=== PATIENT | male | born 1940 | race Caucasian/White ===

== ENCOUNTER → 2017-05-11 | Outpatient (CLI) | payer MEDICARE, OTHER, SELFPAY | PROVIDERS: Family Provider Family Medicine; Visit Provider Family Medicine | DX: A09 Infectious gastroenteritis and colitis, unspecified (principal); R10.84 Generalized abdominal pain; R11.14 Bilious vomiting | CPT/HCPCS: 36415; 74022; 80053; 85025 ==

== ENCOUNTER → 2017-08-21 09:47 | Outpatient (CLI) | payer MEDICARE, OTHER, SELFPAY ==
--- NOTE | 2017-08-21 09:54 | NM_ITS ---
NM gastric emptying study INDICATION: Abdominal pain and bloating. ITS.REASON: ABD DISTENSION, NON-INTRACTABLE VOMITING WITHOUT NAUSEA TECHNIQUE: Patient was administered a radiolabeled meal which comprised of 0.52 uCi Tc sulfur colloid injected into 2 whole eggs served with 1 piece white toast with butter in 4 ounces of water. Scanning of the stomach performed after this meal performed for 90 minutes FINDINGS Using the entire stomach as Region of Interest: . The T1/2 half is 47 minutes. The T0 -T1/2 half is 47 minutes. These values are less than 90 minutes -and thus within normal limits. This uses entire stomach as the region of interest. . There is 87 % gastric emptying at the end of the study (Note A second set of image processing utilized in the proximal 60% of the stomach was also submitted to PACS but I favor the entire stomach FAMILIA) === IMPRESSION: ====== Normal gastric imaging study. Prompt gastric emptying with T1/2 = 47 minutes..
== END ==
PROVIDERS: Family Provider Family Medicine; PCP Family Medicine; Visit Provider Family Medicine
DX: R14.0 Abdominal distension (gaseous) (principal); R11.11 Vomiting without nausea
CPT/HCPCS: 78264; A9541

== ENCOUNTER → 2017-08-24 08:49 | Outpatient (CLI) | payer MEDICARE, OTHER, SELFPAY ==
--- NOTE | 2017-08-24 08:52 | FL_ITS ---
NM upper GI small bowel Ordering Physician: Kishore Khanna MD Patient Age: 77 years: Male HISTORY: ITS.REASON: ABD DISTENSION,V/N, TECHNIQUE: Air-contrast UGI ; with small bowel follow-through subsequent CT abdomen and pelvis and 2012 COMPARISON : ======== AIR-CONTRAST UGI: Cervical esophagus appears overall satisfactory. Generous anterior marginal osteophytes at lower C-spine at C6/7 indents the aspect cervical esophagus.. Less evident spurs at other levels.. Moderate cricopharyngeus muscle is just above this level and seems to relax appropriately with swallowing. These features both slightly indents the posterior cervical esophagus but do not impair passage of liquid barium. Vallecula and piriform sinuses appear symmetric. Small -moderate sliding hiatal hernia .. This is consistent evident Only mild tapering at the Z line, GE junction region. No stenosis or restriction. Upper normal mucosal pattern at hiatal hernia. The stomach appears normal. There was slight delay in gastric emptying with some mild irritability seen at the antrum and pylorus.. Upper normal rugal folds and antrum could reflect mild gastritis here but unimpressive. No definitive nor discrete ulcer.. Good gastric emptying and normal appearance to the duodenal bulb, and duodenal loop. Dextroscoliosis & degenerative changes throughout the lumbar spine noted. Also right hip prosthesis noted ======= SMALL BOWEL SERIES Small bowel follow-through then performed Proximal small bowel appeared normal throughout with no dilatation. No obstruction. No mucosal thickening. Terminal ileum appears normal. Normal transit ===IMPRESSION: ========= 1. No prominent findings. Minor observations 2. UGI: ..Only note Mild irritability and slight generous mucosal and distal antrum Could possibly reflect a minor antral gastritis. No ulcer is seen here, nor at pylorus, nor at duodenal bulb. 3. Small bowel series. Normal 2.
== END ==
PROVIDERS: Family Provider Family Medicine; PCP Family Medicine; Visit Provider Family Medicine
DX: R14.0 Abdominal distension (gaseous) (principal); R11.11 Vomiting without nausea
CPT/HCPCS: 74245

== ENCOUNTER → 2017-10-02 15:08 | Outpatient (POV) | payer MEDICARE, OTHER, SELFPAY | PROVIDERS: Visit Provider Nurse Practitioner Acute Care | DX: Z00.00 Encounter for general adult medical examination without abnormal findings (principal) ==

== ENCOUNTER → 2017-11-24 07:52 | Outpatient (CLI) | payer MEDICARE, OTHER, SELFPAY ==
--- NOTE | 2017-11-24 07:54 | US_ITS ---
US abdomen limited History:Abdominal pain with nausea and vomiting Ordering Physician:Shahzad Goodman MD Patient Age: 77 years Comparison:None Findings: Pancreas:Unremarkable. No obvious mass or abnormal fluid collection. No ductal dilatation Liver:There is increased echogenicity of the liver suggesting hepatic steatosis. Right Kidney:5 x 4 cm right renal cyst. No hydronephrosis Gallbladder: Multiple gallstones are present. No wall thickening, pericholecystic fluid, or biliary dilatation. Common bile duct is 3 mm. IMPRESSION: Cholelithiasis with hepatic steatosis
== END ==
PROVIDERS: Family Provider Family Medicine; PCP Family Medicine; Visit Provider Internal Medicine Gastroenterology
DX: R10.13 Epigastric pain (principal); R10.11 Right upper quadrant pain
CPT/HCPCS: 76705

== ENCOUNTER → 2018-01-15 09:21 | Outpatient (POV) | payer MEDICARE, OTHER, SELFPAY | PROVIDERS: Visit Provider Nurse Practitioner Acute Care | DX: Z00.00 Encounter for general adult medical examination without abnormal findings (principal) ==

== ENCOUNTER → 2018-02-20 14:09 | Outpatient (POV) | payer MEDICARE, OTHER, SELFPAY | PROVIDERS: Visit Provider Dermatology | DX: Z00.00 Encounter for general adult medical examination without abnormal findings (principal) ==

== ENCOUNTER → 2018-04-24 09:46 | Outpatient (POV) | payer MEDICARE, OTHER, SELFPAY | PROVIDERS: Visit Provider Dermatology | DX: Z00.00 Encounter for general adult medical examination without abnormal findings (principal) ==

== ENCOUNTER 2018-05-22 18:56 | Observation (INO) ==
[2018-05-22 19:28] LABS: Microscopic, Urine URINE MICROSCOPIC (MICROSCOPIC)
[2018-05-22 19:31] LABS: Appearance,Urine CLEAR (Clear); Bilirubin,Urine Negative (Negative); Blood, Urine 1+ (Negative); Color,Urine YELLOW (Yellow); Glucose,Urine (UA) Negative (Negative); Ketones,Urine Negative (Negative); Leukocyte Esterase,Urine Negative (Negative); PH,Urine 5.5 (5.0-8.5); Protein,Urine Negative (Negative); Specific Gravity, Urine >= 1.030 (1.005-1.030); Urobilinogen,Urine 0.2 EU/dl (0.2)
[2018-05-22 19:32] LABS: Basophils % 0.2 % (0.1-2.0); Eosinophils # 0.1 K/mm3 (0.0-0.4); Eosinophils % 0.9 % (0.1-12.0); Hematocrit 46.1 % (42.0-52.0); Hemoglobin 15.2 g/dL (14.1-18.0); Lymphocytes # 1.3 K/mm3 (0.7-4.5); Lymphocytes % 13.2 % (10-50); Mean Corpuscular HGB Conc 32.9 g/dL (31.8-35.4); Mean Corpuscular Hemoglobin 29.7 pg (27.0-31.2); Mean Corpuscular Volume 90.1 fl (80-94); Mean Platelet Volume 7.9 fl (7.4-10.4); Monocytes # 0.7 K/mm3 (0.1-1.0); Monocytes % 6.8 % (1.7-9.3); Neutrophils # 7.9 K/mm3 (1.8-7.8); Neutrophils % 78.9 % (37.0-80.0); Platelet Count 160 K/mm3 (142-424); Red Blood Count 5.11 M/mm3 (4.60-6.20); Red Cell Distribution Width 13.8 % (11.5-17.5); White Blood Count 10.1 K/mm3 (4.8-10.8)
[2018-05-22 19:39] LABS: Bacteria,Urine 1+ /lpf; Mucus,Urine 1+ /lpf
[2018-05-22 19:46] LABS: Alanine Aminotransferase 23 U/L (12-78); Albumin Level 3.6 gm/dL (3.4-5.0); Alkaline Phosphatase 118 U/L (46-116); Amylase 60 U/L (25-115); Anion Gap 14.1 mEq/L (5-15); Aspartate Amino Transferase 21 U/L (15-37); Bilirubin,Total 0.8 mg/dL (0.2-1.0); Blood Urea Nitrogen 19 mg/dL (7-18); C-Reactive Protein 3.2 mg/L (0.0-0.9); Calcium 8.9 mg/dL (8.5-10.1); Carbon Dioxide 26 mmol/L (21.0-32.0); Chloride 103 mmol/L (98-107); Globulin 3.7 gm/dl (1.3-3.2); Glucose 104 mg/dL (74-106); Lipase 98 u/L (73-393); Potassium 3.1 mmoL/L (3.5-5.1); Sodium 140 mmol/L (136-145); Total Protein,Serum 7.3 gm/dL (6.4-8.2)
--- NOTE | 2018-05-22 20:04 | Emergency Department Note ---
ED Disposition Clinical Impression: Colitis Disposition: Admitted as Observation Condition on Discharge: Good Time of Disposition: 22:00 - Critical Care Critical Care Time: No Attestation: On 05/22/18, the high probability of a clinically significant, sudden or life threatening deterioration of the following system(s) required my full and direct attention, intervention and personal management. The time I documented below is in addition to time spent performing reported procedures but includes the fo wilnerwing listed in this critical care notation. Medical Decision Making - Medical Records Medical records reviewed: Yes: I reviewed the patient's medical records. - Georges Inquiry Pt receiving controlled substance: No Georges was queried for this patient: No Vital Signs: 05/22/18 19:09 05/22/18 19:10 05/22/18 19:35 Temperature 98.5 F 98.5 F Temperature Source Oral Oral Pulse Rate Pulse Rate [Right Brachial] 92 H 92 H 85 Respiratory Rate 15 15 16 Blood Pressure Blood Pressure [Right Arm] 164/92 H 164/92 H 170/89 H Blood Pressure Mean [Right Arm] 116 116 116 Blood Pressure Source [Right Arm] Automatic Cuff Blood Pressure Position [Right Arm] Sitting 02 Sat by Pulse Oximetry 95 95 96 Oxygen Delivery Method Room Air Room Air 05/22/18 21:15 05/22/18 21:31 Temperature 98.5 F 98.4 F Temperature Source Oral Oral Pulse Rate 66 Pulse Rate [Right Brachial] 80 Respiratory Rate 15 16 Blood Pressure 159/76 H Blood Pressure [Right Arm] 176/93 H Blood Pressure Mean [Right Arm] 120 Blood Pressure Source [Right Arm] Automatic Cuff Blood Pressure Position [Right Arm] Sitting 02 Sat by Pulse Oximetry 98 Oxygen Delivery Method Room Air Room Air - Lab Data Lab results reviewed: Yes: I reviewed the patient's lab results. Lab Results 05/22/18 19:20: Urine Color Yellow, Urine Appearance Clear, Urine pH 5.5, Ur Specific [place] >= 1.030, Urine Protein Negative, Urine Glucose (UA) Negative, Urine Ketones Negative, Urine Blood 1+, Urine Nitrate Negative, Urine Bilirubin Negative, Urine Urobilinogen 0.2, Ur Leukocyte Esterase Negative, Urine RBC 5- 10, Urine WBC 3-5, Ur Squamous Epith Cells 3-5, Urine Bacteria 1+, Urine Mucus 1+ 05/22/18 19:20: WBC 10.1, RBC 5.11, Hgb 15.2, Hct 46.1, MCV 90.1, MCH 29.7, MCHC 32.9, RDW 13.8, Plt Count 160, MPV 7.9, Neut % (Auto) 78.9, Lymph % (Auto) 13.2, [place] % (Auto) 6.8, Eos % (Auto) 0.9, Baso % (Auto) 0.2, Neut # (Auto) 7.9 H, Lymph # (Auto) 1.3, [place] # (Auto) 0.7, Eos # (Auto) 0.1, Baso # (Auto) 0.0, ESR 23 H 05/22/18 19:20: Sodium 140, Potassium 3.1 L, Chloride 103, Carbon Dioxide 26, Anion Gap 14.1, BUN 19 H, Creatinine 1.31 H, Estimated Creat Clear 62, Estimated GFR 53 L, Est GFR ( Amer) 64, Glucose 104, Calcium 8.9, Total Bilirubin 0.8, AST 21, ALT 23, Alkaline Phosphatase 118 H, Troponin I < 0.02, C-Reactive Protein 3.2 H, Total Protein 7.3, Albumin 3.6, Globulin 3.7 H, Albumin/Globulin Ratio 1.0 L, Amylase 60, Lipase 98 05/22/18 19:20: Lactate 0.9 Result diagrams: 05/23/18 05:38 05/23/18 05:38 Orders (Tests/Meds): ED MEDICATIONS Discontinued Medications Generic Name Dose Route Start Last Admin Trade Name Freq PRN Reason Stop Dose Admin Acetaminophen 650 mg 05/22/18 21:22 Acetaminophen 325mg Tab PO 06/21/18 21:21 Q4HP PRN As Needed for Fever or Pain Sodium Chloride 1,000 mls @ 999 mls/hr 05/22/18 19:15 05/22/18 19:16 Sod Chlor 0.9% 1000ml Bag IV 05/22/18 20:15 999 mls/hr .Q1H1M CABRERA Administration Sodium Chloride 1,000 mls @ 999 mls/hr 05/22/18 21:22 Sod Chlor 0.9% 1000ml Bag IV 05/22/18 22:22 .Q1H1M CABRERA Lactated Ringer's 1,000 mls @ 100 mls/hr 05/22/18 21:22 05/22/18 22:23 Lactated Ringer's 1000 Ml Bag IV 06/21/18 21:21 100 mls/hr .Q10H CABRERA Administration Ketorolac Tromethamine 30 mg 05/22/18 19:13 05/22/18 19:16 Toradol 30mg/Ml Vial IV 05/22/18 19:14 30 mg ONCE ONE Administration Pt's Own Med 20 mg 05/23/18 09:00 05/23/18 10:13 Esomeprazole PO 06/22/18 08:59 Not Given Magnesium [Nexium DAILY [facility] 24hr] 20 Mg Ondansetron HCl 4 mg 05/22/18 19:13 05/22/18 19:16 Zofran 4mg/2ml Vial IV 05/22/18 19:14 4 mg ONCE ONE Administration ORDERS Category Date Time Status Urinalysis and Microscopic Stat Lab 05/22/18 19:20 Ordered Abdominal Pain HPI - General Chief Complaint: Abdominal Pain Stated Complaint: PASSING BLOOD THUR STOOLS Time Seen by Provider: 05/22/18 20:03 Mode of Arrival: Ambulatory Source of Information: Patient, Spouse Limitations: No Limitations Description of Symptoms (Recalled from ER Triage Doc. by RN): Reports bleeding from his bowels, started last night. Reports abd pain, nausea, and vomiting. 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 - History of Present Illness HPI narrative: began last night, has passed "bright red blood" per rectum 4-5 times since. No orthostatic symptoms atg present. GI doc is Shahzad Buckner MD complaint: abdominal pain - Related Data Home Medications Medication Instructions Recorded Confirmed RX: Esomeprazole Magnesium [Nexium 20 mg PO DAILY 10/10/17 05/22/18 24Hr] RX: L.acidoph,Paracasei, B.lactis 1 each PO DAILY 05/22/18 05/22/18 [Probiotic] Allergies Allergy/AdvReac Type Severity Reaction Status Date / Time No Known Allergies Allergy Verified 11/14/17 13:53 [facility] History - Hepatitis A Screen Drug use history?: No High risk sexual behaviors?: No History of sexually transmitted infection?: No Currently employed?: No Childcare worker?: No Do you have indoor plumbing?: Yes Do you have electricity?: Yes Attestation statement:: This patient has been screened for Hepatitis A risk factors. I have reviewed the patient's past medical history: Yes Medical History: Reports:: Cancer (SKIN), Gastroesophageal Reflux Disease(GERD) Denies:: Diabetes Mellitus Type 1, Diabetes Mellitus Type 2, Internal Pacemaker, Lung Disease, MRSA, Seizures Other Surgeries: No: Pacemaker Amputation: No Fractures: No Comment: R Hip, Cataract, hernia - Social History Educational Level: Completed Grade School Alcohol Intake: never - Psychiatric History Expresses thoughts of harming self/others: None Suicide Plan Description: No Plan ROS Obtained: Yes All systems reviewed & no additional complaints - Constitutional Constitutional: Reports system reviewed and no additional complaints, except as docu, Reports chills, Denies fever(s), Denies weakness - Eyes Eyes: Reports system reviewed and no additional complaints, except as docu, Denies change in vision - ENT Ears, Nose, Mouth, and Throat: Reports system reviewed and no additional complaints, except as docu, Reports difficulty swallowing, Reports headache(s), Reports sinus pressure, Reports sore throat - Cardiovascular Cardiovascular: Reports system reviewed and no additional complaints, except as docu, Denies chest pain, Denies dyspnea, Denies palpitations, Denies rapid heart rate - Respiratory Respiratory: Yes system reviewed and no additional complaints, except as docu, No chest congestion, No cough - Gastrointestinal Gastrointestingal: Reports: system reviewed and no additional complaints, except as docu, abdominal pain, belching, cramping, diarrhea, bright red blood in stools. Denies: coffee ground emesis - Genitourinary Male Genitourinary: Reports system reviewed and no additional complaints, except as docu, Denies flank pain - Musculoskeletal Musculoskeletal: Reports system reviewed and no additional complaints, except as docu, Denies joint pain, Denies decreased muscle mass, Denies limited range of motion, Denies muscle aches - Integumentary/Breasts Skin/Breast: Reports system reviewed and no additional complaints, except as docu, Denies rash, Denies skin swelling - Neurologic Neurologic: Reports system reviewed and no additional complaints, except as do cu, Denies syncope - Hematologic/Lymphatic Henatologic/Lymphatic: Denies easy bleeding, Denies easy bruising - Allergic/Immunologic Allergic/Immunologic: Reports system reviewed and no additional complaints, except as docu Physical Exam - General General appearance: alert, in no apparent distress - Head Head exam: atraumatic - Eye Eye exam: Present: normal appearance, PERRL, EOMI - ENT ENT exam: Present: normal exam, normal oropharynx, mucous membranes moist, TM's normal bilaterally, normal external ear exam - Neck Neck exam: Present: normal inspection - Chest Chest inspection: Present: normal inspection, symmetric chest wall rise. Absent: tenderness - Respiratory Respiratory exam: Present: normal lung sounds bilaterally. Absent: respiratory distress - Cardiovascular Cardiovascular exam: Present: regular rate. Absent: bradycardia, tachycardia - Abdominal Exam Abdominal exam: Present: soft, normal bowel sounds. Absent: distention, tenderness, guarding - Extremities Exam Extremities exam: Present: normal inspection, full ROM, normal capillary refill. Absent: calf tenderness - Back Exam Back exam: Present: normal inspection - Neurological Exam Neurological exam: Present: alert, oriented X3 - Psychiatric Psychiatric exam: Present: normal affect, normal mood - Skin Skin exam: Present: warm, dry, intact, normal color - Lymphatic Lymphatic Findings: no adenopathy
[2018-05-22 20:16] LABS: Erythrocyte Sedimentation Rate 23 mm/hr (0-20)
[2018-05-23 06:35] LABS: Basophils % 0.5 % (0.1-2.0); Eosinophils # 0.1 K/mm3 (0.0-0.4); Eosinophils % 1.8 % (0.1-12.0); Hematocrit 40.6 % (42.0-52.0); Lymphocytes # 1.3 K/mm3 (0.7-4.5); Lymphocytes % 18.9 % (10-50); Mean Corpuscular HGB Conc 32.1 g/dL (31.8-35.4); Mean Corpuscular Hemoglobin 29.6 pg (27.0-31.2); Mean Corpuscular Volume 92.3 fl (80-94); Mean Platelet Volume 7.7 fl (7.4-10.4); Monocytes # 0.4 K/mm3 (0.1-1.0); Neutrophils # 5.2 K/mm3 (1.8-7.8); Neutrophils % 72.9 % (37.0-80.0); Platelet Count 137 K/mm3 (142-424); Red Cell Distribution Width 13.9 % (11.5-17.5); White Blood Count 7.1 K/mm3 (4.8-10.8)
[2018-05-23 06:46] LABS: Calcium 8.4 mg/dL (8.5-10.1)
--- NOTE | 2018-05-23 07:31 | H&P/Discharge Summary ---
General - General Admission date:: 05/22/18 Discharge date: 05/23/18 *Admission Date: 05/22/18 *Chief complaint: Blood in stool *History of present illness: 78-year-old male was in his normal state of health on May 21 when he developed sudden onset of diaphoresis, crampy abdominal pain and ultimately began passing blood in his stool. Patient had been feeling well throughout the day on when he went and ate at [employer] with his family. Approximately 2 hours after having his favorite meal of roast beef mashed potatoes, and corn he developed his symptoms. Patient had frequent bowel mov ements mixed with blood. Yesterday evening he had a movement that had so much blood that filled the toilet bowl. This is when he became worried and presented to the emergency department. In the ER patient's workup revealed some mild abdominal tenderness, and CT scan showing some mild left-sided colitis, and will hemoglobin and hematocrit. Patient was admitted overnight for observation on IV fluids. [facility] History I have reviewed the patient's past medical history: Yes Medical History: Reports:: Cancer (SKIN), Gastroesophageal Reflux Disease(GERD) Denies:: Diabetes Mellitus Type 1, Diabetes Mellitus Type 2, Internal Pacemaker, Lung Disease, MRSA, Seizures Other Surgeries: Yes: Cholecystectomy, Colon Resection. No: Pacemaker Amputation: No Fractures: No - *Social History Educational Level: Completed Grade School Smoking Status: Former smoker Tobacco Type: cigarettes # Packs/Day (cigarettes): 1 #Yrs smoked (if former smoker): 40 Alcohol Intake: never Occupational Status: retired Housing: house Household Members: spouse - Psychiatric History Expresses thoughts of harming self/others: None Suicide Plan Description: No Plan *Family Hx:: Cancer, Hypertension Review of Systems - Review of Systems Review of systems:: pertinent systems reviewed and negative unless documented below - *Neurologic Reports headache(s), Denies fainting, Denies weakness Exam Vital signs and Labs for Last 24 Hours: Temp Pulse Resp BP Pulse Ox 97.9 F 75 16 130/72 94 L 05/23/18 04:00 05/23/18 04:00 05/23/18 04:00 05/23/18 04:00 05/23/18 04:00 Laboratory Results - last 24 hr 05/22/18 19:20: Urine Color Yellow, Urine Appearance Clear, Urine pH 5.5, Ur Specific [place] >= 1.030, Urine Protein Negative, Urine Glucose (UA) Negative, Urine Ketones Negative, Urine Blood 1+, Urine Nitrate Negative, Urine Bilirubin Negative, Urine Urobilinogen 0.2, Ur Leukocyte Esterase Negative, Urine RBC 5- 10, Urine WBC 3-5, Ur Squamous Epith Cells 3-5, Urine Bacteria 1+, Urine Mucus 1+ 05/22/18 19:20: WBC 10.1, RBC 5.11, Hgb 15.2, Hct 46.1, MCV 90.1, MCH 29.7, MCHC 32.9, RDW 13.8, Plt Count 160, MPV 7.9, Neut % (Auto) 78.9, Lymph % (Auto) 13.2, [place] % (Auto) 6.8, Eos % (Auto) 0.9, Baso % (Auto) 0.2, Neut # (Auto) 7.9 H, Lymph # (Auto) 1.3, [place] # (Auto) 0.7, Eos # (Auto) 0.1, Baso # (Auto) 0.0, ESR 23 H 05/22/18 19:20: Sodium 140, Potassium 3.1 L, Chloride 103, Carbon Dioxide 26, Anion Gap 14.1, BUN 19 H, Creatinine 1.31 H, Estimated Creat Clear 62, Estimated GFR 53 L, Est GFR ( Amer) 64, Glucose 104, Calcium 8.9, Total Bilirubin 0.8, AST 21, ALT 23, Alkaline Phosphatase 118 H, Troponin I < 0.02, C-Reactive Protein 3.2 H, Total Protein 7.3, Albumin 3.6, Globulin 3.7 H, Albumin/Globulin Ratio 1.0 L, Amylase 60, Lipase 98 05/22/18 19:20: Lactate 0.9 05/23/18 05:38: WBC 7.1 D, RBC 4.40 L, Hgb 13.0 L D, Hct 40.6 L, MCV 92.3, MCH 29.6, MCHC 32.1, RDW 13.9, Plt Count 137 L, MPV 7.7, Neut % (Auto) 72.9, Lymph % (Auto) 18.9, [place] % (Auto) 6.0, Eos % (Auto) 1.8, Baso % (Auto) 0.5, Neut # (Auto) 5.2, Lymph # (Auto) 1.3, [place] # (Auto) 0.4, Eos # (Auto) 0.1, Baso # (Auto) 0.0 05/23/18 05:38: Sodium 142, Potassium 3.0 L, Chloride 107, Carbon Dioxide 27, Anion Gap 11.0, BUN 18, Creatinine 1.21, Estimated Creat Clear 69, Estimated GFR 58 L, Est GFR ( Amer) 70, Glucose 88, Calcium 8.4 L I & O for Last 24 hours: Intake & Output 05/20/18 05/21/18 05/22/18 05/23/18 11:59 11:59 11:59 11:59 Intake Total 1654 / 1654 Balance 1654 / 1654 Weight 209 lb 2 oz Narrative: Patient appears well and in no distress. He is oriented to person and time. There is no pallor. There is no diaphoresis. Oropharynx is moist and clear. Neck is without lymphadenopathy. Lungs are clear. Heart has a regular rate and rhythm. Abdomen is soft, nontender, nondistended with normal bowel sounds. Extremities are warm to the touch and there is no edema. He has active range of motion in all extremities. Hospital Course Hospital Course: Patient was admitted for observation. He did not have another bowel movement. Plan had been to test stool for infection. Based on patient's story of onset of symptoms shortly after a meal I suspect some mild food poisoning. Patient's symptoms seemingly resolved and he was discharged home. Patient will follow-up in the office sometime next week. He will be contacted my office regarding his follow-up appointment Results Labs on day of discharge: Labs from last 24 hours 05/23/18 05/23/18 05/22/18 05:38 05:38 19:20 WBC 7.1 D RBC 4.40 L Hgb 13.0 L D Hct 40.6 L MCV 92.3 MCH 29.6 MCHC 32.1 RDW 13.9 Plt Count 137 L MPV 7.7 Neut % (Auto) 72.9 Lymph % (Auto) 18.9 [place] % (Auto) 6.0 Eos % (Auto) 1.8 Baso % (Auto) 0.5 Neut # (Auto) 5.2 Lymph # (Auto) 1.3 [place] # (Auto) 0.4 Eos # (Auto) 0.1 Baso # (Auto) 0.0 ESR Sodium 142 Potassium 3.0 L Chloride 107 Carbon Dioxide 27 Anion Gap 11.0 BUN 18 Creatinine 1.21 Estimated Creat Clear 69 Estimated GFR 58 L Est GFR ( Amer) 70 Glucose 88 Lactate 0.9 Calcium 8.4 L Total Bilirubin AST ALT Alkaline Phosphatase Troponin I C-Reactive Protein Total Protein Albumin Globulin Albumin/Globulin Ratio Amylase Lipase Urine Color Urine Appearance Urine pH Ur Specific [place] Urine Protein Urine Glucose (UA) Urine Ketones Urine Blood Urine Nitrate Urine Bilirubin Urine Urobilinogen Ur Leukocyte Esterase Urine RBC Urine WBC Ur Squamous Epith Cells Urine Bacteria Urine Mucus 05/22/18 05/22/18 05/22/18 19:20 19:20 19:20 WBC 10.1 RBC 5.11 Hgb 15.2 Hct 46.1 MCV 90.1 MCH 29.7 MCHC 32.9 RDW 13.8 Plt Count 160 MPV 7.9 Neut % (Auto) 78.9 Lymph % (Auto) 13.2 [place] % (Auto) 6.8 Eos % (Auto) 0.9 Baso % (Auto) 0.2 Neut # (Auto) 7.9 H Lymph # (Auto) 1.3 [place] # (Auto) 0.7 Eos # (Auto) 0.1 Baso # (Auto) 0.0 ESR 23 H Sodium 140 Potassium 3.1 L Chloride 103 Carbon Dioxide 26 Anion Gap 14.1 BUN 19 H Creatinine 1.31 H Estimated Creat Clear 62 Estimated GFR 53 L Est GFR ( Amer) 64 Glucose 104 Lactate Calcium 8.9 Total Bilirubin 0.8 AST 21 ALT 23 Alkaline Phosphatase 118 H Troponin I < 0.02 C-Reactive Protein 3.2 H Total Protein 7.3 Albumin 3.6 Globulin 3.7 H Albumin/Globulin Ratio 1.0 L Amylase 60 Lipase 98 Urine Color Yellow Urine Appearance Clear Urine pH 5.5 Ur Specific [place] >= 1.030 Urine Protein Negative Urine Glucose (UA) Negative Urine Ketones Negative Urine Blood 1+ Urine Nitrate Negative Urine Bilirubin Negative Urine Urobilinogen 0.2 Ur Leukocyte Esterase Negative Urine RBC 5-10 Urine WBC 3-5 Ur Squamous Epith Cells 3-5 Urine Bacteria 1+ Urine Mucus 1+ DS: Diagnosis - Discharge Diagnosis (1) Colitis Status: Acute Discharge Medications - Medications for Discharge Home Medication List at Discharge: Continue Esomeprazole Magnesium [Nexium 24Hr] 20 mg PO DAILY L.acidoph,Paracasei, B.lactis [Probiotic] 1 each PO DAILY Disposition Disposition: Home, Self-Care
--- NOTE | 2018-05-23 07:39 | Pharmacy Consult Notes ---
[facility] Pharmacy VTE Monitoring - Patient Demographics Admission date: 05/22/18 Report Date: 05/23/18 Time: 07:39 Allergies/Adverse Reactions: Patient Allergies No Known Allergies Allergy (Verified 11/14/17 13:53) Height: 1.75 m Weight: 94.858 kg Patient Problems: Current Active Problems Colitis (Acute) - VTE Risk Labs: VTE Related Lab Results Hgb 13.0 g/dL (14.1-18.0) L D 05/23/18 05:38 Hct 40.6 % (42.0-52.0) L 05/23/18 05:38 Plt Count 137 K/mm3 (142-424) L 05/23/18 05:38 BUN 18 mg/dL (7-18) 05/23/18 05:38 Creatinine 1.21 mg/dL (0.70-1.30) 05/23/18 05:38 Estimated Creat Clear 69 mL/min (50-200) 05/23/18 05:38 Was VTE Risk Assessment Performed: Yes VTE Score: 3 VTE Risk Level: Low Risk - Prophylaxis VTE Prophylaxis Ordered?: Yes Types of VTE Prophylaxis: TEDS Knee High Location of Applied Device: Bilateral Lower Extremeties - VTE Diagnosis Confirmed Treatment or plan recommended: Continue Current Treatment
== END 2018-05-23 10:47 | disposition home or self-care (01) ==
LOC: ER 18:56 → 2ND 18:56
PROVIDERS: ADMIT Family Medicine; ATTEND Family Medicine
CPT/HCPCS: 36415; 74176; 80048; 80053; 81001; 82150; 83605; 83690; 84484; 85025; 85651; 86140; 96365; 96375; 99284; G0378; J2405

== ENCOUNTER → 2019-01-29 14:24 | Outpatient (POV) | payer MEDICARE, OTHER, SELFPAY | PROVIDERS: Visit Provider Dermatology | DX: Z00.00 Encounter for general adult medical examination without abnormal findings (principal) ==

== ENCOUNTER → 2019-03-04 08:42 | Outpatient (POV) | payer MEDICARE, OTHER, SELFPAY | PROVIDERS: PCP Family Medicine; Visit Provider Nurse Practitioner Family | DX: Z00.00 Encounter for general adult medical examination without abnormal findings (principal) ==

== ENCOUNTER → 2019-06-28 10:05 | Outpatient (CLI) | payer MEDICARE, SELFPAY ==
--- NOTE | 2019-06-28 10:14 | CA_ITS ---
APPROVED REPORT EXAM: Comprehensive 2D, Doppler, and color-flow Echocardiogram Privacy Compliance Manager: Sandra Mayfield RDCS Ht: 5 ft 10 in Wt: 208lbs BSA: 2.12 BP: 130/72 mmHg Indications: Shortness of Breath, Dizziness and Vertigo, Hypertension/HDD 2D Dimensions LVOT 1.96 cm (M/F) 1.5-2.5 M-Mode Dimensions RVDd 2.81 cm (0.9-2.6) LVDd 4.66 cm (3.5-5.7) LVDs 3.86 cm (3.5-5.7) IVSd 1.00 cm (0.6-1.1) PWd 0.84 cm (0.6-1.1) EF (Teich) 35.90% FS 17.20% EDV (Teich) 100.30 mL ESV (Teich) 64.30 mL LV Diastology E/A Ratio 0.69 Mitral Valve MV A Velocity 72.00 (40-130 cm/s) Left Ventricle Left atrium is mildly enlarged, left ventricle is normal size, mild concentric left ventricular hypertrophy, visually estimated ejection fraction 55% with no regional wall motion abnormality, grade 1 diastolic dysfunction seen without tissue Doppler evidence of raise left atrial pressure. Right Ventricle Right atrium is mildly enlarged, right ventricle is normal size and contractility. Aortic Valve Aortic valve is minimally thickened and calcified, leaflet continue to display mobility. Mitral Valve Mitral valve is grossly normal, there is mild mitral regurgitation. Tricuspid Valve Tricuspid valve is grossly normal, there is mild tricuspid regurgitation, tricuspid regurgitation jet velocity is inadequate for calculation of the right ventricular systolic pressure. Pulmonic Valve Pulmonic valve is poorly visualized. Great Vessels Aortic root is normal size. Pericardium No significant pericardial effusion noted. Conclusion 1. Mild biatrial enlargement, normal left ventricular size, mild concentric left ventricular hypertrophy, visually estimated ejection fraction 55% with no regional wall motion abnormality, grade 1 diastolic dysfunction seen without tissue Doppler evidence of raise left atrial pressure. 2. Mild mitral and tricuspid regurgitation. 3. No significant pericardial effusion noted. Electronically signed by : Raheem Chris, 06/28/2019 13:43:46
== END ==
PROVIDERS: PCP Family Medicine; Visit Provider Nurse Practitioner
DX: R06.02 Shortness of breath (principal); R60.9 Edema, unspecified
CPT/HCPCS: 93306

== ENCOUNTER → 2020-07-16 09:24 | Outpatient (POV) | payer MEDICARE, SELFPAY | PROVIDERS: Visit Provider Audiologist | DX: Z00.00 Encounter for general adult medical examination without abnormal findings (principal) ==

== ENCOUNTER → 2020-07-29 15:14 | Outpatient (CLI) | payer MEDICARE, SELFPAY ==
--- NOTE | 2020-07-29 15:23 | XR_ITS ---
PROCEDURE: XR ACUTE ABDOMEN SERIES CLINICAL INDICATION: ABD PAIN COMPARISON: CR CXR CHEST(2 VIEWS-NOT PORTABLE) from 10/02/2013 FINDINGS: Frontal view of the chest shows no acute finding. 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 Mild pleural thickening noted along the right lateral hemithorax. Lungs are clear. Upright and supine views of the abdomen show scattered air-fluid levels in both large and small bowel and could be due to ileus or enterocolitis. No free air apparent. Lumbar scoliosis convex right. Sclerosis involves the SI joint on the left. Prior right hip hemiarthroplasty. Degenerative changes left hip. IMPRESSION: Scattered air-fluid levels within large and small bowel which may represent ileus and or enterocolitis Dictated by: Laith Vizcarra MD 07/29/2020 16:04 Laith Vizcarra MD in [place] 07/29/2020 16:04
== END ==
PROVIDERS: PCP Family Medicine; Visit Provider Family Medicine
DX: R10.9 Unspecified abdominal pain (principal)
CPT/HCPCS: 74021

== ENCOUNTER → 2020-08-20 12:17 | Outpatient (CLI) | payer MEDICARE, SELFPAY ==
--- NOTE | 2020-08-20 12:25 | XR_ITS ---
PROCEDURE: XR KUB CLINICAL INDICATION: ABD PAIN COMPARISON: CT ABDPELWO CT abdomen pelvis wo con from 05/22/2018 FINDINGS: Dextroscoliosis of the lumbar spine noted. Non-specific nonobstructive bowel gas pattern is noted. No focal calcifications projecting over the renal outlines. Total right hip arthroplasty. IMPRESSION: Nonspecific nonobstructive bowel gas pattern. No acute abnormality. Dictated by: Loli Brock 08/20/2020 17:20 Loli Brock in OV 08/20/2020 17:20
--- NOTE | 2020-08-20 12:25 | XR_ITS ---
PROCEDURE: XR CHEST 2V CLINICAL HISTORY: RT SIDED CHEST PAIN COMPARISON: CR CXR1 CHEST-PORTABLE from 05/22/2012 CR CXR1 CHEST-PORTABLE from 05/23/2012 CR CXR CHEST(2 VIEWS-NOT PORTABLE) from 10/02/2013 FINDINGS: The cardiomediastinal silhouette and pulmonary vascularity are within normal limits. The lungs are clear without infiltrates, suspicious nodules, or pleural effusions. No acute bony abnormalities. IMPRESSION: No acute findings. Dictated by: Loli Brock 08/20/2020 17:18 Loli Brock in OV 08/20/2020 17:18
[2020-08-20 13:27] LABS: Basophils % 0.3 % (0.1-2.0); Eosinophils # 0.1 K/mm3 (0.0-0.4); Eosinophils % 0.5 % (0.1-12.0); Hematocrit 45.1 % (42.0-52.0); Hemoglobin 15.1 g/dL (14.1-18.0); Lymphocytes % 9.8 % (10-50); Mean Corpuscular HGB Conc 33.4 g/dL (31.8-35.4); Mean Corpuscular Hemoglobin 29.8 pg (27.0-31.2); Mean Corpuscular Volume 89.2 fl (80-94); Mean Platelet Volume 7.8 fl (7.4-10.4); Monocytes # 0.8 K/mm3 (0.1-1.0); Monocytes % 8.2 % (1.7-9.3); Neutrophils % 81.2 % (37.0-80.0); Platelet Count 155 K/mm3 (142-424); Red Blood Count 5.06 M/mm3 (4.60-6.20); Red Cell Distribution Width 13.9 % (11.5-17.5); White Blood Count 9.8 K/mm3 (4.8-10.8)
[2020-08-20 14:23] LABS: Chloride 98 mmol/L (98-107); Sodium 137 mmol/L (136-145)
[2020-08-20 14:26] LABS: Alanine Aminotransferase 16 U/L (12-78); Alkaline Phosphatase 91 U/L (38-126); Aspartate Amino Transferase 24 U/L (17-59); Bilirubin,Total 1.1 mg/dl (0.2-1.3); Blood Urea Nitrogen 19 mg/dl (9-20); Estimated Glomerular Filt Rate 53 ml/min (>60); GFR (African American) 64 ML/MIN (>60)
[2020-08-20 14:27] LABS: Albumin Level 4.4 g/dl (3.5-5.0); Albumin/Globulin Ratio 1.6 (1.1-1.8); Calcium 9.8 mg/dl (8.4-10.2); Carbon Dioxide 33 mmol/L (22.0-30.0); Globulin 2.7 g/dL (1.3-3.2); Glucose 96 mg/dl (74-100); Total Protein,Serum 7.1 g/dl (6.3-8.2)
[2020-08-20 14:39] LABS: Troponin I < 0.01 ng/ml (0.00-0.034)
== END ==
PROVIDERS: PCP Family Medicine; Visit Provider Nurse Practitioner Family
DX: R07.9 Chest pain, unspecified (principal); R10.11 Right upper quadrant pain
CPT/HCPCS: 36415; 71046; 74018; 80053; 84484; 85025

== ENCOUNTER → 2020-09-03 09:04 | Outpatient (POV) | payer MEDICARE, SELFPAY | PROVIDERS: Visit Provider Audiologist | DX: Z00.00 Encounter for general adult medical examination without abnormal findings (principal) ==

== ENCOUNTER → 2020-09-17 08:59 | Outpatient (POV) | payer MEDICARE, SELFPAY | PROVIDERS: Visit Provider Audiologist | DX: Z00.00 Encounter for general adult medical examination without abnormal findings (principal) ==

== ENCOUNTER → 2020-10-01 10:35 | Outpatient (POV) | payer MEDICARE, SELFPAY | PROVIDERS: Visit Provider Audiologist | DX: Z00.00 Encounter for general adult medical examination without abnormal findings (principal) ==

== ENCOUNTER → 2020-12-17 09:06 | Outpatient (POV) | payer MEDICARE, SELFPAY | PROVIDERS: Visit Provider Audiologist | DX: Z00.00 Encounter for general adult medical examination without abnormal findings (principal) ==

== ENCOUNTER → 2021-01-19 15:23 | Outpatient (CLI) | payer MEDICARE, SELFPAY ==
[2021-01-19 17:04] LABS: Troponin I < 0.01 ng/ml (0.00-0.034)
== END ==
PROVIDERS: Visit Provider Family Medicine
DX: R07.9 Chest pain, unspecified (principal)
CPT/HCPCS: 36415; 84484

== ENCOUNTER → 2021-02-27 09:10 | Outpatient (CLI) | payer MEDICARE, SELFPAY | PROVIDERS: Visit Provider Ophthalmology | DX: Z01.812 Encounter for preprocedural laboratory examination (principal); Z11.52 Encounter for screening for COVID-19 | CPT/HCPCS: C9803; U0003; U0005 ==

== ENCOUNTER 2021-03-02 08:27 | Day surgery (SDC) | payer MEDICARE, SELFPAY ==
[2021-02-24 14:30] VITALS: BMI 27.8
[2021-03-02 08:52] VITALS: BP 167/81; PULSE 48; RESP 18; TEMP 36.4; O2SAT 99
[2021-03-02 10:07] VITALS: BP 136/98; PULSE 48; RESP 18; TEMP 36.4; O2SAT 99
== END 2021-03-02 10:10 | disposition home or self-care (01) ==
LOC: OUTP 08:31
PROVIDERS: PCP Family Medicine; Visit Provider Ophthalmology
PROC: (CPT 66821; principal; 2021-03-02 09:00)
DX: H26.493 Other secondary cataract, bilateral (principal); Z96.1 Presence of intraocular lens; I10 Essential (primary) hypertension; Z79.899 Other long term (current) drug therapy
CPT/HCPCS: 66821

== ENCOUNTER → 2022-07-26 12:57 | Outpatient (CLI) | payer MEDICARE, SELFPAY ==
--- NOTE | 2022-07-26 13:01 | XR_ITS ---
FINAL REPORT CLINICAL HISTORY: lt hip pain FINDINGS: LEFT HIP Two views of the left hip demonstrate no acute fracture or dislocation. There are postoperative changes from right hip arthroplasty. There are moderate degenerative changes of the left hip. There are severe degenerative changes of the lumbar spine. The visualized bony structures are well aligned. No soft tissue abnormality is seen. IMPRESSION: Moderate degenerative changes with no acute bony abnormality. The acute bony abnormality. Reviewed, Interpreted and Dictated by Bar Bowen III, MD Transcribed by Alice Chua Authenticated and . [facility]
== END ==
PROVIDERS: PCP Family Medicine; Visit Provider Physician Assistant Surgical
DX: M25.552 Pain in left hip (principal)
CPT/HCPCS: 73502

== ENCOUNTER 2022-08-08 10:36 | Day surgery (SDC) | payer MEDICARE, SELFPAY ==
--- NOTE | 2022-08-08 | XR_ITS ---
FINAL REPORT CLINICAL HISTORY: LT HIP INJ IN OR, ft 5sec FINDINGS: Fluoroscopic guidance was provided for the operating services. A single spot film was provided. 5 seconds of fluoroscopy time was utilized. Dosage equals 1.60 mGy. IMPRESSION: 5 seconds of fluoroscopy time. 1.60 mGy Reviewed, Interpreted and Dictated by Francisco Cohen MD Transcribed by Alistair Shaikh Authenticated and [facility]
[2022-08-08 11:31] VITALS: BP 157/60; PULSE 87; RESP 18; TEMP 36.4; O2SAT 96; BMI 28.6
--- NOTE | 2022-08-08 11:36 | EXP.ANES.CKL ---
[facility] Disclaimer: The information contained in this section may have been updated after the patient was seen, as this information can be updated by other users. Medical History Cancer GERD (gastroesophageal reflux disease) Hernia Surgical History History of lumpectomy of both breasts History of right hip replacement Family History Other Cancer Hypertension Social History Smoking Status: Former smoker pack-years: 40 second hand exposure: No alcohol intake: never substance use type: denies use current occupational status: retired Travel in the last 8 weeks: None household members: spouse housing: house lives independently: No marital status: education level: high school service: Yes retirement: No current occupational exposures/hazards: No caffeine: Yes special paris needs: No agree to transfusion: No do you feel safe at home: Yes victim of physical abuse: No victim of emotional abuse: No victim of sexual abuse: No would you like helpful sources: No [facility] Anesthesia Checklist Patient Identification Patient Identification: Arm Band and Verbal (Name & ) Structural Data Admitted From: Home Planned Operative Procedure/s: Hip injection Consent for Planned Operative Procedure(s) Verified: Yes NPO Status Verified Time NPO: 00:00 Additional verifications Anesthesia Reactions: No Airway Assessment C-Spine Mobility Assessed: Yes TMJ Mobility Assessed: Yes Dentition: Poor Dentition Neurological Assessment Level of Consciousness: Awake Hx Seizures: No Numbness or tingling in extremities: No Anesthesia Plan Anesthesia Risk discussed: Yes Anesthesia Plan: Verified ASA Class: II Anesthesia Type: MAC
--- NOTE | 2022-08-08 12:29 | EXP.OP.NOTE ---
Date of procedure: 08/08/22 Pre-op Diagnosis:: Left hip osteoarthritis Post-op Diagnosis:: Same Procedure performed:: Left hip injection with arthrogram x-ray guidance for needle placement Surgeon:: Ankush Fuentes DO Anesthesia: MAC Estimated blood loss (mL): 0 Operative findings:: See dictation Operative note:: Patient was identified preoperatively. Left hip marked yes my initials. Transferred operative suite placed upon on the radiolucent bed. Sedation was given. Left hip prepped and draped in normal sterile fashion. Once prepped and draped final operative timeout performed to identify proper patient procedure and extremity. Everyone involved in case agreed. No counter indication beginning. X-ray was brought into identify the hip joint. Said after sedation was given an 18-gauge needle was placed in the proper trajectory into the hip capsule. This was confirmed on x-ray and contrast was placed in the hip joint to confirm intra-articular nature of the needle. Once confirmed 80 mg Kenalog 3 cc 1% lidocaine plain were injected into the hip. Patient tolerated procedure very well taken to recovery in stable condition. Condition: stable Disposition: PACU Complications:: None apparent
[2022-08-08 12:32] VITALS: BP 102/59; PULSE 49; RESP 16; TEMP 36.5; O2SAT 98
[2022-08-08 12:42] VITALS: BP 118/59; PULSE 47; RESP 16; O2SAT 97
[2022-08-08 12:52] VITALS: BP 125/73; PULSE 57; RESP 16; TEMP 36.5; O2SAT 97
== END 2022-08-08 13:00 | disposition home or self-care (01) ==
PROVIDERS: PCP Family Medicine; Visit Provider Orthopaedic Surgery
PROC: (CPT 20610; principal; 2022-08-08 12:00)
DX: M16.12 Unilateral primary osteoarthritis, left hip (principal); M25.552 Pain in left hip; Z87.891 Personal history of nicotine dependence
CPT/HCPCS: 20610; 73502; 76000

== ENCOUNTER → 2022-09-05 11:03 | Outpatient (CLI) | payer MEDICARE, SELFPAY ==
[2022-09-05 15:21] LABS: Basophils % 0.1 % (0.1-2.0); Eosinophils % 0.3 % (0.1-12.0); Hematocrit 43.8 % (42.0-52.0); Hemoglobin 14.5 g/dL (14.1-18.0); Lymphocytes # 0.5 K/mm3 (0.7-4.5); Lymphocytes % 5.7 % (10-50); Mean Corpuscular HGB Conc 33.1 g/dL (31.8-35.4); Mean Corpuscular Hemoglobin 30.2 pg (27.0-31.2); Mean Corpuscular Volume 91.4 fl (80-94); Mean Platelet Volume 8.7 fl (7.4-10.4); Monocytes # 0.5 K/mm3 (0.1-1.0); Monocytes % 6.1 % (1.7-9.3); Neutrophils # 6.8 K/mm3 (1.8-7.8); Neutrophils % 87.8 % (37.0-80.0); Platelet Count 191 K/mm3 (142-424); Red Blood Count 4.79 M/mm3 (4.60-6.20); Red Cell Distribution Width 14.6 % (11.5-17.5); White Blood Count 7.8 K/mm3 (4.8-10.8)
[2022-09-05 15:27] LABS: MANUAL DIFFERENTIAL MANUAL DIFFERENTIAL (MANUAL DIFF)
[2022-09-05 15:29] LABS: Chloride 98 mmol/L (98-107); Potassium 3.8 mmoL/L (3.5-5.1); Sodium 135 mmol/L (136-145)
[2022-09-05 15:32] LABS: Alanine Aminotransferase 21 U/L (12-78); Albumin/Globulin Ratio 1.5 (1.1-1.8); Alkaline Phosphatase 96 U/L (38-126); Anion Gap 13.8 mEq/L (5-15); Aspartate Amino Transferase 30 U/L (17-59); Bilirubin,Total 0.9 mg/dl (0.2-1.3); Blood Urea Nitrogen 24 mg/dl (9-20); Carbon Dioxide 27 mmol/L (22.0-30.0); Estimated Glomerular Filt Rate 58 ml/min (>60); GFR (African American) 70 ML/MIN (>60); Globulin 2.6 g/dL (1.3-3.2); Total Protein,Serum 6.6 g/dl (6.3-8.2)
[2022-09-05 15:33] LABS: Calcium 9.6 mg/dl (8.4-10.2); Glucose 107 mg/dl (74-100)
[2022-09-05 15:52] LABS: Eosinophils % 1 % (0-3); Lymphocytes % 4 % (10-50); Monocytes % 7 % (2-9); Neutrophils % 87 % (42-76); Platelet Estimate Normal; RBC Morphology Normal; Total Cells Counted 100
== END ==
PROVIDERS: PCP Nurse Practitioner Family; Visit Provider Nurse Practitioner Family
DX: R53.1 Weakness (principal); R69 Illness, unspecified
CPT/HCPCS: 80053; 85007; 85025

== ENCOUNTER → 2022-10-24 11:24 | Outpatient (CLI) | payer MEDICARE, SELFPAY ==
--- NOTE | 2022-10-24 11:33 | XR_ITS ---
FINAL REPORT CLINICAL HISTORY: PAIN FINDINGS: AP, lateral, and oblique views of the lumbar spine were obtained. There is no acute fracture or acute malalignment. Vertebral body height is preserved. There is mild dextroscoliosis of the lumbar spine. There is advanced degenerative disc disease noted throughout the lumbar spine. No acute paraspinal abnormality is identified. IMPRESSION: No acute osseous abnormalities lumbar spine. Advanced degenerative disc disease as described above. Reviewed, Interpreted and Dictated by Madison Landers MD Transcribed by Hollie Baker Authenticated and [facility]
--- NOTE | 2022-10-24 11:34 | XR_ITS ---
FINAL REPORT CLINICAL HISTORY: HIP PAIN FINDINGS: AP and frog leg views of the left hip were obtained. There is no prior exam for comparison. There is no acute fracture or dislocation. There is advanced degenerative disease in the left hip. There are changes of the right hip compatible with an arthroplasty. Calcifications in the pelvis are likely phleboliths. IMPRESSION: Advanced degenerative change of the left hip. Reviewed, Interpreted and Dictated by Madison Landers MD Transcribed by Hollie Baker Authenticated and [facility]
== END ==
PROVIDERS: PCP Family Medicine; Visit Provider Internal Medicine
DX: M54.50 Low back pain, unspecified (principal); M25.552 Pain in left hip
CPT/HCPCS: 72110; 73502

== ENCOUNTER → 2022-12-23 06:47 | Outpatient (CLI) | payer MEDICARE, SELFPAY ==
--- NOTE | 2022-12-23 | CA_ITS ---
APPROVED REPORT Exam: Pharmacologic Technologist: Mica Houser, Ht: 5 ft 10 in Wt: 195 lbs BSA: 2.07 m2 HR: 51 bpm BP: 137/64 mmHg Rhythm: NSR Medical History Medications: Lisinopril-HCTZ,,,,, Esomeprazole magnesium,,,,, Stress Test Details Test: LEXISCAN Reason for pharmacologic stress test: physical limitation. HR Resting HR: 52 bpm Max Heart Rate (APMHR): 139 bpm Max HR Achieved: 74 bpm Target HR (85% APMHR): 118 bpm % of APMHR: 53 Recovery HR: 60 bpm BP Resting BP: 137/64 mmHg Max BP: 137/64 mmHg Recovery BP: 128.0/57.0 mmHg ECG Resting ECG: Sinus bradycardia, PACs Stress ECG: No change Arrhythmia: PACs Recovery ECG: No change Clinical Exercise duration: 04:02 min Highest Stage Achieved: Stress ECG Conclusion Symptoms: None Arrhythmias/Ectoy: Occasional PACs ST-T Changes: no significant ST changes Conclusion: Unremarkable Lexiscan stress. Myoview images reported separately. Test Summary REST . . . . . . . Resting REST 04:19 . . 52 . 137/ 64 . . Stage 1 01:00 . . 61 . . . . Stage 2 01:00 . . 71 . . . . Stage 3 01:00 . . 65 . 132/ 64 . . Stage 4 01:00 . . 61 . 127/ 58 . . Stage 4 01:02 . . 60 . 127/ 58 . Stop exercise at 04:02 RECOVERY 01:00 . . 60 . 134/ 56 . . RECOVERY 02:00 . . 55 . 134/ 56 . . RECOVERY 03:00 . . 60 . 128/ 57 . . RECOVERY 03:16 . . 60 . 128/ 57 . . Electronically signed by : Brinda Zaragoza, 12/25/2022 18:53:19
--- NOTE | 2022-12-23 06:54 | NM_ITS ---
APPROVED REPORT Exam: Nuclear Stress Test Indication: soa..pre-op clearance Patient Location: Outpatient Stress Tech: Mica TAM Tech:DARLING Basilio RT(R)(N) Ht: 5 ft 10 in Wt: 190 lbs HR: 52 bpm BP: 137/64 mmHg BSA: 2.04 m2 TID: 0.96 BMI: 27.2 History: soa, pre-op clearance Procedure: Patient received 0.4 mg of intravenous Lexiscan, resting heart rate 52 bpm, resting blood pressure 137/64 mmHg, with Lexiscan maximum heart rate achieved was 74 bpm which is 85 % of the maximum predicted heart rate and blood pressure was 137/64 mmHg. With Lexiscan, patient denied any complaint of chest pain. The patient was not able to lie on his abdomen for prone images. Cardiac Stress and Resting SPECT Images: Cardiac Stress and Resting SPECT images were obtained using technetium 99m Myoview 32.2 mCi stress and 10.63 mCi at rest. The patient could not lie on his abdomen. Therefore prone stress imaging could not be obtained. Raw images demonstrate soft tissue overlapping with the cardiac borders. There is also significant GI uptake in the proximity of the cardiac borders. These may affect the diagnostic interpretation of the study findings. Resting and stress imaging in supine position demonstrate a medium sized, severe, predominantly reversible perfusion defects in the basal to mid inferior and inferoseptal LV beaulieu. Gated imaging demonstrates normal global LV systolic function. There is mild hypokinesis of the inferior and inferoseptal LV beaulieu. LVEF is calculated at 58%. Conclusion: The patient could not lie on his abdomen. Therefore prone stress imaging could not be obtained. Raw images demonstrate soft tissue overlapping with the cardiac borders. There is also significant GI uptake in the proximity of the cardiac borders. These may affect the diagnostic interpretation of the study findings. Resting and stress imaging in supine position demonstrate a medium sized, severe, predominantly reversible perfusion defects in the basal to mid inferior and inferoseptal LV beaulieu. Gated imaging demonstrates normal global LV systolic function. There is mild hypokinesis of the inferior and inferoseptal LV beaulieu. LVEF is calculated at 58%. Electronically signed by : Brinda Zaragoza, 12/25/2022 18:57:36
--- NOTE | 2022-12-23 08:18 | CA_ITS ---
APPROVED REPORT EXAM: Comprehensive 2D, Doppler, and color-flow Echocardiogram Food Service Utility Worker: ERIC Cardoso, RVS Ht: 5 ft 10 in Wt: 195lbs BSA: 2.07 HR: 61 bpm BP: 138/66 mmHg Rhythm: Atrial Fibrillation Indications: Preop lt hip repair, afib, exsmoker, sob, htn Echo Enhancing Agent Comments: Extremely limited windows due to patient incabaple of laying supine/LLD. Lung impedance.Very poor acoustics. 2D Dimensions IVSd 0.67 cm M: 0.6-1.2 LVEF (Visual) 49.30 % PWd 0.94 cm M: 0.6 - 1.2 LA Volume 49.70 mL LVDd 5.21 cm M: 4.2 - 5.9 LA Volume Index 24.01 mL/m2 (M/F) 16-34 LVDs 3.90 cm M: 2.5 - 4.0 Aortic Root 3.14 cm M: 3.1 - 3.7 Left Atrium 3.79 cm M: 3.0 - 4.0 LVOT 1.99 cm (M/F) 1.5-2.5 M-Mode Dimensions RVDd 2.63 cm (0.9-2.6) LA Diam 4.00 cm (1.9-4.0) LVDd 5.90 cm (3.5-5.7) Ao Diam 3.11 cm (2.0-3.7) LVDs 4.58 cm (3.5-5.7) IVSd 0.68 cm (0.6-1.1) PWd 0.85 cm (0.6-1.1) EF (Teich) 44.40% EPSs 1.49 cm FS 22.40% EDV (Teich) 173.20 mL TAPSE 1.83 (<1.7) ESV (Teich) 96.30 mL LV Diastology E Decel Time 157.00 (160-240 msec) E/A Ratio 1.42 MED E' 6.60 (< 7 cm/sec) MED A' 10.80 cm/s E'/MED E' Ratio 11.74 (>14) Aortic Valve LVOT Max 99.00 (70-110 cm/s) LVOT VTI 22.25 cm AoV Peak Jj. 107.00 (50-130 cm/s) AO Peak GR. 4.60 mmHg AO Mean GR. 2.30 (<5 mmHg) AO VTI 24.07 (18-25 cm) [place] (VTI) 2.88 (2.5-4.5 cm2) Mitral Valve MV A Velocity 55.00 (40-130 cm/s) E/A Ratio 1.42 MV Decel. Time 157.00 (160-240 ms) Pulmonary Valve PV Peak Velocity 82.00 (50-150 cm/s) Left Ventricle The left ventricle is normal size. The left ventricular systolic function is normal. The left ventricular ejection fraction is within the normal range. There is normal left ventricular wall thickness. Intermittent septal bounce is noted. There is normal LV segmental wall motion. The left ventricular diastolic function is normal. LVEF is 55%. Right Ventricle The right ventricle is normal size. The right ventricular systolic function is normal. There is increased RV wall thickness. Atria The left atrium size is normal. The right atrium size is normal. There is no Doppler evidence of interatrial shunt. Aortic Valve The aortic valve opens well. There is no aortic valvular stenosis. Trace aortic regurgitation. Mitral Valve The mitral valve is normal in structure. No evidence of mitral valve stenosis. Trace mitral regurgitation. Tricuspid Valve The tricuspid valve leaflets are thin and pliable. Trace tricuspid regurgitation. RVSP is normal. Pulmonic Valve The pulmonary valve is normal in structure. Trace pulmonic regurgitation. Great Vessels The aortic root is normal in size. IVC is normal in size and collapses >50% with inspiration. Pericardium There is a small circumferential pericardial effusion present. The largest pocket is located posteriorly and measures approximately 0.5 cm in diastole. No echo indications of tamponade. Other Information Study Quality: Technically Difficult. Technically limited study due to poor accoustic windows. Conclusion This is a technically difficult study due to poor accoustic windows. Normal biventricular systolic function. Increased RV wall thickness. Intermittent interventricular septal bounce is noted. No significant valvular disease. Small circumferential pericardial effusion. No echo indications of cardiac tamponade. Compared to prior study from 2020, the pericardial effusion is new. The above find
== END ==
LOC: RAD 06:48
PROVIDERS: PCP Family Medicine; Visit Provider Nurse Practitioner
DX: R06.09 Other forms of dyspnea (principal); I48.19 Other persistent atrial fibrillation
CPT/HCPCS: 78452; 93017; 93306; A9502; J2785

== ENCOUNTER → 2023-01-11 14:48 | Outpatient (CLI) | payer MEDICARE, SELFPAY | PROVIDERS: PCP Family Medicine; Visit Provider Internal Medicine | DX: I48.0 Paroxysmal atrial fibrillation (principal); R00.1 Bradycardia, unspecified; R94.30 Abnormal result of cardiovascular function study, unspecified; R94.31 Abnormal electrocardiogram [ECG] [EKG]; Z01.810 Encounter for preprocedural cardiovascular examination | CPT/HCPCS: 93270 ==

== ENCOUNTER 2023-02-02 09:00 | Observation (INO) | payer MEDICARE, SELFPAY ==
[2023-02-02] VITALS (25 sets, daily range): BP systolic 119–152; BP diastolic 49–97; PULSE 40–100; RESP 10–18; TEMP 36.6–36.7; O2SAT 93–100; BMI 28.7
--- NOTE | 2023-02-02 08:59 | ECG_ITS ---
APPROVED REPORT Exam: Resting ECG HR:67 bpm ECG Measurements Heart Rate 67 AXES [place] 164 P 87 QRSd 89 QRS 82 QT 389 T 65 QTc 404 Conclusion SINUS RHYTHM WITH OCCASIONAL SUPRAVENTRICULAR PREMATURE COMPLEXES NONSPECIFIC ST & T-WAVE ABNORMALITY BORDERLINE ECG UNCONFIRMED REPORT Electronically signed by : Kishore Pham MD 02/03/2023 16:04:13
--- NOTE | 2023-02-02 09:03 | XR_ITS ---
FINAL REPORT CLINICAL HISTORY: Precordial chest pain COMPARISON: 08/20/2020 FINDINGS: A single portable view of the chest was obtained. The heart size and pulmonary vascularity are within normal limits. The mediastinum is within normal limits. New right lung base opacities are worrisome for pneumonia. The bony thorax is intact. IMPRESSION: New right lung base opacities worrisome for pneumonia. Reviewed, Interpreted and Dictated by Bar Bowen III, MD Transcribed by Kelli Mckinney Authenticated and [facility]
--- NOTE | 2023-02-02 09:04 | HMH.EDGENADL ---
Discharge Plan Disposition Patient Disposition: Admitted Chief Complaint: Chest Pain Prescriptions Prescriptions: No Action esomeprazole magnesium 20 mg tablet,delayed release (DR/EC) 20 mg PO DAILY Qty: 90 3RF lisinopril 5 mg tablet 5 mg PO DAILY Referrals Follow up/Referrals: Jessica Peralta MD [Primary Care Provider] - See instructions Clinical Impressions Clinical Impression: Angina pectoris, unstable Discharge ED Provider: Hima Simms General Adult HPI General Chief complaint: Chest Pain Stated complaint: cp Time Seen by Provider: 02/02/23 09:03 History of Present Illness HPI narrative: Patient is a 82-year-old male with past medical history of paroxysmal atrial fibrillation, status post total right hip arthroplasty with decreased mobility at baseline, intermittent bradycardia who presents emergency department for evaluation of chest pain. Onset was acute, it awoke him from his sleep this morning, substernal radiating up into his left shoulder. No cough or fever. Symptoms are moderate to severe in intensity. No other acute complaints at this time. Per chart review patient was seen by cardiology yesterday and instructed to return to the ER if chest pain worsens. Stress imaging shows reversible perfusion defects in the mid inferior and inferior septal LV beaulieu and he is pending left heart cath. Patient states that he self discontinued his Eliquis 2 weeks ago. Related Data Home Medications Medication Instructions Recorded Confirmed lisinopril 5 mg tablet 5 mg PO DAILY 02/01/23 02/01/23 Previous Rx's Medication Instructions Recorded esomeprazole magnesium 20 mg 20 mg PO DAILY stomach #90 tabs 02/15/22 tablet,delayed release Allergies Allergy/AdvReac Type Severity Reaction Status Date / Time No Known Allergies Allergy Verified 02/01/23 14:06 [facility] Disclaimer: The information contained in this section may have been updated after the patient was seen, as this information can be updated by other users. Medical History Cancer GERD (gastroesophageal reflux disease) Hernia Surgical History History of lumpectomy of both breasts History of right hip replacement Family History Other Cancer Hypertension Social History Smoking Status: Never smoker second hand exposure: No alcohol intake: never substance use type: denies use current occupational status: retired Travel in the last 8 weeks: None household members: spouse housing: house lives independently: No marital status: education level: high school service: Yes snf: No current occupational exposures/hazards: No caffeine: Yes special paris needs: No agree to transfusion: No do you feel safe at home: Yes victim of physical abuse: No victim of emotional abuse: No victim of sexual abuse: No would you like helpful sources: No ROS Obtained: Yes Systems reviewed as appropriate & no additional complaints except as documented Physical Exam General General appearance: alert, in no apparent distress and other (Appearing uncomfortable in bed) Head Head exam: atraumatic and normocephalic Eye Eye exam: Present PERRL and EOMI ENT ENT exam: Present mucous membranes moist Neck Neck exam: Present normal inspection Chest Chest inspection: Present normal inspection and symmetric chest wall rise Respiratory Respiratory exam: Present normal lung sounds bilaterally; Absent respiratory distress Cardiovascular Cardiovascular exam: Present regular rate and irregular rhythm Abdominal Exam Abdominal exam: Present soft; Absent tenderness Extremities Exam Extremities exam: Present normal inspection Neurological Exam Neurological exam: Present alert Psy
[2023-02-02 09:22] LABS: Basophils % 0.3 % (0.1-2.0); Eosinophils # 0.3 K/mm3 (0.0-0.4); Eosinophils % 3.1 % (0.1-12.0); Hematocrit 44.1 % (42.0-52.0); Hemoglobin 14.3 g/dL (14.1-18.0); Lymphocytes # 1.3 K/mm3 (0.7-4.5); Lymphocytes % 14.9 % (10-50); Mean Corpuscular HGB Conc 32.5 g/dL (31.8-35.4); Mean Corpuscular Volume 92.4 fl (80-94); Mean Platelet Volume 8.4 fl (7.4-10.4); Monocytes # 0.6 K/mm3 (0.1-1.0); Neutrophils # 6.4 K/mm3 (1.8-7.8); Neutrophils % 74.7 % (37.0-80.0); Platelet Count 205 K/mm3 (142-424); Red Blood Count 4.77 M/mm3 (4.60-6.20); Red Cell Distribution Width 14.5 % (11.5-17.5); White Blood Count 8.6 K/mm3 (4.8-10.8)
[2023-02-02 09:36] LABS: Alanine Aminotransferase 21 U/L (12-78); Albumin Level 4.2 g/dl (3.5-5.0); Albumin/Globulin Ratio 1.3 (1.1-1.8); Alkaline Phosphatase 126 U/L (38-126); Anion Gap 11.6 mEq/L (5-15); Aspartate Amino Transferase 28 U/L (17-59); Bilirubin,Total 0.8 mg/dl (0.2-1.3); Blood Urea Nitrogen 21 mg/dl (9-20); Calcium 9.8 mg/dl (8.4-10.2); Carbon Dioxide 32 mmol/L (22.0-30.0); Chloride 100 mmol/L (98-107); Creatinine Clearance Estimated 53 mL/min (50-200); Estimated Glomerular Filt Rate 49 ml/min (>60); GFR (African American) 59 ML/MIN (>60); Globulin 3.2 g/dL (1.3-3.2); Glucose 95 mg/dl (74-100); Potassium 3.6 mmoL/L (3.5-5.1); Sodium 140 mmol/L (136-145); Total Protein,Serum 7.4 g/dl (6.3-8.2)
[2023-02-02 09:48] LABS: Troponin I < 0.01 ng/ml (0.00-0.034)
--- NOTE | 2023-02-02 10:36 | PC.NURSE ---
called cardiology for consult
--- NOTE | 2023-02-02 10:41 | PC.NURSE ---
rounded on patient no new complaints
--- NOTE | 2023-02-02 11:22 | PC.NURSE ---
Rounded on patient; pt given a warm blanket and placed in a gown. All belongings were placed in a pt belonging bag and given to . Call dean within reach.
--- NOTE | 2023-02-02 11:24 | IR_ITS ---
APPROVED REPORT Patient Location: Outpatient PROCEDURES Left heart catheterization Left ventriculogram Selective coronary angiogram INDICATION Preoperative evaluation, Abnormal Myoview, Angina pectoris, Informed consent was obtained prior to the procedure. COMPLICATIONS NONE Estimated Blood Loss: LESS THAN 10 ML TECHNIQUE One percent lidocaine used to anesthetize the right anterior aspect of the wrist. The right radial artery was accessed via the Seldinger technique. A 6 Syriac sheath was placed in the right radial artery. 2.5 mg of Verapamil, 800 mcg of nitroglycerin, 1mg Lidocaine and 5000 U Heparin were given through the arterial sheath. The papa catheter was also used to perform left heart catheterization, left ventriculogram and selective coronary angiogram. At the end of the procedure the sheath was removed good hemostasis was achieved using Traclet band, patient was transferred to the postop holding area in stable condition. ANGIOGRAPHIC RESULTS The left main artery Normal The left anterior descending artery Normal The circumflex artery Normal The right coronary artery Dominant normal The DES[place]ANDE ventriculogram reveals 65% normal The left ventricular end-diastolic pressure Elevated 20 mmHg IMPRESSION Normal coronary arteries Normal ejection fraction Elevated LVEDP consistent with diastolic dysfunction PLAN 1. Patient is alone acceptable risk from a cardiac standpoint to proceed with elective hip surgery 2. Treatment of diastolic dysfunction Electronically signed by : Gamal Ponce MD 02/02/2023 14:46:00
--- NOTE | 2023-02-02 11:50 | EXP.CARD.CON ---
History of Present Illness History of Present Illness Consult date: 02/02/23 Requesting physician: Hima Simms Chief complaint: chest pain History of present illness: 82-year-old white male with past medical history of cancer, GERD, hernia, paroxysmal atrial fibrillation a/c with eliquis presented to ER this morning with complaints of midsternal chest pain radiating to left shoulder that awoke him from sleep this morning. Patient reports he recently underwent a stress test which was abnormal and a left heart cath is pending. Reports often has chest pain exacerbated with activity and present at rest associated with mild shortness of breath. EKG on arrival to ED today shows sinus arrhythmia with a rate in the 67 without acute ischemic changes noted. Labs as follow: WBC 8.6, hemoglobin 14.3, sodium 140, potassium 3.6, creatinine 1.4, troponin negative. X-ray shows right lung base opacity concerning for pneumonia. Patient continues to have chest pain at rest in the presence of an abnormal stress test, we will proceed with left heart catheterization today. Discussed risk versus benefits with patient he is agreeable. [facility] Disclaimer: The information contained in this section may have been updated after the patient was seen, as this information can be updated by other users. Medical History Cancer GERD (gastroesophageal reflux disease) Hernia Surgical History History of lumpectomy of both breasts History of right hip replacement Family History Other Cancer Hypertension Social History Smoking Status: Never smoker second hand exposure: No alcohol intake: never substance use type: denies use current occupational status: retired Travel in the last 8 weeks: None household members: spouse housing: house lives independently: No marital status: education level: high school service: Yes group home: No current occupational exposures/hazards: No caffeine: Yes special paris needs: No agree to transfusion: No do you feel safe at home: Yes victim of physical abuse: No victim of emotional abuse: No victim of sexual abuse: No would you like helpful sources: No Review of Systems *Cardiovascular Cardiovascular: Reports chest pain at rest and Reports dyspnea *Respiratory Respiratory: Reports dyspnea Exam Data for Last 24 hours Vital signs and Labs for Last 24 Hours: Temp Pulse Resp BP Pulse Ox O2 Del Method 98.1 F 49 L 10 L 127/90 98 Room Air 02/02/23 09:01 02/02/23 10:59 02/02/23 09:30 02/02/23 10:59 02/02/23 10:59 02/02/23 10:59 Laboratory Results - last 24 hr 02/02/23 09:13: WBC 8.6, RBC 4.77, Hgb 14.3, Hct 44.1, MCV 92.4, MCH 30.0, MCHC 32.5, RDW 14.5, Plt Count 205, MPV 8.4, Neut % (Auto) 74.7, Lymph % (Auto) 14.9, Tama % (Auto) 7.0, Eos % (Auto) 3.1, Baso % (Auto) 0.3, Neut # (Auto) 6.4, Lymph # (Auto) 1.3, Tama # (Auto) 0.6, Eos # (Auto) 0.3, Baso # (Auto) 0.0, Sodium 140, Potassium 3.6, Chloride 100, Carbon Dioxide 32 H, Anion Gap 11.6, BUN 21 H, Creatinine 1.40 H, Estimated Creat Clear 53, Estimated GFR 49 L, Est GFR ( Amer) 59, Glucose 95, Calcium 9.8, Total Bilirubin 0.8, AST 28, ALT 21, Alkaline Phosphatase 126, Troponin I < 0.01, Total Protein 7.4, Albumin 4.2, Globulin 3.2, Albumin/Globulin Ratio 1.3 I & O for Last 24 hours: Intake & Output 01/30/23 01/31/23 02/01/23 02/02/23 23:59 23:59 23:59 23:59 Weight 200 lb Meds Home Medications and Allergies Home Medications Medication Instructions Recorded Confirmed Type esomeprazole magnesium 20 mg 20 mg PO DAILY stomach #90 tabs 02/15/22 02/01/23 Rx tablet,delayed release lisinopril 5 mg tablet 5 mg PO DAILY 02/01/23 02/01/23 History New Prescriptions to
--- NOTE | 2023-02-02 11:55 | PC.NURSE ---
Rounded on patient. No needs a this time.
[2023-02-02 12:56] LABS: Troponin I < 0.01 ng/ml (0.00-0.034)
--- NOTE | 2023-02-02 13:08 | PC.NURSE ---
PT to cardiac cath tech via ; family has all belongings.
--- NOTE | 2023-02-02 15:37 | CA_ITS ---
FINAL REPORT CLINICAL HISTORY: Left calf tenderness FINDINGS: Color Doppler, duplex Doppler and compression sonography of the bilateral lower extremities was performed. There is no evidence of deep venous thrombosis from the level of the groin to the calf. The deep veins are patent and compressible. IMPRESSION: No evidence of deep venous thrombosis bilateral lower extremities. Reviewed, Interpreted and Dictated by Bar Bowen III, MD Transcribed by Mary Childs Authenticated and . [facility]
--- NOTE | 2023-02-02 15:37 | CT_ITS ---
PROCEDURE INFORMATION: Exam: CT Chest Without Contrast; Diagnostic Exam date and time: 02/02/2023 4:51 PM Age: 82 years old Clinical indication: Abnormal findings; Abnormal radiologic exam of lung or chest; Prior surgery; Surgery date: Post-operative (0-2 days); Surgery type: Heart cath today. ; Additional info: Abnormal cxr rll pna TECHNIQUE: Imaging protocol: Diagnostic computed tomography of the chest without contrast. Radiation optimization: All CT scans at this facility use at least one of these dose optimization techniques: automated exposure control; mA and/or kV adjustment per patient size (includes targeted exams where dose is matched to clinical indication); or iterative reconstruction. REPORTING DATA: Count of CT and Cardiac NM exams in prior 12 months: This patient has received 0 known CTs and 0 known cardiac nuclear medicine studies in the 12 months prior to the current study. COMPARISON: CR XR CHEST PORTABLE 02/02/2023 9:52 AM FINDINGS: Limitations: The absence of intravenous contrast limits the assessment of vascular structures, lesions and lymphadenopathy. Trachea: Main airways are patent. Lungs: No evidence of airspace opacity or interlobular septal thickening. Airspace opacity in right lower lobe seen on preceding chest radiograph can be attributed to structure overlap including the scapula. Scattered right lower lobe pulmonary granulomas Pleural spaces: No pneumothorax. No pleural effusion. Heart: No cardiomegaly or pericardial effusion. Coronary arteries: No significant coronary artery calcifications. Lymph nodes: Calcified mediastinal and hilar lymph nodes suggest prior granulomatous exposure. Vasculature: The aorta demonstrates mild atherosclerotic calcification. Aorta is nonaneurysmal. The main pulmonary trunk is prominent, which can be seen in the context of pulmonary hypertension. Diaphragm: Hiatal hernia noted. Spleen: Multiple splenic granulomas Kidneys and ureters: Bilateral renal cysts noted. Bones/joints: Multilevel degenerative changes of the included spine. Soft tissues: Unremarkable. IMPRESSION: 1. No evidence of pneumonia or interstitial lung disease. 2. Airspace opacity in right lower lobe seen on preceding chest radiograph can be attributed to structure overlap including the scapula. COMMENTS: Consistent with the [employer] [employer]'s Incidental Findings Committee white paper (J Am Dora Radiol 2018): Any incidental renal lesion less than 1 cm or classified as too small to characterize, or any incidental cystic renal lesion characterized as simple-appearing, is likely benign. No follow-up imaging is recommended for these lesions per consensus recommendations based on imaging criteria.
--- NOTE | 2023-02-02 15:42 | EXP.HP ---
History of Present Illness *Admission Date: 02/02/23 *Reason for visit:: Chief complaint: Shortness of air *History of present illness: This is an 82-year-old male that presents to [facility] emergency department with concerns of shortness of air and chest pain not resolving with home care. His past medical history is significant for osteoarthritis of his hips, gastroesophageal reflux disease with a EGD 2018 and atrial fibrillation on chronic anticoagulation with Eliquis. He describes chronic osteoarthritis of his hips and identified ambulating with his walker becoming increasing short of air with activity over the last 2 months. He went to see his airline stewardess who acquired an echocardiogram in December with an EF of 55% and pericardial fluid. He underwent rhythm evaluation with a monitor identifying atrial fibrillation. He was scheduled for left heart cath. He started experiencing increasing shortness of air and retrosternal chest pain so he presented to the ED for evaluation. In the ED he was saturating appropriately on room air with creatinine of 1.4, stable electrolytes and normal white blood cell count. His troponin was negative x2. A chest x-ray identified a right lower lobe infiltrate. He was taken to the Airways Control Specialist and underwent left heart cath which identified no coronary artery disease. He denies fever, chills, hemoptysis, confusion, falls or acute dyspnea at rest. He reports right greater than left lower extremity edema with some calf pain on the right which he attributes to his left hip osteoarthritis. [facility] Medical History (Updated 02/02/23 @ 16:13 by Juan Carlos Cardoza MD) GERD (gastroesophageal reflux disease) Osteoarthritis of left hip Paroxysmal A-fib Surgical History (Updated 02/02/23 @ 15:50 by Juan Carlos Cardoza MD) History of colonoscopy History of esophagogastroduodenoscopy (EGD) S/P cholecystectomy S/P total right hip arthroplasty Family History (Updated 02/02/23 @ 15:58 by Juan Carlos Cardoza MD) Father Dementia Mother Pneumonia Social History (Updated 02/02/23 @ 15:55 by Juan Carlos Cardoza MD) Smoking Status: Former smoker pack-years: 40 smoking status start date: Age 21 through age 66 years smoked: 46 smoking status stop date: 2007 second hand exposure: No alcohol intake: never substance use type: denies use current occupational status: retired Travel in the last 8 weeks: None household members: spouse housing: house lives independently: No marital status: education level: high school service: Yes snf: No current occupational exposures/hazards: No caffeine: Yes paris/sabianist: Muslim special paris needs: No agree to transfusion: No do you feel safe at home: Yes victim of physical abuse: No victim of emotional abuse: No victim of sexual abuse: No would you like helpful sources: No Review of Systems Review of Systems Review of systems:: pertinent systems reviewed and negative unless documented below Meds Home Medications and Allergies Home Medications Medication Instructions Recorded Confirmed Type esomeprazole magnesium 20 mg 20 mg PO DAILY stomach #90 tabs 02/15/22 02/01/23 Rx tablet,delayed release lisinopril 5 mg tablet 5 mg PO DAILY 02/01/23 02/01/23 History New Prescriptions to Start Prescriptions: Allergies Allergy/AdvReac Type Severity Reaction Status Date / Time No Known Allergies Allergy Verified 02/01/23 14:06 Exam Data for Last 24 hours Vital signs and Labs for Last 24 Hours: Temp Pulse Resp BP Pulse Ox O2 Del Method 98.1 F 48 L 18 126/62 96 Room Air 02/02/23 13:10 02/02/23 15:00 02/02/23 15:00 02/02/23 15:00 02/02/23 15:00 02/02/23 13:10 Laboratory Results - last 24 hr 02/02/23 09:13: WBC 8.6, RBC 4.77, Hgb 14.3, Hct 44.1, MCV 92.4, MCH 30.0, MCHC 32.5, RDW 14.5, Plt Count 205, MPV 8.4, Neut % (Auto) 74.7, Lymph % (Auto
[2023-02-02 17:24] LABS: Coronavirus 19, PCR Not Detected (NotDetected); Influenza A, PCR Not Detected (NotDetected); Influenza B, PCR Not Detected (NotDetected)
--- NOTE | 2023-02-02 18:49 | ECG_ITS ---
APPROVED REPORT Exam: Resting ECG HR:50 bpm ECG Measurements Heart Rate 50 AXES AZ 157 P 61 QRSd 103 QRS 78 QT 443 T 52 QTc 417 Conclusion SINUS BRADYCARDIA WITH SINUS ARRHYTHMIA BORDERLINE ECG UNCONFIRMED REPORT Electronically signed by : Kishore Pham MD 02/03/2023 15:57:33
--- NOTE | 2023-02-02 19:11 | PC.NURSE ---
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 Patient's vital signs stable.
[2023-02-03] VITALS: BP 126/77; PULSE 60; PULSE 86; RESP 20; TEMP 37; O2SAT 93
[2023-02-03 04:00] VITALS: BP 118/57; PULSE 70; PULSE 73; RESP 20; TEMP 36.9; O2SAT 96; BMI 29.0
--- NOTE | 2023-02-03 04:04 | PC.NURSE ---
patient slept well through the night. put 2L nc on patient for sats dropping down in the 80's when he would sleep. IV fluids infusing. patient had good uop this shift. no complaints of pain in the wrist from heart cath procedure. dressing c/d/i. 2+ pulse present.
[2023-02-03 06:40] VITALS: PULSE 54; PULSE 58; O2SAT 97
[2023-02-03 06:50] LABS: Eosinophils # 0.1 K/mm3 (0.0-0.4); Mean Corpuscular HGB Conc 31.9 g/dL (31.8-35.4); Mean Corpuscular Volume 93.3 fl (80-94); Monocytes # 0.5 K/mm3 (0.1-1.0); Monocytes % 8.8 % (1.7-9.3); Red Cell Distribution Width 14.6 % (11.5-17.5)
[2023-02-03 06:59] LABS: INR 1.04 (0.9-1.1); Prothrombin Time 11.2 seconds (10.1-12.5)
[2023-02-03 07:01] LABS: Anion Gap 9.7 mEq/L (5-15); Blood Urea Nitrogen 17 mg/dl (9-20); Calcium 8.8 mg/dl (8.4-10.2); Carbon Dioxide 29 mmol/L (22.0-30.0); Chloride 104 mmol/L (98-107); Creatinine Clearance Estimated 63 mL/min (50-200); Estimated Glomerular Filt Rate 58 ml/min (>60); GFR (African American) 70 ML/MIN (>60); Glucose 99 mg/dl (74-100); Magnesium 1.9 mg/dl (1.6-2.3); Potassium 3.7 mmoL/L (3.5-5.1); Sodium 139 mmol/L (136-145)
[2023-02-03 07:05] LABS: Basophils % 0.4 % (0.1-2.0); Eosinophils % 1.6 % (0.1-12.0); Hematocrit 39.4 % (42.0-52.0); Hemoglobin 12.6 g/dL (14.1-18.0); Lymphocytes # 0.9 K/mm3 (0.7-4.5); Lymphocytes % 16.7 % (10-50); Mean Corpuscular Hemoglobin 29.7 pg (27.0-31.2); Mean Platelet Volume 8.4 fl (7.4-10.4); Neutrophils # 3.9 K/mm3 (1.8-7.8); Neutrophils % 72.4 % (37.0-80.0); Platelet Count 158 K/mm3 (142-424); Red Blood Count 4.23 M/mm3 (4.60-6.20); White Blood Count 5.4 K/mm3 (4.8-10.8)
[2023-02-03 07:16] LABS: Procalcitonin 0.056 ng/mL (0.0-2.0)
[2023-02-03 08:00] VITALS: BP 134/57; PULSE 70; PULSE 95; RESP 18; TEMP 36.6; O2SAT 97
--- NOTE | 2023-02-03 08:02 | EXP.DC.SUM ---
General Admission date:: 02/02/23 Discharge date: 02/03/23 HPI HPI HPI: This is an 82-year-old male that presents to [facility] emergency department with concerns of shortness of air and chest pain not resolving with home care. His past medical history is significant for osteoarthritis of his hips, gastroesophageal reflux disease with a EGD 2017 and atrial fibrillation on chronic anticoagulation with Eliquis. He describes chronic osteoarthritis of his hips and identified ambulating with his walker becoming increasing short of air with activity over the last 2 months. He went to see his side laster who acquired an echocardiogram in December with an EF of 55% and pericardial fluid. He underwent rhythm evaluation with a monitor identifying atrial fibrillation. He was scheduled for left heart cath. He started experiencing increasing shortness of air and retrosternal chest pain so he presented to the ED for evaluation. In the ED he was saturating appropriately on room air with creatinine of 1.4, stable electrolytes and normal white blood cell count. His troponin was negative x2. A chest x-ray identified a right lower lobe infiltrate. He was taken to the Broker Assistant and underwent left heart cath which identified no coronary artery disease. He denies fever, chills, hemoptysis, confusion, falls or acute dyspnea at rest. He reports right greater than left lower extremity edema with some calf pain on the right which he attributes to his left hip osteoarthritis. Hospital Course Hospital Course Hospital Course: Patient was admitted post heart cath to the telemetry unit with routine lab and inflammatory marker evaluation. Imaging was acquired for his concerns. Problems addressed as follows: Unstable angina Telemetry monitoring Left heart cath 02/02/2023 with normal coronaries Outpatient cardiology evaluation noted Echocardiogram (December 2022) with EF 55% and small amount of pericardial fluid Holter monitor with atrial fibrillation Paroxysmal atrial fibrillation Outpatient cardiology evaluation noted Currently rate controlled Cardiac event monitor reviewed Eliquis 2.5 mg p.o. twice daily (age and creatinine) Right lower lobe pneumonia Resolved Pulse oximetry monitoring Oxygen therapy to maintain appropriate oxygen saturations Currently oxygenating appropriately on room air Chronic tobacco use history noted 1 pack/day for > [address] chest without secondary to contrast load on today's [facility] with no right lower lobe pneumonia IV fluid resuscitation Trending labs and inflammatory markers Respiratory PCR Carmella/Jack inhalation therapy ICS therapy Lower extremity venous Dopplers with no DVT Gastroesophageal reflux disease EGD 2018 Hiatal hernia identified on CT of chest No aspiration/dysphagia/odynophagia reported PPI therapy Osteoarthritis left hip Fall precautions PT/OT evaluations Outpatient follow-up with orthopedics The patient identified improvement and was reassured by his imaging studies. His laboratory studies identified stability. He identified improvement and inquired about discharge home. He will be discharged home to follow-up with his orthopedic and cardiology teams. I have recommended a PCP follow-up in 1 week. I spent 35 minutes in [id number] time with the patient and nursing staff concerning the discharge process. We discussed the admitting diagnoses and hospital course. We discussed identified improvement and the patient's desire to be discharged. We reviewed inpatient studies and imaging. The patient voiced understanding on the importance of follow-up with his primary care provider and specialist(s). The patient plans to be compliant with the medication regimen prescribed and follow-up appointments. He understands that he can return to the emergency department with any sudden changes or concerns. Exam Data for Last 24 hours Vital signs and Labs for Last 24 Hours: Temp Pulse Resp BP Pulse Ox O2 Del
--- NOTE | 2023-02-03 09:04 | EXP.CARD.PN ---
Subjective Subjective Date: 02/03/23 Time: 08:00 Principal diagnosis: unstable angina Interval history: Patient status post left heart catheterization with no stenting. Patient reports feeling good this morning denies chest pain or shortness of breath. Labs reviewed. requesting to go home Exam Data for Last 24 hours Vital signs and Labs for Last 24 Hours: Temp Pulse Resp BP Pulse Ox O2 Del Method O2 Flow Rate 98 F 95 H 18 134/57 L 97 Room Air 2 02/03/23 08:00 02/03/23 08:00 02/03/23 08:00 02/03/23 08:00 02/03/23 08:00 02/03/23 08:04 02/03/23 08:00 Laboratory Results - last 24 hr 02/02/23 09:13: WBC 8.6, RBC 4.77, Hgb 14.3, Hct 44.1, MCV 92.4, MCH 30.0, MCHC 32.5, RDW 14.5, Plt Count 205, MPV 8.4, Neut % (Auto) 74.7, Lymph % (Auto) 14.9, Kay % (Auto) 7.0, Eos % (Auto) 3.1, Baso % (Auto) 0.3, Neut # (Auto) 6.4, Lymph # (Auto) 1.3, Kay # (Auto) 0.6, Eos # (Auto) 0.3, Baso # (Auto) 0.0, Sodium 140, Potassium 3.6, Chloride 100, Carbon Dioxide 32 H, Anion Gap 11.6, BUN 21 H, Creatinine 1.40 H, Estimated Creat Clear 53, Estimated GFR 49 L, Est GFR ( Amer) 59, Glucose 95, Calcium 9.8, Total Bilirubin 0.8, AST 28, ALT 21, Alkaline Phosphatase 126, Troponin I < 0.01, Total Protein 7.4, Albumin 4.2, Globulin 3.2, Albumin/Globulin Ratio 1.3 02/02/23 12:09: Troponin I < 0.01 02/02/23 17:18: SARS-CoV-2 (PCR) Not detected, Influenza A Untype (PCR) Not detected, Influenza Type B (PCR) Not detected 02/03/23 06:25: WBC 5.4 D, RBC 4.23 L, Hgb 12.6 L D, Hct 39.4 L, MCV 93.3, MCH 29.7, MCHC 31.9, RDW 14.6, Plt Count 158, MPV 8.4, Neut % (Auto) 72.4, Lymph % (Auto) 16.7, Kay % (Auto) 8.8, Eos % (Auto) 1.6, Baso % (Auto) 0.4, Neut # (Auto) 3.9, Lymph # (Auto) 0.9, Kay # (Auto) 0.5, Eos # (Auto) 0.1, Baso # (Auto) 0.0, PT 11.2, INR 1.04, Sodium 139, Potassium 3.7, Chloride 104, Carbon Dioxide 29, Anion Gap 9.7, BUN 17, Creatinine 1.20, Estimated Creat Clear 63, Estimated GFR 58 L, Est GFR ( Amer) 70, Glucose 99, Calcium 8.8, Magnesium 1.9, Procalcitonin 0.056 I & O for Last 24 hours: Intake & Output 01/31/23 02/01/23 02/02/23 02/03/23 23:59 23:59 23:59 23:59 Intake Total 2748 / 2748 Output Total 850 / 1150 550 / 550 Balance -850 / -450 2198 / 2198 Weight 200 lb 203 lb 3 oz Constitutional Constitutional: no acute distress *Routine Respiratory Exam Respiratory: Present CTA bilaterally and symmetric chest movement *Routine Cardiovascular Exam Cardiovascular: Present RRR, Normal S1 and Normal S2 *Routine Abdominal Exam Abdominal: Present soft and normoactive bowel sounds; Absent tenderness *Routine Extremities Exam Extremities: Present full ROM and normal capillary refill; Absent edema Comments: Right radial access point-no bleeding, bruising, swelling noted *Routine Skin Exam Skin: Present intact, dry and warm Detailed Neck Exam: Thyroids Thyroid: Absent bruit Progress Note: A&P Assessment and plan (1) Angina pectoris, unstable: Status: Acute (2) Paroxysmal A-fib: Status: Acute (3) Pneumonia: Status: Acute (4) Osteoarthritis of left hip: Status: Acute (5) Chronic left hip pain: Status: Acute (6) GERD (gastroesophageal reflux disease): Status: Acute Assessment and Plan Assessment and Plan for All Diagnoses:: Unstable angina CCS score 3 Paroxysmal atrial fibrillation Chadsvasc score 3 Bradycardia -Abnormal stress test noted -EKG is on his arrhythmia rate in the 60s -Continue to wear cardiac event monitor to assess A-fib burden -Patient has been holding Eliquis in anticipation hip surgery -Serial troponins negative -Given unstable angina in the presence of an abnormal stress test we will proceed with left heart catheterization today. Discussed risk versus benefits with patient and he is agreeable. 02/03/2023: Left heart catheterization yesterday showed normal coronaries and a normal ejection fraction. Elevated LVEDP consistent with diastolic dysfunction
--- NOTE | 2023-02-03 10:06 | HMH.PTEV ---
Physical Therapy Evaluation Rehab PT IP Evaluation Start: 02/03/23 08:10 Freq: ONCE Status: Active Protocol: Document 02/03/23 10:04 JASON (Rec: 02/03/23 10:06 JASON [id number]) Subjective/History History History 82 yowm adm to [facility] with angina . He reports he lives with his spouse, no steps to enter the home, and he uses a RW for all mobility. He has hx of L hip OA and is awaiting PROMISE surgery. Subjective Subjective Pt c/o baseline L hip pain this am, otherwise no c/o. New diagnosis of cancer in past 12 No months? Rehab PT IP Eval Objective Appearance Patient Behavior Appropriate Patient Orientation Person,Place,Time Difficulty following instructions none Speech Pattern Clear Ambulation Patient Able to Ambulate Yes Ambulation Observation IP General Gait Pattern Observation Antalgic Gait Ambulation Distance (feet) 20 Ambulation Assistive Device Rolling Walker Ambulation Ability Supervision/Stand by Balance Ability to Arise Able, uses arms to help Sitting Balance Steady, safe Standing Balance Steady, wide stance Dynamic Sitting Balance Ability Good Dynamic Standing Balance Ability Fair Transfers Bed Transfer Ability Supervision/Stand by Chair Transfer Ability Supervision/Stand by Sit to Stand Bed Transfer Ability Supervision/Stand by Sit to Stand Chair Transfer Ability Supervision/Stand by Rehab PT IP prob,goals,plan Problems Date of Evaluation: 02/03/23 Discharge Plan PT Discharge Plan Pt is appropriate to return home once medically stable for d/c. Eval Complexity Eval Charge Codes 66317 - High Complexity PHYSICIAN CERTIFICATION: I certify the specified therapy services for Sidney Lantigua are required, authorized, and reviewed every 30 days.
--- NOTE | 2023-02-03 10:22 | HMH.OTEV ---
OT Inpatient Evaluation Rehab OT IP Evaluation Start: 02/03/23 08:10 Freq: ONCE Status: Active Protocol: Document 02/03/23 10:14 KATIANA (Rec: 02/03/23 10:22 KATIANA [id number]) Rehab OT IP Assessment Subjective History This is an 82-year-old male that presents to [facility] emergency department with concerns of shortness of air and chest pain not resolving with home care. His past medical history is significant for osteoarthritis of his hips, gastroesophageal reflux disease with a EGD 2017 and atrial fibrillation on chronic anticoagulation with Eliquis. He describes chronic osteoarthritis of his hips and identified ambulating with his walker becoming increasing short of air with activity over the last 2 months. He went to see his political advisor who acquired an echocardiogram in December with an EF of 55% and pericardial fluid. He underwent rhythm evaluation with a monitor identifying atrial fibrillation. He was scheduled for left heart cath. He started experiencing increasing shortness of air and retrosternal chest pain so he presented to the ED for evaluation. In the ED he was saturating appropriately on room air with creatinine of 1. 4, stable electrolytes and normal white blood cell count. His troponin was negative x2 . A chest x-ray identified a right lower lobe infiltrate. He was taken to the Production Control Specialist and underwent left heart cath which identified no coronary artery disease. He denies fever, chills, hemoptysis, confusion, falls or acute dyspnea at rest. He reports
[2023-02-06 13:03] LABS: MRSA DNA PCR Negative
--- NOTE | 2023-02-06 15:07 | CARE MANAGER ---
Spoke with patient for post-discharge phone interview, patient states that his insurance co-pay for Elliquis is $80 and he cannot afford that. This senior sales operations manager called to cardiology and spoke with Mary Castaneda RN and she states that she will talk to the patient and MD about medications.
== END 2023-02-03 10:16 | disposition home or self-care (01) ==
LOC: ER 11:19 → CATHLAB 13:11 → 2ND 13:34
PROVIDERS: Internal Medicine; Admitting Provider Family Medicine; Emergency Provider Emergency Medicine; PCP Family Medicine; Visit Provider Family Medicine
DX: I20.0 Unstable angina (principal); I48.0 Paroxysmal atrial fibrillation; R00.1 Bradycardia, unspecified; R94.30 Abnormal result of cardiovascular function study, unspecified; R94.31 Abnormal electrocardiogram [ECG] [EKG]; Z01.810 Encounter for preprocedural cardiovascular examination; J18.9 Pneumonia, unspecified organism; M16.12 Unilateral primary osteoarthritis, left hip; M25.552 Pain in left hip; G89.29 Other chronic pain; K21.9 Gastro-esophageal reflux disease without esophagitis; Z96.642 Presence of left artificial hip joint
CPT/HCPCS: 36415; 71045; 71250; 80048; 80053; 83735; 84145; 84484; 85025; 85610; 87636; 87641; 93005; 93458; 93970; 94640; 97163; 97165; 99152; 99291; C1725; C1769; G0378; J0696; J1644; Q9967

== ENCOUNTER 2023-09-30 11:09 | Emergency (ER) | payer MEDICARE, SELFPAY ==
[2023-09-30 11:35] VITALS: BP 139/62; PULSE 96; RESP 18; TEMP 36.7; O2SAT 98; BMI 29.2
--- NOTE | 2023-09-30 12:12 | EXP.UTC ---
Discharge Plan Disposition Patient Disposition: Home, Self-Care Condition: Good Prescriptions Prescriptions: New fluticasone propionate [Flonase Allergy Relief] 50 mcg/actuation spray,suspension 1 spray intranasal DAILY Qty: 16 0RF Rx Instructions: administer into each nostril daily dextromethorphan polistirex [Delsym 12 hour] 30 mg/5 mL suspension,extended rel 12 hr 10 ml PO Q12H PRN (Reason: cough) Qty: 89 0RF No Action lisinopril 5 mg tablet 5 mg PO DAILY pantoprazole 40 mg Tablet,Delayed Release (Dr/Ec) 40 mg PO DAILY Qty: 30 0RF lisinopril-hydrochlorothiazide 20-12.5 mg tablet 1 tab PO DAILY Patient Comments: TAKE 1 TABLET BY MOUTH ONCE DAILY azithromycin 250 mg tablet See Rx Instructions .ROUTE .COMPLEX Patient Comments: TAKE 2 TABLETS BY MOUTH ON DAY 1, AND THEN TAKE 1 TABLET BY MOUTH ONCE A DAY ON DAY 2 THROUGH DAY 5 Rx Instructions: . benzonatate 200 mg capsule 200 mg PO DAILY Patient Comments: TAKE 1 CAPSULE BY MOUTH THREE TIMES DAILY meloxicam 15 mg tablet 15 mg PO DAILY Patient Comments: TAKE 1 TABLET BY MOUTH ONCE DAILY Referrals Follow up/Referrals: Jessica Peralta MD [Primary Care Provider] - See instructions Activity Restrictions/Add. Instructions Additional Instructions/Restrictions: Continue taking azithromycin as prescribed and make sure to finish medication You was prescribed a differnet cough medication try it and see if it helps you more Follow up with your Family Doctor if no improvement or any worsening of symptoms Clinical Impressions Clinical Impression: Sinusitis Qualifiers: Sinusitis location: unspecified location Chronicity: unspecified Qualified Code(s): J32.9 - Chronic sinusitis, unspecified Instructions Patient Instructions: Sinusitis, DI for Sinusitis Discharge ED Provider: Amy Ny [facility] General Stated complaint: cough, chest congestion Mode of Arrival: Ambulatory Source of Information: Patient Limitations: No Limitations Time Seen by Provider: 09/30/23 12:18 Description of Symptoms (Recalled from Triage Doc. by RN): PATIENT C/O COUGH, CONGESTION, RUNNY NOSE AND SOA X 2 WEEKS HEENT Symptoms (Recalled from RN notes): Yes Resp Symptoms (Recalled from RN notes): Yes Skin Symptoms (Recalled from RN notes): No MS Symptoms (Recalled from RN notes): No Functional Status (Recalled from RN notes): WNL History of Present Illness Provider Complaint: Patient states that he has been sick for 2 weeks with sinus congestion and pressure, cough, chest congestion but not coughing anything up States that he has seen his PCP twice and they put him on one antibiotic but he stopped taking it because he didnt feel like it was working and then they give him another one but he doesnt feel like it is working either so today he came in to get checked again Related Data Home Medications Medication Instructions Recorded Confirmed lisinopril 5 mg tablet 5 mg PO DAILY Hypertension 02/01/23 09/30/23 azithromycin 250 mg tablet See Rx Instructions .Route .COMPLEX 09/30/23 09/30/23 benzonatate 200 mg capsule 200 mg PO DAILY 09/30/23 09/30/23 lisinopril 20 1 tab PO DAILY 09/30/23 09/30/23 mg-hydrochlorothiazide 12.5 mg tablet meloxicam 15 mg tablet 15 mg PO DAILY 09/30/23 09/30/23 Previous Rx's Medication Instructions Recorded pantoprazole 40 mg tablet,delayed 40 mg PO DAILY #30 tabs 02/03/23 release dextromethorphan polistirex 30 10 ml PO Q12H PRN cough #89 mL 09/30/23 mg/5 mL oral susp ext.release 12hr (Delsym 12 hour) fluticasone propionate 50 1 spray intranasal DAILY #16 grams 09/30/23 mcg/actuation nasal spray,suspension (Flonase Allergy Relief) Allergies Allergy/AdvReac Type Severity Reaction Status Date / Time No Known Allergies Allergy Verified 03/16/23 11:41 Worker's Comp Is this a Worker's Comp case?: No [facility] Disclaimer: The information contained in this section may have been updated after the patient was seen, as this information can be updated by other users. Medical History (Updated 09/30/23 @ 13:40 by Amy Ny APRN) Paroxysmal A-fib Osteoarthritis of left hip GERD (gastroesophageal reflux disease) Surgical History (Updated 09/30/23 @ 12:16 by Mandie Nevarez RN) History of cholecystectomy History of esophagogastroduodenoscopy (EGD) History of colonoscopy S/P total right hip arthroplasty Family History Father , at age 83 from dementia complications Dementia Mother , at age 83 from pneumonia Pneumonia Social History Smoking Status: Former smoker tobacco type: cigarettes packs per day: 1 smoking status start date: Age 21 through age 66 years smoked: 46 smoking status stop date: 2007 second hand exposure: No alcohol intake: never substance use type: denies use current occupational status: retired Travel in the last 8 weeks: None household members: spouse housing: house lives independently: No marital status: education level: high school service: Yes long-term: No current occupational exposures/hazards: No caffeine: Yes paris/pentecostalism: Catholic special paris needs: No agree to transfusion: No do you feel safe at home: Yes victim of physical abuse: No victim of emotional abuse: No victim of sexual abuse: No would you like helpful sources: No ROS Obtained: Yes All systems reviewed & no additional complaints except as documented and Yes Systems reviewed as appropriate & no additional complaints except as documented Constitutional Constitutional: Reports system reviewed and no additional complaints, except as documented, Reports as per HPI, Reports body ache and Reports headache(s) ENT Ears, Nose, Mouth, and Throat: Reports system reviewed and no additional complaints, except as documented, Reports as per HPI, Reports headache(s), Reports sinus pain and Reports sinus pressure Cardiovascular Cardiovascular: Reports system reviewed and no additional complaints, except as documented and Reports as per HPI Respiratory Respiratory: Reports system reviewed and no additional complaints, except as documented, Reports as per HPI, Denies shortness of breath, Reports chest congestion and Reports cough Gastrointestinal Gastrointestingal: Reports system reviewed and no additional complaints, except as documented and as per HPI Neurologic Neurologic: Reports headache(s) Physical Exam General General appearance: alert and in no apparent distress ENT ENT exam: Present mucous membranes moist Expanded ENT Exam Nose exam: Present sinus tenderness Throat exam: Present other (Pharyngeal erythema noted with PND) Respiratory Respiratory exam: Present normal lung sounds bilaterally; Absent respiratory distress or wheezes Cardiovascular Cardiovascular exam: Present regular rate, normal rhythm and normal heart sounds Neurological Exam Neurological exam: Present alert, oriented X3 and normal gait Medical Decision Making Georges Inquiry Pt receiving controlled substance: No Georges was queried for this patient: No Vital Signs: 09/30/23 11:35 Temperature 98.0 F Temperature Source Oral Pulse Rate [Left Brachial] 96 H Respiratory Rate 18 Blood Pressure [Left Arm] 139/62 Blood Pressure Mean [Left Arm] 87 Blood Pressure Source [Left Arm] Automatic Cuff Blood Pressure Position [Left Arm] Sitting 02 Sat by Pulse Oximetry 98 Oxygen Delivery Method Room Air Radiology Data #1: Image(s): Chest Image Reviewed: Yes I have reviewed radiologist's interpretation IMPRESSION: No acute findings. Medical Decision Narrative: Medication discussed with pharmacy, patient stopped taking Cefdnir prior to starting azithromycin therefore will give injection of Rocephin and give patient some delsym to see if that helps more with cough
--- NOTE | 2023-09-30 12:18 | XR_ITS ---
PROCEDURE INFORMATION: Exam: XR Chest Exam date and time: 09/30/2023 12:15 PM Age: 83 years old Clinical indication: Cough; Additional info: Cough/congestion TECHNIQUE: Imaging protocol: Radiologic exam of the chest. Views: 2 views. COMPARISON: CT CHEST WO CON 02/02/2023 4:51 PM FINDINGS: Lungs: Unremarkable. No consolidation. Pleural spaces: Unremarkable. No pleural effusion. No pneumothorax. Heart/Mediastinum: Aortic atherosclerosis. No cardiomegaly. Bones/joints: No acute fracture. Moderate bilateral glenohumeral degenerative joint disease. 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 IMPRESSION: No acute findings.
[2023-09-30] MEDS: cefTRIAXone 1GM VIAL 1 GM IM (13:46)
[2023-09-30] MEDS: LIDOCAINE 1% 5ML PF VIAL IM (13:46)
[2023-09-30 13:53] VITALS: BP 139/62; PULSE 96; RESP 18; TEMP 36.7; O2SAT 98
== END 2023-09-30 13:56 | disposition home or self-care (01) ==
PROVIDERS: Emergency Provider Nurse Practitioner; PCP Family Medicine
DX: J01.90 Acute sinusitis, unspecified (principal); R05.9 Cough, unspecified; R09.81 Nasal congestion
CPT/HCPCS: 71046; 96372; 99204; 99212; G0463; J0696

== ENCOUNTER 2024-01-23 23:19 | Emergency (ER) | payer MEDICARE, SELFPAY ==
[2024-01-23 23:20] VITALS: BP 164/67; PULSE 91; RESP 18; TEMP 36.9; O2SAT 95; BMI 27.8
[2024-01-23 23:39] VITALS: BP 158/76; PULSE 89; RESP 18; TEMP 36.9; O2SAT 96
[2024-01-23] MEDS: TET/DIPHTH/PERT-ADULT 0.5ML SYRINGE 0.5 ML IM (23:47)
--- NOTE | 2024-01-23 23:47 | HMH.EDGENADL ---
Discharge Plan Disposition Patient Disposition: Home, Self-Care Prescriptions Prescriptions: No Action lisinopril 5 mg tablet 5 mg PO DAILY pantoprazole 40 mg Tablet,Delayed Release (Dr/Ec) 40 mg PO DAILY Qty: 30 0RF lisinopril-hydrochlorothiazide 20-12.5 mg tablet 1 tab PO DAILY Patient Comments: TAKE 1 TABLET BY MOUTH ONCE DAILY azithromycin 250 mg tablet See Rx Instructions .ROUTE .COMPLEX Patient Comments: TAKE 2 TABLETS BY MOUTH ON DAY 1, AND THEN TAKE 1 TABLET BY MOUTH ONCE A DAY ON DAY 2 THROUGH DAY 5 Rx Instructions: . benzonatate 200 mg capsule 200 mg PO DAILY Patient Comments: TAKE 1 CAPSULE BY MOUTH THREE TIMES DAILY meloxicam 15 mg tablet 15 mg PO DAILY Patient Comments: TAKE 1 TABLET BY MOUTH ONCE DAILY fluticasone propionate [Flonase Allergy Relief] 50 mcg/actuation spray,suspension 1 spray intranasal DAILY Qty: 16 0RF Rx Instructions: administer into each nostril daily dextromethorphan polistirex [Delsym 12 hour] 30 mg/5 mL suspension,extended rel 12 hr 10 ml PO Q12H PRN (Reason: cough) Qty: 89 0RF Referrals Follow up/Referrals: Jessica Peralta MD [Primary Care Provider] - See instructions Activity Restrictions/Add. Instructions Additional Instructions/Restrictions: Absorbable sutures were placed, they should absorb over the next week. Keep wound clean and dry and covered. Please wash it at least once a day with soap and water, do not scrub as it can dislodge the sutures. Monitor for signs of infection. Clinical Impressions Clinical Impression: Finger laceration Qualifiers: Encounter type: initial encounter Finger: middle finger Damage to nail status: without damage Foreign body presence: without foreign body Laterality: right Qualified Code(s): S61.212A - Laceration without foreign body of right middle finger without damage to nail, initial encounter Instructions Patient Instructions: DI for Laceration Repair Print Language Print Language: Stateless Discharge ED Provider: Pritesh Sommer Adult HPI General Chief complaint: Wound/Laceration Stated complaint: laceration r middle finger Time Seen by Provider: 01/23/24 23:20 Mode of Arrival: Ambulatory Source of Information: Patient Limitations: No Limitations Description of Symptoms (Recalled from ER Triage Doc. by RN): Pt ambulatory to ED with a laceration to his 2nd right digit. Pt reports he cut it while opening a can of peaches approx 1.5 hours ago, and it won't stop bleeding. Pt states he used to be on eliquis but is not anymore. History of Present Illness HPI narrative: 83-year-old male with history of hypertension presents for laceration. He reports that he cut his right middle finger tip while opening a can of peaches. Reports that it will not stop bleeding. He was previously on Eliquis but has not been on it for a while. Denies any other injuries. Related Data Home Medications ?Medication ?Instructions ?Recorded ?Confirmed lisinopril 5 mg tablet 5 mg PO DAILY Hypertension 02/01/23 09/30/23 azithromycin 250 mg tablet See Rx Instructions .Route .COMPLEX 09/30/23 09/30/23 benzonatate 200 mg capsule 200 mg PO DAILY 09/30/23 09/30/23 lisinopril 20 1 tab PO DAILY 09/30/23 09/30/23 mg-hydrochlorothiazide 12.5 mg tablet meloxicam 15 mg tablet 15 mg PO DAILY 09/30/23 09/30/23 Previous Rx's ?Medication ?Instructions ?Recorded pantoprazole 40 mg tablet,delayed 40 mg PO DAILY #30 tabs 02/03/23 release dextromethorphan polistirex 30 10 ml PO Q12H PRN cough #89 mL 09/30/23 mg/5 mL oral susp ext.release 12hr (Delsym 12 hour) fluticasone propionate 50 1 spray intranasal DAILY #16 grams 09/30/23 mcg/actuation nasal spray,suspension (Flonase Allergy Relief) Allergies Allergy/AdvReac Type Severity Reaction Status Date / Time No Known Allergies Allergy Verified 03/16/23 11:41 [facility] Disclaimer: The information contained in this section may have been updated after the patient was seen, as this information can be updated by other users. Medical History (Updated 01/23/24 @ 23:48 by Pritesh Sommer MD) Paroxysmal A-fib Osteoarthritis of left hip GERD (gastroesophageal reflux disease) Surgical History (Updated 09/30/23 @ 12:16 by Mandie Nevarez RN) History of cholecystectomy History of esophagogastroduodenoscopy (EGD) History of colonoscopy S/P total right hip arthroplasty Family History Father , at age 83 from dementia complications Dementia Mother , at age 83 from pneumonia Pneumonia Social History Smoking Status: Former smoker tobacco type: cigarettes packs per day: 1 smoking status start date: Age 21 through age 66 years smoked: 45 smoking status stop date: 2007 second hand exposure: No alcohol intake: never substance use type: denies use current occupational status: retired Travel in the last 8 weeks: None household members: spouse housing: house lives independently: No marital status: education level: high school service: Yes halfway: No current occupational exposures/hazards: No caffeine: Yes paris/roman catholic: Yarsani special paris needs: No agree to transfusion: No do you feel safe at home: Yes victim of physical abuse: No victim of emotional abuse: No victim of sexual abuse: No would you like helpful sources: No ROS Obtained: Yes All systems reviewed & no additional complaints except as documented Physical Exam General General appearance: alert and in no apparent distress Head Head exam: atraumatic and normocephalic Eye Eye exam: Present normal appearance, PERRL and EOMI ENT ENT exam: Present normal oropharynx and normal external ear exam Neck Neck exam: Present normal inspection and full ROM Chest Chest inspection: Present normal inspection and symmetric chest wall rise; Absent tenderness Respiratory Respiratory exam: Present normal lung sounds bilaterally; Absent respiratory distress Cardiovascular Cardiovascular exam: Present regular rate and normal rhythm Abdominal Exam Abdominal exam: Present soft; Absent distention, tenderness or guarding Extremities Exam Extremities exam: Present other (L-shaped laceration to the distal pad of the right third digit. Approximately 1.5 cm in total length. Mild oozing noted. No foreign body noted on exam, no exposed bone, nail intact); Absent edema or joint swelling Back Exam Back exam: Present normal inspection; Absent tenderness Neurological Exam Neurological exam: Present alert and oriented X3; Absent motor sensory deficit Psychiatric Psychiatric exam: Present normal affect and normal mood Skin Skin exam: Present warm, dry and normal color Lymphatic Lymphatic Findings: no adenopathy Medical Decision Making Medical Records Medical records reviewed: Yes I reviewed the patient's medical records. Georges Inquiry Pt receiving controlled substance: No Georges was queried for this patient: No Vital Signs: 01/23/24 23:20 01/23/24 23:39 Temperature 98.4 F 98.4 F Temperature Source Oral Oral Pulse Rate 89 Pulse Rate [Left Radial] 91 H Respiratory Rate 18 18 Blood Pressure 158/76 H Blood Pressure [Right Arm] 164/67 H Blood Pressure Mean [Right Arm] 99 Blood Pressure Source Automatic Cuff Blood Pressure Source [Right Arm] Automatic Cuff Blood Pressure Position Sitting Blood Pressure Position [Right Arm] Sitting 02 Sat by Pulse Oximetry 95 Oxygen Delivery Method Room Air Room Air Lab Data Lab results reviewed: Yes I reviewed the patient's lab results. Orders (Tests/Meds): ED MEDICATIONS Discontinued Medications Generic Name Dose Route Start Last Admin Trade Name Freq PRN Reason Stop Dose Admin Tetanus/Reduced Diphtheria/Acell Pertussis 0.5 ml 01/23/24 23:43 01/23/24 23:47 Tet/Diphth/Pert-Adult 0.5ml Syringe IM 01/23/24 23:44 0.5 ml .ONCE ONE Administration Medical Decision Narrative: 83-year-old male with history of hypertension, not on blood thinners presents for finger laceration.. History was obtained via interactive discussion with patient, family. On arrival, patient is [afebrile, hemodynamically stable, satting appropriately, alert, oriented x4, GCS 15], moving all extremities spontaneously. Full physical exam performed and significant for finger laceration as documented above. Differential includes but is not limited to laceration, foreign body, open fracture, ligamentous/tendon injury, nailbed injury. Patient was given injected lidocaine and Tdap for symptomatic management and correction of underlying abnormalities. Laceration was repaired by me using three 5-0 fast gut sutures. Pressure dressing was placed and instructions were given regarding wound care. Patient discharged in stable condition with return precautions. Radiograph was considered but deemed unnecessary given history and exam. Procedures Risk/Benefits of Procedure(s) Were Explained: Yes Laceration Laceration 1: Site: finger (Third digit, distal pad) Side (If applicable): right Size (cm): 1.5 Description: flap (L-shaped) Depth: involves subcutaneous layer Local Anesthetic: lidocaine 1% Amount of anesthesia used (mL): 3 Pre-repair: wound explored, irrigated extensively and deep structures intact Skin layer closed with: other (Fast gut) Size (cm): 5-0 Number of sutures: 3 Technique: simple, interrupted Critical Care Critical Care Time Critical Care Time: No
== END 2024-01-23 23:58 | disposition home or self-care (01) ==
PROVIDERS: Emergency Provider Emergency Medicine; PCP Family Medicine
DX: S61.212A Laceration without foreign body of right middle finger without damage to nail, initial encounter (principal); I10 Essential (primary) hypertension; I48.0 Paroxysmal atrial fibrillation; K21.9 Gastro-esophageal reflux disease without esophagitis; Z87.891 Personal history of nicotine dependence; W26.8XXA Contact with other sharp object(s), not elsewhere classified, initial encounter
CPT/HCPCS: 12001; 90471; 90715; 99283

== ENCOUNTER 2024-12-25 14:20 | Outpatient (CLI) | payer MEDICARE, SELFPAY ==
[2024-12-25 17:50] LABS: Hematocrit 41.1 % (42.0-52.0); Hemoglobin 13.5 g/dL (14.1-18.0); Immature Granulocytes % 0.1 %; Mean Corpuscular HGB Conc 32.8 g/dL (31.8-35.4); Mean Corpuscular Hemoglobin 30.0 pg (27.0-31.2); Mean Corpuscular Volume 91.3 fl (80-94); Nucleated Red Blood Cells % 0 %; Platelet Count 182 K/mm3 (142-424); Red Blood Count 4.50 M/mm3 (4.60-6.20); Red Cell Distribution Width-SD 46.7 fL; White Blood Count 7.4 K/mm3 (4.8-10.8)
[2024-12-25 19:59] LABS: Albumin Level 4.2 g/dl (3.5-5.0); Chloride 98 mmol/L (98-107); Potassium 4.4 mmoL/L (3.5-5.1); Sodium 136 mmol/L (136-145)
[2024-12-25 20:02] LABS: Alanine Aminotransferase 16 U/L (12-78); Albumin/Globulin Ratio 1.5 (1.1-1.8); Alkaline Phosphatase 106 U/L (38-126); Anion Gap 11.4 mEq/L (5-15); Aspartate Amino Transferase 28 U/L (17-59); Bilirubin,Total 0.6 mg/dl (0.2-1.3); Blood Urea Nitrogen 23 mg/dl (9-20); Calcium 9.8 mg/dl (8.4-10.2); Carbon Dioxide 31 mmol/L (22.0-30.0); Cholesterol 157 mg/dl (140-200); Creatinine,Serum 1.30 mg/dl (0.66-1.25); Estimated Glomerular Filt Rate 53 ml/min (>60); GFR (African American) 64 ML/MIN (>60); Globulin 2.8 g/dL (1.3-3.2); Glucose 74 mg/dl (74-100); Total Protein,Serum 7.0 g/dl (6.3-8.2); Triglycerides 105 mg/dl (30-150)
[2024-12-25 20:03] LABS: HDL Cholesterol 63 mg/dl (40-60)
[2024-12-25 20:48] LABS: Hepatitis C Ab Qual. W/ RFX NEGATIVE (Negative)
[2024-12-25 21:43] LABS: Hemoglobin A1C 5.3 % (4.0-6.0)
--- OUTSIDE RECORDS SUMMARY | 2024-12-26 11:09 | XMS_ITS | Clinical Summary ---
Author Organization [facility] Address [address] [place] [address] Care Team Providers Care Zone Manager Name Role Phone Quinten Peralta MD Primary Care Provider [phone] Allergies No known active allergies Medications esomeprazole (nexIUM) 20 MG capsule Take 1 capsule by mouth Every Morning Before Breakfast. Active apixaban (ELIQUIS) 5 MG tablet tabletIndications :New onset atrial fibrillation Take 1 tablet by mouth 2 (Two) Times a Day. 60 tablet 6 3 Active amLODIPine (NORVASC) 5 MG tabletIndications :Abnormal nuclear stress test,Essential hypertension Take 1 tablet by mouth Daily. 30 tablet 3 3 Active Active Problems Problem Noted Date Diagnosed Date Abnormal nuclear stress test 12/29/2022 Overview (12/29/2022): Added automatically from request for surgery [id number] Family History Medical History Relation Name Comments Emphysema Father Heart attack Maternal Grandfather Cancer Maternal Grandmother Hypertension Mother No Known Problems Paternal Grandfather No Known Problems Paternal Grandmother Relation Name Status Comments Father Maternal Grandfather Maternal Grandmother Mother Paternal Grandfather Paternal Grandmother Social History Tobacco Use Types Packs/Day Years Used Date Smoking Tobacco: Former Cigarettes Q uit: 2005 Passive Smoke Exposure: Past Smokeless Tobacco: Never Tobacco Cessation:Counseling Given: Yes Alcohol Use Standard Drinks/Week Comments Not Currently 0 (1 standard drink = 0.6 oz pur e alcohol) Abuse Screen Answer Date Recorded Unsafe at Home or Work/School Not on file Feels Threatened by Someone? Not on file 04/2023 Does Anyone Keep You from Co ntacting Others or Doint Things Outside the Home? Not on file 03/02/2023 Physical Sign of Abuse Present Not on file 1 Housing Stability Answer Date Recorded Current Living Arrangements Not on file 02/19 Potentially Unsafe Housing Conditions Not on ilene e 03/02/2023 Family and Community Support Answer Jesús e Recorded Help with Day-to-Day Activities Not on file 03/02/2023 Lonely or Isolated Not on file 03/02/2023 Employment Answer Date Recorded Do you want help finding or keeping work or a aleshia b? Not on file 03/02/2023 Disabilities Answer Date Recorded Concentrating, Remembering, or Making Decisions Difficulty Not on file 03/02/2023 Doing Errands Independently Difficulty Not on fi le 03/02/2023 Education Answer Date Recorded Help with school or training? Not on file Preferred Language Not on file 03/02/2023 Sex and Gender Information Value Date Recorded Sex Assigned at Not on file Legal Sex Male 8:51 AM EST Gender Identity Not on file Sexual Orientation Not on file Last Filed Vital Signs Vital Sign Reading Time Taken Comments Blood Pressure 118/59 12/09/2022 9:37 AM EDT Pulse 54 12/09/2022 9:37 AM EDT ir Temperature 36 C (96.8 F) 12/09/2022 9:37 AM EDT Respiratory Rate 18 12/09/2022 9:37 AM EDT Oxygen Saturation 99% 12/09/2022 9:37 AM EDT ra Inhaled Oxygen Concentration - - Weight 88.7 kg (195 lb 9.6 oz) 12/09/2022 9:37 A M EDT Height 177.8 cm (5' 10 ) 12/09/2022 9:37 AM EDT Body Mass Index 28.07 12/09/2022 9:37 AM EDT Plan of Treatment Health Maintenance Due Date Last Done Comments Pneumococcal Vaccine 50+ (1 of 1 - PCV) 1991 ZOSTER VACCINE (1 of 2) 1991 TDAP/TD VACCINES (2 - Tdap) 07/25/2006 07/25/1996 RSV Vaccine - Adults (1 - 1- dose 75+ series) 2016 ANNUAL WELLNESS VISIT 12/09/2022 COVID-19 Vaccine (4 - season) 2024 04/21/2021, 07/22/2020, 06/24/2020 INFLUENZA VACCINE 02/19/2025 03/07/2022, , 02/23/2020 Insurance José Miguel[facility]PLACED BY [facility] Care Teams Zone Manager Relationship Specialty Start Date End Date Quinten Peralta MD [address] [place] [address] PCP - General Family Medicine 10/28/22
--- OUTSIDE RECORDS SUMMARY | 2024-12-26 12:09 | XMS_ITS | CCD ---
Author Organization Unknown Care Team Providers Care Lathe Set Up Person Name Role Phone Unavailable Primary Care Provider Unavailabl e Unavailable Chronic Care Management Unavaila ble Summary Purpose DataExchange Insurance Providers Payer name Policy type / Coverage type Covered democrat ID Effective Begin Date Effective End Date [facility] [id number] Unknown Unknown Family History Family History data not found Medication Administered No Medication Administered data Reason For Visit No Reason For Visit data Medical Equipment No Medical Equipment data Advance Directives No Advance Directive data
== END 2024-12-25 23:59 | disposition home or self-care (01) ==
LOC: LAB.DROPOF 12-26 11:07
PROVIDERS: PCP Internal Medicine; Visit Provider Internal Medicine
DX: Z00.00 Encounter for general adult medical examination without abnormal findings (principal); D64.9 Anemia, unspecified; Z11.4 Encounter for screening for human immunodeficiency virus [HIV]; N18.9 Chronic kidney disease, unspecified; Z13.1 Encounter for screening for diabetes mellitus; Z13.220 Encounter for screening for lipoid disorders; Z11.59 Encounter for screening for other viral diseases
CPT/HCPCS: 80053; 80061; 83036; 85025; 86803; 87389

== ENCOUNTER 2025-02-28 13:43 | Outpatient (CLI) | payer MEDICARE, SELFPAY ==
--- NOTE | 2025-02-28 13:48 | XR_ITS ---
FINAL REPORT CLINICAL HISTORY: left leg pain COMPARISON: 10/24/2022 FINDINGS: AP and frog leg views of the left hip were obtained. There is no acute fracture or dislocation. There are bilateral hip arthroplasties. The hardware is intact. There is no evidence of hardware complication. IMPRESSION: No acute osseous abnormality of the left hip. Reviewed, Interpreted and Dictated by Madison Landers MD Transcribed by Mary Childs Authenticated and [facility]
--- NOTE | 2025-02-28 13:48 | XR_ITS ---
FINAL REPORT CLINICAL HISTORY: left ANKLE PAIN, SWELLING FINDINGS: AP, oblique, and lateral views of the left ankle were obtained. There is no fracture or dislocation. There is mild degenerative joint disease. The mortise is intact. Diffuse soft tissue edema is identified. IMPRESSION: Soft tissue edema without acute osseous abnormality. Reviewed, Interpreted and Dictated by Madison Landesr MD Transcribed by Mary Childs Authenticated and [facility]
== END 2025-02-28 23:59 | disposition home or self-care (01) ==
LOC: RAD 13:45
PROVIDERS: PCP Internal Medicine; Visit Provider Orthopaedic Surgery
DX: M79.89 Other specified soft tissue disorders (principal); M25.572 Pain in left ankle and joints of left foot; M25.552 Pain in left hip; G89.29 Other chronic pain
CPT/HCPCS: 73502; 73610

== ENCOUNTER 2025-03-04 13:00 | Outpatient (CLI) | payer MEDICARE, SELFPAY ==
--- NOTE | 2025-03-04 13:00 | CA_ITS ---
FINAL REPORT CLINICAL HISTORY: Left ankle swelling FINDINGS: DUPLEX VENOUS SONOGRAPHY OF THE LEFT LOWER EXTREMITY Multiple transverse and longitudinal scans were performed of the femoropopliteal deep venous system, with augmentation and compression maneuvers. FINDINGS: Normal phasic flow was noted in the visualized deep venous system. No intraluminal increased echogenicity is noted to suggest thrombus. There is normal compression and augmentation of the venous structures. No abnormal venous collaterals are seen. IMPRESSION: No evidence of deep venous thrombosis of the left lower extremity. Reviewed, Interpreted and Dictated by Madison Landers MD Transcribed by Kelli Mckinney Authenticated and . [facility]
--- OUTSIDE RECORDS SUMMARY | 2025-03-04 13:08 | XMS_ITS | Referral Summary ---
Author Organization [employer] ([place], [place], [place], [place]) Address [address] [place] [address] Care Team Providers Care Director Of Recruiting Name Role Phone Quinten Peralta MD Primary Care Provider [phone] Allergies No known active allergies Medications AZITHROmycin (ZITHROMAX) 250 MG tablet Take 1 tablet (250 mg total) by mouth daily Take by mouth as directed. For 5 days. Active benzonatate (TESSALON) 200 MG capsule Take 1 capsule (200 mg total) by mouth 3 (three) times daily as needed for Cough. Active lisinopril-hydr oCHLOROthiazide (PRINZIDE,ZESTO RETIC) 20-12.5 mg per tablet Take 1 tablet by mouth daily. Active methylPREDNISol one (MEDROL) 4 MG tablet Take 1 tablet (4 mg total) by mouth daily. Active traMADoL (ULTRAM) 50 mg tablet Take 1 tablet (50 mg total) by mouth every 6 (six) hours as needed for Pain For 7 days. Active omeprazole (PriLOSEC OTC) 20 MG tablet Take 1 tablet (20 mg total) by mouth daily. Active Active Problems Problem Noted Date Diagnosed Date Hypertension GERD (gastroesophageal reflux disease) Social History Tobacco Use Types Packs/Day Years Used Date Smoking Tobacco: Former Cigarettes Smokeless Tobacco: Never Tobacco Cessation:Counseling Given: Not Answered Alcohol Use Standard Drinks/Week Comments Never 0 (1 standard drink = 0.6 oz pur e alcohol) Food Insecurity Answer Date Recorded Food run out past 12 months Not on file 05/22 Food did not last past 12 months Not on file 06/09/2023 Employment Answer Date Recorded Help finding and keeping a job Not on file 0 06/09/2023 Family and Community Support Answer Jesús e Recorded Help with Day to Day Activities Not on file 06/09/2023 Feeling Lonely or Isolated Not on file 06/09 Educational Attainment Answer Date Ankur rded Speak language other than Estonian at home Not on file 06/09/2023 Want help with school or training Not on file 06/09/2023 Substance Use Answer Date Recorded Used prescription meds for non-medical reasons N ot on file 06/09/2023 Used illegal drugs past 12 months Not on file 06/09/2023 Sex and Gender Information Value Date Recorded Sex Assigned at Not on file Legal Sex Male 12:32 PM CDT Gender Identity Not on file Sexual Orientation Not on file Last Filed Vital Signs Vital Sign Reading Time Taken Comments Blood Pressure 102/56 02/23/2023 9:53 AM EDT Pulse 98 02/23/2023 9:53 AM EDT Temperature 36.2 C (97.2 F) 02/23/2023 9:53 AM EDT Respiratory Rate 16 02/23/2023 9:53 AM EDT Oxygen Saturation 96% 02/23/2023 9:53 AM EDT Inhaled Oxygen Concentration - - Weight 87.2 kg (192 lb 3.2 oz) 02/22/2023 7:00 A M EDT Height 177.8 cm (5' 10 ) 02/22/2023 7:00 AM EDT Body Mass Index 27.58 02/22/2023 7:00 AM EDT Plan of Treatment Not on file Medical Devices Implanted Type Area Security Investigator Device Identifier Shelf Expiration Date Model / Serial / Lot Cup Clstr-Hole Altn Pcg5 52mm 41-591-30 2 - [id number] Implanted:Qty : 1 on 02/22/2023 by Willie Sheffield MD at [facility] TOTAL [employer] Left: Hip EXACTECH [id number] 07/26/203252 / [id number] / Liner Ntrl Grp 5 36mm Id 6 - [id number] Implanted:Qty : 1 on 02/22/2023 by Willie Sheffield MD at [facility] T[employer] Left: Hip EXACTECH [id number] 11/24/202740 -0536 / [id number] / Stem Fem Pf Sz9 113mm [id number] Implanted:Qty : 1 on 02/22/2023 by Willie Sheffield MD at [facility] TOTAL [employer] Left: Hip EXACTECH [id number] 06/22/2027 190 / [id number] / Head Fem Delta 36mm +7mm [id number] Implanted:Qty : 1 on 02/22/2023 by Willie Sheffield MD at [facility] TOTAL JOINT CONSTRUCT Left: Hip EXACTECH [id number] 06/06/2027 / [id number] / Insurance [facility] O MAP Advance Directives For more information, please contact: [phone] * Full Code (Latest Code Status on File) Date Activated Date Inactivated Comments 02/22/2023 10:35 AM 02/23/2023 2:19 PM * Full Code Date Activated Date Inactivated Comments 02/22/2023 6:12 AM 02/22/2023 10:35 AM Care Teams Director Of Recruiting Relationship Specialty Start Date End Date Quinten Peralta MD [address] [place] [address] PCP - General Family Medicine 02/22/23
--- OUTSIDE RECORDS SUMMARY | 2025-03-04 13:09 | XMS_ITS | Encounter Summary ---
Author Organization [employer] ([place], [place], [place], [place]) Address [address] [place] [address] Care Team Providers Care Molded Goods Operator Name Role Phone Quinten Peralta MD Primary Care Provider [phone] Encounter Details Date Type Department Care Team (Late st Contact Info) Description 02/21/2023 Surgery Prep [facility] Surgery Department [address] [place] [address] Willie Sheffield MD [address] [facility] 2nd [place] [address] Social History Tobacco Use Types Packs/Day Years Used Date Smoking Tobacco: Never Assessed Sex and Gender Information Value Date Recorded Sex Assigned at Not on file Legal Sex Male 12:32 PM CDT Gender Identity Not on file Sexual Orientation Not on file COVID-19 Exposure Response Date Recorded In the last 10 days, have yo u been in contact with someone who was confirmed or suspected to have Coronavirus/COVID-19? No / Unsure 02/22/2023 6:40 AM EDT documented as of this encounter Plan of Treatment Not on file documented as of this encounter Visit Diagnoses Not on filedocumented in this encounter Care Teams Molded Goods Operator Relationship Specialty Start Date End Date Quinten Peralta MD [address] [place] [id number] PCP - General Family Medicine 02/22/23 documented as of this encounter
--- OUTSIDE RECORDS SUMMARY | 2025-03-04 13:09 | XMS_ITS | Clinical Summary ---
Author Organization [employer] ([place], [place], [place], [place]) Address [address] [place] [address] Care Team Providers Care Drywall Finisher Name Role Phone Quinten Peralta MD Primary Care Provider [phone] Allergies No known active allergies Medications AZITHROmycin [...] Date Ankur rded Speak language other than Romansh at home Not on file 06/09/2023 Want [...] 02/22/2023 7:00 AM EDT Plan of Treatment Health Maintenance Due Date Last Done Comments Depression Screening (12+) 1953 Pneumococcal 50+ years (1 of 1 - PCV) 1991 Shingles Vaccine (Zoster) (1 of 2) 1991 DTAP/TDAP/TD VACCINES (2 - T d or Tdap) 07/25/2006 07/25/1996 Respiratory Syncytial Virus (RSV) Adult or (1 - 1-dose 75+ series) 2016 Medicare Initial AWV G0438 05/23/2022 Tobacco Cessation Counseling and Screening (12+) 02/23/2024 02/22/2023 Falls Risk Screening 05/22/2024 COVID-19 VACCINE ( season) 2025 04/21/2021, 07/22/2020, 06/24/2020 Influenza Vaccine (#1) 2025 2, 02/26/2021, 02/23/2020 Medical Devices Implanted Type Area Supply Chain Development Manager Device Identifier Shelf Expiration Date Model / Serial / Lot Cup Clstr-Hole Altn Pcg5 52mm 23-887-97 2 - [id number] Implanted:Qty : 1 on 02/22/2023 by Willie Sheffield MD at [facility] TOTAL JOINT [employer]STRU[employer] Left: Hip EXACTECH [id number] 07/26/203252 / [id number] / Liner Ntrl Grp 5 36mm Id - [id number] Implanted:Qty : 1 on 02/22/2023 by Willie Sheffield MD at [facility] TOTAL JOINT CONSTRUCT Left: Hip EXACTECH [id number] 11/24/202736 / [id number] / Stem Fem Pf Sz9 113mm - [id number] Implanted:Qty : 1 on 02/22/2023 by Willie Sheffield MD at [facility] TOTAL JOINT [employer]STRU[employer] Left: Hip EXACTECH [id number] 06/22/2027 / [id number] / Head Fem Delta 36mm +7mm - [id number] Implanted:Qty : 1 on 02/22/2023 by Willie Sheffield MD at [facility] TOTAL JOINT CONSTRUCT Left: Hip EXACTECH [id number] 06/06/2027 / [id number] / Insurance [facility] [employer] O MAP Advance Directives For more information, please contact: [phone] * Full Code (Latest Code Status on File) Date Activated Date Inactivated Comments 02/22/2023 10:35 AM 02/23/2023 2:19 PM * Full Code Date Activated Date Inactivated Comments 02/22/2023 6:12 AM 02/22/2023 10:35 AM Care Teams Drywall Finisher Relationship Specialty Start Date End Date Quinten Peralta MD [address] [place], [place] [address] PCP - General Family Medicine 02/22/23
--- OUTSIDE RECORDS SUMMARY | 2025-03-04 13:09 | XMS_ITS | Clinical Summary ---
Author Organization [facility] Address [address] [place] [address] Care Team Providers Care Art Objects Salesperson Name Role Phone Quinten Peralta MD Primary Care Provider [phone] Allergies No known active allergies Medications esomeprazole [...] (12/29/2022): Added automatically from request for surgery [id number] Family History Medical History Relation Name Comments [...] 75+ series) 2016 ANNUAL WELLNESS VISIT 12/09/2022 INFLUENZA VACCINE 12/20/2024 03/07/2022, , 02/23/2020 COVID-19 Vaccine ( season) 2025 04/21/2021, 07/22/2020, 06/24/2020 [facility] Care Teams Art Objects Salesperson Relationship Specialty Start Date End Date Quinten Peralta MD [address] [place] [address] PCP - General Family Medicine 10/28/22
--- OUTSIDE RECORDS SUMMARY | 2025-03-04 14:08 | XMS_ITS | CCD ---
Author Organization Unknown Care Team Providers Care Packaging Specialist Name Role Phone Unavailable Primary Care Provider Unavailabl e Unavailable Chronic Care Management Unavaila ble Summary Purpose DataExchange Insurance Providers Payer name Policy type / Coverage type Covered republican ID Effective Begin Date Effective End Date [facility] [id number] Unknown Unknown Family History Family History data not found Medication Administered No Medication Administered data Reason For Visit No Reason For Visit data Medical Equipment No Medical Equipment data Advance Directives No Advance Directive data
--- OUTSIDE RECORDS SUMMARY | 2025-03-04 14:08 | XMS_ITS | CCD ---
Author Organization Unknown Care Team Providers Care Half Section Ironer Name Role Phone Unavailable Primary Care Provider Unavailabl e Unavailable Chronic Care Management Unavaila ble Summary Purpose DataExchange Insurance Providers Payer name Policy type / Coverage type Covered democrat ID Effective Begin Date Effective End Date [facility] [id number] Unknown Unknown Family History Family History data not found Medication Administered No Medication Administered data Reason For Visit No Reason For Visit data Medical Equipment No Medical Equipment data Advance Directives No Advance Directive data
== END 2025-03-04 23:59 | disposition home or self-care (01) ==
LOC: RT 13:01
PROVIDERS: PCP Internal Medicine; Visit Provider Orthopaedic Surgery
DX: M25.472 Effusion, left ankle (principal); M79.662 Pain in left lower leg
CPT/HCPCS: 93971

== ENCOUNTER 2025-03-27 09:55 | Outpatient (CLI) | payer MEDICARE, SELFPAY ==
[2025-03-27 17:19] LABS: Albumin Level 4.6 g/dl (3.5-5.0); Chloride 99 mmol/L (98-107); Sodium 139 mmol/L (136-145)
[2025-03-27 17:20] LABS: Potassium 4.4 mmoL/L (3.5-5.1)
[2025-03-27 17:22] LABS: Alanine Aminotransferase 17 U/L (12-78); Albumin/Globulin Ratio 1.8 (1.1-1.8); Alkaline Phosphatase 115 U/L (38-126); Anion Gap 14.4 mEq/L (5-15); Aspartate Amino Transferase 27 U/L (17-59); Bilirubin,Total 0.8 mg/dl (0.2-1.3); Blood Urea Nitrogen 21 mg/dl (9-20); Carbon Dioxide 30 mmol/L (22.0-30.0); Creatinine,Serum 1.30 mg/dl (0.66-1.25); Estimated Glomerular Filt Rate 53 ml/min (>60); GFR (African American) 64 ML/MIN (>60); Globulin 2.6 g/dL (1.3-3.2); Total Protein,Serum 7.2 g/dl (6.3-8.2); Uric Acid 8.2 mg/dl (3.5-8.5)
[2025-03-27 17:23] LABS: Calcium 9.5 mg/dl (8.4-10.2); Cholesterol 129 mg/dl (140-200); Glucose 86 mg/dl (74-100); HDL Cholesterol 63 mg/dl (40-60); Triglycerides 90 mg/dl (30-150)
[2025-03-27 17:34] LABS: NT Pro Brain Natriuretic Pep. 2640 pg/mL (0-450)
--- OUTSIDE RECORDS SUMMARY | 2025-03-31 10:02 | XMS_ITS | Clinical Summary ---
Author Organization [employer] ([place], [place], [place], [place], [place]) Address [address] [place] [address] Care Team Providers Care Collections Assistant Name Role Phone Quinten Peralta MD Primary Care Provider [phone] Allergies No known active allergies Medications AZITHROmycin [...] Date Ankur rded Speak language other than Macedonian at home Not on file 06/09/2023 Want [...] 02/26/2021, 02/23/2020 Medical Devices Implanted Type Area Terrazzo Grinder Device Identifier Shelf Expiration Date Model / Serial / Lot Cup Clstr-Hole Altn Pcg5 52mm 80-757-88 2 - [id number] Implanted:Qty : 1 on 02/22/2023 by Willie Sheffield MD at [facility] TOTAL JOINT CONSTRUCT Left: Hip EXACTECH [id number] 07/26/203252 / [id number] / Liner Ntrl Grp 5 36mm Id - [id number] Implanted:Qty : 1 on 02/22/2023 by Willie Sheffield MD at [facility] TOTAL JOINT CONSTRUCT Left: Hip EXACTECH [id number] 11/24/202736 / [id number] / Stem Fem Pf Sz9 113mm - [id number] Implanted:Qty : 1 on 02/22/2023 by Willie Sheffield MD at [facility] TOTAL JOINT CONSTRUCT Left: Hip EXACTECH [id number] 06/22/2027 / [id number] / Head Fem Delta 36mm +7mm - [id number] Implanted:Qty : 1 on 02/22/2023 by Willie Sheffield MD at [facility] TOTAL JOINT CONSTRUCT Left: Hip EXACTECH [id number] 06/06/2027 / [id number] / Insurance [facility] ACCESS O MAP Advance Directives For more information, please contact: [phone] * Full Code (Latest Code Status on File) Date Activated Date Inactivated Comments 02/22/2023 10:35 AM 02/23/2023 2:19 PM * Full Code Date Activated Date Inactivated Comments 02/22/2023 6:12 AM 02/22/2023 10:35 AM Care Teams Collections Assistant Relationship Specialty Start Date End Date Quinten Peralta MD [address] [place] [address] PCP - General Family Medicine 02/22/23
--- OUTSIDE RECORDS SUMMARY | 2025-03-31 10:02 | XMS_ITS | Encounter Summary ---
Author Organization [employer] ([place], [place], [place], [place], [place]) Address [address] [place] [address] Care Team Providers Care Financial Services Consultant Name Role Phone Quinten Peralta MD Primary Care Provider [phone] Encounter Details Date Type Department Care Team (Late st Contact Info) Description 02/21/2023 Surgery Prep [facility] Surgery Department [address] [place] [address] Willie Sheffield MD [address] [facility] 2nd [place] [address] Social History Tobacco Use Types Packs/Day Years [...] on filedocumented in this encounter Care Teams Financial Services Consultant Relationship Specialty Start Date End Date Quinten Peralta MD [address] [place] [address] PCP - General Family Medicine 02/22/23 documented as of this encounter
--- OUTSIDE RECORDS SUMMARY | 2025-03-31 10:02 | XMS_ITS | Referral Summary ---
Author Organization [employer] ([place], [place], [place], [place], [place]) Address [address] [place] [address] Care Team Providers Care Floor Trader Name Role Phone Quinten Peralta MD Primary Care Provider [phone] Allergies No known active allergies Medications AZITHROmycin [...] Date Ankur rded Speak language other than Palestinian at home Not on file 06/09/2023 Want [...] on file Medical Devices Implanted Type Area Museum Service Scheduler Device Identifier Shelf Expiration Date Model / Serial / Lot Cup Clstr-Hole Altn Pcg5 52mm 27-028-43 2 - [id number] Implanted:Qty : 1 on 02/22/2023 by Willie Sheffield MD at [facility] TOTAL [employer]STRU[employer] Left: Hip EXACTECH [id number] 07/26/203252 / [id number] / Liner Ntrl Grp 5 36mm Id 6 - [id number] Implanted:Qty : 1 on 02/22/2023 by Willie Sheffield MD at [facility] TOTAL [employer]STRU[employer] Left: Hip EXACTECH [id number] 11/24/2027 / [id number] / Stem Fem Pf Sz9 113mm [id number] Implanted:Qty : 1 on 02/22/2023 by Willie Sheffield MD at [facility] TOTAL JO[employer]STRU[employer] Left: Hip EXACTECH [id number] 06/22/2027 190 / [id number] / Head Fem Delta 36mm +7mm [id number] Implanted:Qty : 1 on 02/22/2023 by Willie Sheffield MD at [facility] TOTAL JOINT CONSTRUCT Left: Hip EXACTECH [id number] 06/06/2027 / [id number] / Insurance [facility] ACCESS O MAP Advance Directives For more information, please contact: [phone] * Full Code (Latest Code Status on File) Date Activated Date Inactivated Comments 02/22/2023 10:35 AM 02/23/2023 2:19 PM * Full Code Date Activated Date Inactivated Comments 02/22/2023 6:12 AM 02/22/2023 10:35 AM Care Teams Floor Trader Relationship Specialty Start Date End Date Quinten Peralta MD [address] [place] [id number] PCP - General Family Medicine 02/22/23
--- OUTSIDE RECORDS SUMMARY | 2025-03-31 10:02 | XMS_ITS | CCD ---
Author Organization Unknown Care Team Providers Care Terrazzo Finisher Name Role Phone Unavailable Primary Care Provider Unavailabl e Unavailable Chronic Care Management Unavaila ble Summary Purpose DataExchange Insurance Providers Payer name Policy type / Coverage type Covered alliance party ID Effective Begin Date Effective End Date [facility] [id number] Unknown Unknown Family History Family History data not found Medication Administered No Medication Administered data Reason For Visit No Reason For Visit data Medical Equipment No Medical Equipment data Advance Directives No Advance Directive data
--- OUTSIDE RECORDS SUMMARY | 2025-03-31 10:02 | XMS_ITS | CCD ---
Author Organization Unknown Care Team Providers Care Cancer Program Consultant Name Role Phone Unavailable Primary Care Provider Unavailabl e Unavailable Chronic Care Management Unavaila ble Summary Purpose DataExchange Insurance Providers Payer name Policy type / Coverage type Covered democrat ID Effective Begin Date Effective End Date [facility] [id number] Unknown Unknown Family History Family History data not found Medication Administered No Medication Administered data Reason For Visit No Reason For Visit data Medical Equipment No Medical Equipment data Advance Directives No Advance Directive data
--- OUTSIDE RECORDS SUMMARY | 2025-03-31 10:02 | XMS_ITS | Clinical Summary ---
Author Organization [facility] Address [address] [place] [address] Care Team Providers Care Data Operations Director Name Role Phone Quinten Peralta MD Primary Care Provider [phone] Allergies No known active allergies Medications esomeprazole [...] (12/29/2022): Added automatically from request for surgery [id number] Family History Medical History Relation Name Comments [...] VACCINE 12/20/2024 03/07/2022, , 02/23/2020 Insurance [facility] Care Teams Data Operations Director Relationship Specialty Start Date End Date Quinten Peralta MD [address] [place] [address] PCP - General Family Medicine 10/28/22
== END 2025-03-27 23:59 ==
LOC: LAB.DROPOF 03-31 09:55
PROVIDERS: PCP Internal Medicine; Visit Provider Internal Medicine
DX: M10.9 Gout, unspecified (principal); E87.79 Other fluid overload; N18.9 Chronic kidney disease, unspecified
CPT/HCPCS: 80053; 80061; 83880; 84550

== ENCOUNTER 2025-03-28 10:42 | Outpatient (CLI) | payer MEDICARE, SELFPAY ==
--- OUTSIDE RECORDS SUMMARY | 2025-03-28 10:43 | XMS_ITS | CCD ---
Author Organization Unknown Care Team Providers Care Rotary Soil Stabilizer Operator Name Role Phone Unavailable Primary Care Provider Unavailabl e Unavailable Chronic Care Management Unavaila ble Summary Purpose DataExchange Insurance Providers Payer name Policy type / Coverage type Covered republican ID Effective Begin Date Effective End Date [facility] [id number] Unknown Unknown Family History Family History data not found Medication Administered No Medication Administered data Reason For Visit No Reason For Visit data Medical Equipment No Medical Equipment data Advance Directives No Advance Directive data
--- OUTSIDE RECORDS SUMMARY | 2025-03-28 10:44 | XMS_ITS | CCD ---
Author Organization Unknown Care Team Providers Care Ceramic Sprayer Name Role Phone Unavailable Primary Care Provider Unavailabl e Unavailable Chronic Care Management Unavaila ble Summary Purpose DataExchange Insurance Providers Payer name Policy type / Coverage type Covered libertarian ID Effective Begin Date Effective End Date [facility] [id number] Unknown Unknown Family History Family History data not found Medication Administered No Medication Administered data Reason For Visit No Reason For Visit data Medical Equipment No Medical Equipment data Advance Directives No Advance Directive data
--- OUTSIDE RECORDS SUMMARY | 2025-03-28 10:44 | XMS_ITS | Referral Summary ---
Author Organization [employer] ([place], [place], [place], [place], [place]) Address [address] [place] [address] Care Team Providers Care Supply Assistant Name Role Phone Quinten Peralta MD Primary Care Provider [phone] Allergies No known active allergies Medications AZITHROmycin [...] Date Ankur rded Speak language other than Turkmen at home Not on file 06/09/2023 Want [...] on file Medical Devices Implanted Type Area Log Raft Worker Device Identifier Shelf Expiration Date Model / Serial / Lot Cup Clstr-Hole Altn Pcg5 52mm 23-653-09 2 - [id number] Implanted:Qty : 1 on 02/22/2023 by Willie Sheffield MD at [facility] TOTAL JOINT CONSTRUCT Left: Hip EXACTECH [id number] 07/26/203252 / [id number] / Liner Ntrl Grp 5 36mm Id 6 - [id number] Implanted:Qty : 1 on 02/22/2023 by Willie Sheffield MD at [facility] TOTAL JOINT CONSTRUCT Left: Hip EXACTECH [id number] 11/24/2027 / [id number] / Stem Fem Pf Sz9 113mm [id number] Implanted:Qty : 1 on 02/22/2023 by Willie Sheffield MD at [facility] TOTAL JOINT CONSTRUCT Left: Hip EXACTECH [id number] 06/22/2027 190 / [id number] / Head Fem Delta 36mm +7mm [id number] Implanted:Qty : 1 on 02/22/2023 by Willie Sheffield MD at [facility] TOTAL JOINT CONSTRUCT Left: Hip EXACTECH [id number] 06/06/2027 / [id number] / Insurance [facility] ACCESS O MAP Advance Directives For more information, please contact: [phone] * Full Code (Latest Code Status on File) Date Activated Date Inactivated Comments 02/22/2023 10:35 AM 02/23/2023 2:19 PM * Full Code Date Activated Date Inactivated Comments 02/22/2023 6:12 AM 02/22/2023 10:35 AM Care Teams Supply Assistant Relationship Specialty Start Date End Date Quinten Peralta MD [address] [place] [address] PCP - General Family Medicine 02/22/23
--- OUTSIDE RECORDS SUMMARY | 2025-03-28 10:44 | XMS_ITS | Clinical Summary ---
Author Organization [facility] Address [address] [place] [address] Care Team Providers Care Mat Puncher Name Role Phone Quinten Peralta MD Primary Care Provider [phone] Allergies No known active allergies Medications esomeprazole [...] (12/29/2022): Added automatically from request for surgery [id number] Family History Medical History Relation Name Comments [...] (1 - 1- dose 75+ series) 2016 COVID-19 Vaccine (3 - Modern a risk series) 05/19/2021 04/21/2021, 07/22/2020, 06/24/2020 ANNUAL WELLNESS VISIT 12/09/2022 INFLUENZA VACCINE 12/20/2024 03/07/2022, , 02/23/2020 [facility] Care Teams Mat Puncher Relationship Specialty Start Date End Date Quinten Peralta MD [address] [place] [address] PCP - General Family Medicine 10/28/22
--- OUTSIDE RECORDS SUMMARY | 2025-03-28 10:44 | XMS_ITS | Encounter Summary ---
Author Organization [employer] ([place], [place], [place], [place], [place]) Address [address] [place] [address] Care Team Providers Care Radio Program Director Name Role Phone Quinten Peralta MD Primary Care Provider [phone] Encounter Details Date Type Department Care Team (Late st Contact Info) Description 02/21/2023 Surgery Prep [facility] Surgery Department [address] [place] [address] Willie Sheffield MD [address] [facility] 2nd [place] [address] Social History Tobacco Use Types Packs/Day Years [...] on filedocumented in this encounter Care Teams Radio Program Director Relationship Specialty Start Date End Date Quinten Peralta MD [address] [place] [address] PCP - General Family Medicine 02/22/23 documented as of this encounter
--- OUTSIDE RECORDS SUMMARY | 2025-03-28 10:44 | XMS_ITS | Clinical Summary ---
Author Organization [employer] ([place], [place], [place], [place], [place]) Address [address] [place] [address] Care Team Providers Care Automotive Collision Estimator Name Role Phone Quinten Peralta MD Primary Care Provider Allergies No known active allergies Medications AZITHROmycin [...] Date Ankur rded Speak language other than Azerbaijani at home Not on file 06/09/2023 Want [...] 02/26/2021, 02/23/2020 Medical Devices Implanted Type Area Rf Test Engineer Device Identifier Shelf Expiration Date Model / Serial / Lot Cup Clstr-Hole Altn Pcg5 52mm 88-957-06 2 - [id number] Implanted:Qty : 1 on 02/22/2023 by Willie Sheffield MD at [facility] TOTAL JOINT CONSTRUCT Left: Hip EXACTECH [id number] 07/26/203252 / [id number] / Liner Ntrl Grp 5 36mm Id - [id number] Implanted:Qty : 1 on 02/22/2023 by Willie Sheffield MD at [facility] TOTAL JOINT CONSTRUCT Left: Hip EXACTECH [id number] 11/24/202736 / [id number] / Stem Fem Pf Sz9 113mm - [id number] Implanted:Qty : 1 on 02/22/2023 by Willie Sheffield MD at [facility] TOTAL JOINT CONSTRUCT Left: Hip EXACTECH [id number] 06/22/2027 / [id number] / Head Fem Delta 36mm +7mm - [id number] Implanted:Qty : 1 on 02/22/2023 by Willie Sheffield MD at [facility] TOTAL JOINT CONSTRUCT Left: Hip EXACTECH [id number] 06/06/2027 / [id number] / Insurance [facility] ACCESS O MAP Advance Directives For more information, please contact: [phone] * Full Code (Latest Code Status on File) Date Activated Date Inactivated Comments 02/22/2023 10:35 AM 02/23/2023 2:19 PM * Full Code Date Activated Date Inactivated Comments 02/22/2023 6:12 AM 02/22/2023 10:35 AM Care Teams Automotive Collision Estimator Relationship Specialty Start Date End Date Quinten Peralta MD [address] [place] [place] [place] [address] PCP - General Family Medicine 02/22/23
--- NOTE | 2025-03-28 11:00 | CA_ITS ---
APPROVED REPORT EXAM: Comprehensive 2D, Doppler, and color-flow Echocardiogram It Application Architect: ERIC Cardoso, RVS Ht: 5 ft 11 in Wt: 214lbs BSA: 2.17 BP: 132/82 mmHg Indications: Volume overload, SOA, Pedal edema, HTN 2D Dimensions IVSd 0.99 cm M: 0.6-1.2 LVEF (Visual) 66.40 % PWd 0.89 cm M: 0.6 - 1.2 LA Volume 64.70 mL LVDd 4.90 cm M: 4.2 - 5.9 LA Volume Index 29.436553 mL/m2 (M/F) 16-34 LVDs 3.10 cm M: 2.5 - 4.0 Left Atrium 3.42 cm M: 3.0 - 4.0 M-Mode Dimensions LA Diam 4.08 cm (1.9-4.0) EPSs 1.61 cm TAPSE 1.79 (<1.7) LV Diastology E Decel Time 117 (160-240 msec) E/A Ratio 1.46 MED A' 8.70 cm/s LAT A' 6.80 cm/s Aortic Valve RALEIGH Index 1.23 cm2/m2 AoV Peak Jj. 102.0 (50-130 cm/s) AO Peak GR. 4.10 mmHg AO Mean GR. 2.00 (<5 mmHg) AO VTI 18.0 (18-25 cm) RALEIGH (VTI) 2.74 (2.5-4.5 cm2) Mitral Valve MV A Velocity 49.0 (40-130 cm/s) E/A Ratio 1.46 Pulmonary Valve PV Peak Velocity 80.0 (50-150 cm/s) Tricuspid Valve TR P. Velocity 223.00 cm/s RAP Estimate 10.00 mmHg RVSP 29.90 mmHg Left Ventricle The left ventricle is normal size. Left ventricular systolic function is normal. The left ventricular ejection fraction is within the normal range. There is increased left ventricular wall thickness. There is normal LV segmental wall motion. Transmitral Doppler flow pattern suggests impaired LV relaxation. LVEF is 55% Right Ventricle The right ventricle is mildly dilated. The right ventricular systolic function is normal. Atria The left atrium is mildly dilated. The right atrium is mildly dilated. There is no color Doppler evidence of interatrial shunt. Aortic Valve The aortic valve is mildly thickened. There is no hemodynamically significant aortic valvular stenosis. No aortic regurgitation is present. Mitral Valve The mitral valve is normal in structure. No evidence of mitral valve stenosis. Trace mitral regurgitation is present. Tricuspid Valve The tricuspid valve leaflets are thin and pliable. Trace tricuspid regurgitation. There is insufficient TR jet to estimate RVSP. Pulmonic Valve The pulmonary valve is grossly normal in structure. Trace pulmonic valve regurgitation is present. Great Vessels The aortic root is normal in size. IVC is normal in size and collapses >50% with inspiration. Pericardium There is a small sized, anterior pericardial effusion present. The largest pocket measures 0.4 cm in diastole. No echo indications of tamponade. Other Information Study Quality: Technically Difficult Conclusion Normal biventricular systolic function. Mild RV dilation. Biatrial dilation. No significant valvular stenosis or regurgitation. Small sized, anterior pericardial effusion present. The largest pocket measures 0.4 cm in diastole. No echo indications of tamponade. In the setting of small pericardial effusion, serial limited TTEss are suggested to evaluate for resolution versus progression. Electronically signed by : Brinda Zaragoza MD 04/01/2025 13:00:28
== END 2025-03-28 23:59 | disposition home or self-care (01) ==
LOC: RT 10:42
PROVIDERS: PCP Internal Medicine; Visit Provider Internal Medicine
DX: I11.9 Hypertensive heart disease without heart failure (principal); I31.39 Other pericardial effusion (noninflammatory); E87.79 Other fluid overload
CPT/HCPCS: 93306

== ENCOUNTER 2025-04-02 12:29 | Outpatient (CLI) | payer MEDICARE, SELFPAY ==
--- NOTE | 2025-04-02 12:32 | XR_ITS ---
FINAL REPORT CLINICAL HISTORY: Swelling/joint pain COMPARISON: None FINDINGS: Two views of the right foot were obtained. There is no acute fracture or dislocation. Osteopenia is noted. There is a moderate hallux valgus deformity. There is no soft tissue abnormality. IMPRESSION: Chronic changes without acute process. Reviewed, Interpreted and Dictated by Saqib Rascon MD Transcribed by Kelli Mckinney Authenticated and [facility]
--- NOTE | 2025-04-02 12:32 | XR_ITS ---
FINAL REPORT CLINICAL HISTORY: Swelling/joint pain COMPARISON: None FINDINGS: Two views of the left foot were obtained. There is no acute fracture or dislocation. Osteopenia is noted. There is a moderate hallux valgus deformity. There is no soft tissue abnormality. IMPRESSION: Chronic changes without acute process. Reviewed, Interpreted and Dictated by Saqib Rascon MD Transcribed by Kelli Mckinney Authenticated and [facility]
--- OUTSIDE RECORDS SUMMARY | 2025-04-02 12:32 | XMS_ITS | Clinical Summary ---
Author Organization [facility] Address [address] [place] [address] Care Team Providers Care Powder Line Repairer Name Role Phone Quinten Peralta MD Primary Care Provider [phone] Allergies No known active allergies Medications esomeprazole [...] (12/29/2022): Added automatically from request for surgery [id number] Family History Medical History Relation Name Comments [...] VACCINE 12/20/2024 03/07/2022, , 02/23/2020 [facility] Care Teams Powder Line Repairer Relationship Specialty Start Date End Date Quinten Peralta MD [address] [place] [address] PCP - General Family Medicine 10/28/22
--- OUTSIDE RECORDS SUMMARY | 2025-04-02 12:33 | XMS_ITS | Clinical Summary ---
Author Organization [employer] ([place], [place], [place], [place], [place]) Address [address] [place] [address] Care Team Providers Care Vascular Ultrasound Technician Name Role Phone Quinten Peralta MD Primary Care Provider [phone] Allergies No known active allergies Medications AZITHROmycin [...] Date Ankur rded Speak language other than Vincentian at home Not on file 06/09/2023 Want [...] 02/26/2021, 02/23/2020 Medical Devices Implanted Type Area Partition Notcher Device Identifier Shelf Expiration Date Model / Serial / Lot Cup Clstr-Hole Altn Pcg5 52mm 29-399-38 2 - [id number] Implanted:Qty : 1 on 02/22/2023 by Willie Sheffield MD at [facility] TOTAL [employer]STRU[employer] Left: Hip EXACTECH [id number] 07/26/203252 / [id number] / Liner Ntrl Grp 5 36mm Id - [id number] Implanted:Qty : 1 on 02/22/2023 by Willie Sheffield MD at [facility] TOTAL JO[employer]STRU[employer] Left: Hip EXACTECH [id number] 11/24/202736 / [id number] / Stem Fem Pf Sz9 113mm - [id number] Implanted:Qty : 1 on 02/22/2023 by Willie Sheffield MD at [facility] TOTAL JO[employer]STRU[employer] Left: Hip EXACTECH [id number] 06/22/2027 / [id number] / Head Fem Delta 36mm +7mm - [id number] Implanted:Qty : 1 on 02/22/2023 by Willie Sheffield MD at [facility] TOTAL JO[employer] CONSTRU[employer] Left: Hip EXACTECH [id number] 06/06/2027 / [id number] / Insurance [facility] ACCESS O MAP Advance Directives For more information, please contact: [phone] * Full Code (Latest Code Status on File) Date Activated Date Inactivated Comments 02/22/2023 10:35 AM 02/23/2023 2:19 PM * Full Code Date Activated Date Inactivated Comments 02/22/2023 6:12 AM 02/22/2023 10:35 AM Care Teams Vascular Ultrasound Technician Relationship Specialty Start Date End Date Quinten Peralta MD [address] [place] [address] PCP - General Family Medicine 02/22/23
--- OUTSIDE RECORDS SUMMARY | 2025-04-02 12:33 | XMS_ITS | Referral Summary ---
Author Organization [employer] ([place], [place], [place], [place], [place]) Address [address] [place] [address] Care Team Providers Care Safety Physician Name Role Phone Quinten Peralta MD Primary Care Provider [phone] Allergies No known active allergies Medications AZITHROmycin [...] Date Ankur rded Speak language other than Sierra Leonean at home Not on file 06/09/2023 Want [...] on file Medical Devices Implanted Type Area Electronic Imaging System Operator Device Identifier Shelf Expiration Date Model / Serial / Lot Cup Clstr-Hole Altn Pcg5 52mm 93-852-92 2 - [id number] Implanted:Qty : 1 on 02/22/2023 by Willie Sheffield MD at [facility] TOTAL JO[employer] CONSTRU[employer] Left: Hip EXACTECH [id number] 07/26/203252 / [id number] / Liner Ntrl Grp 5 36mm Id 6 - [id number] Implanted:Qty : 1 on 02/22/2023 by Willie Sheffield MD at [facility] TOTAL JOINT CONSTRU[employer] Left: Hip EXACTECH [id number] 11/24/2027 / [id number] / Stem Fem Pf Sz9 113mm [id number] Implanted:Qty : 1 on 02/22/2023 by Willie Sheffield MD at [facility] TOTAL JO[employer] CONSTRU[employer] Left: Hip EXACTECH [id number] 06/22/2027 190 / [id number] / Head Fem Delta 36mm +7mm [id number] Implanted:Qty : 1 on 02/22/2023 by Willie Sheffield MD at [facility] TOTAL JOINT CONSTRUCT Left: Hip EXACTECH [id number] 06/06/2027 / [id number] / Insurance [facility] ACCESS O MAP Advance Directives For more information, please contact: [phone] * Full Code (Latest Code Status on File) Date Activated Date Inactivated Comments 02/22/2023 10:35 AM 02/23/2023 2:19 PM * Full Code Date Activated Date Inactivated Comments 02/22/2023 6:12 AM 02/22/2023 10:35 AM Care Teams Safety Physician Relationship Specialty Start Date End Date Quinten Peralta MD [address] [place] [address] PCP - General Family Medicine 02/22/23
--- OUTSIDE RECORDS SUMMARY | 2025-04-02 12:34 | XMS_ITS | Encounter Summary ---
Author Organization [employer] ([place], [place], [place], [place], [place]) Address [address] [place] [address] Care Team Providers Care Funeral Director/Embalmer/Owner Name Role Phone Quinten Peralta MD Primary Care Provider [phone] Encounter Details Date Type Department Care Team (Late st Contact Info) Description 02/21/2023 Surgery Prep [facility] Surgery Department [address] [place] [address] Willie Sheffield MD [address] [facility] 2nd [place] [address] Social History Tobacco Use Types Packs/Day Years [...] on filedocumented in this encounter Care Teams Funeral Director/Embalmer/Owner Relationship Specialty Start Date End Date Quinten Peralta MD [address] [place] [address] PCP - General Family Medicine 02/22/23 documented as of this encounter
[2025-04-02 14:02] LABS: Alanine Aminotransferase 16 U/L (12-78); Albumin Level 4.1 g/dl (3.5-5.0); Albumin/Globulin Ratio 1.3 (1.1-1.8); Alkaline Phosphatase 128 U/L (38-126); Anion Gap 11.8 mEq/L (5-15); Aspartate Amino Transferase 25 U/L (17-59); Bilirubin,Total 0.8 mg/dl (0.2-1.3); Blood Urea Nitrogen 35 mg/dl (9-20); Calcium 9.9 mg/dl (8.4-10.2); Carbon Dioxide 31 mmol/L (22.0-30.0); Chloride 94 mmol/L (98-107); Creatinine,Serum 1.90 mg/dl (0.66-1.25); Estimated Glomerular Filt Rate 34 ml/min (>60); GFR (African American) 41 ML/MIN (>60); Globulin 3.1 g/dL (1.3-3.2); Glucose 92 mg/dl (74-100); Potassium 3.8 mmoL/L (3.5-5.1); Sodium 133 mmol/L (136-145); Total Protein,Serum 7.2 g/dl (6.3-8.2); Uric Acid 10.7 mg/dl (3.5-8.5)
[2025-04-02 14:08] LABS: C-Reactive Protein 22.7 mg/L (0-4)
== END 2025-04-02 23:59 | disposition home or self-care (01) ==
LOC: LAB 12:30
PROVIDERS: PCP Internal Medicine; Visit Provider Internal Medicine
DX: Z00.00 Encounter for general adult medical examination without abnormal findings (principal); M85.872 Other specified disorders of bone density and structure, left ankle and foot; M85.871 Other specified disorders of bone density and structure, right ankle and foot; M20.12 Hallux valgus (acquired), left foot; M20.11 Hallux valgus (acquired), right foot; Z79.899 Other long term (current) drug therapy
CPT/HCPCS: 36415; 73620; 80053; 84550; 86140

== ENCOUNTER 2025-04-15 12:18 | Outpatient (CLI) | payer MEDICARE, SELFPAY ==
--- OUTSIDE RECORDS SUMMARY | 2025-04-15 12:22 | XMS_ITS | Clinical Summary ---
Author Organization [employer] ([place], [place], [place], [place], [place]) Address [address] [place] [address] Care Team Providers Care Health Occupations Teacher Name Role Phone Quinten Peralta MD Primary Care Provider [phone] Allergies No known active allergies Medications AZITHROmycin [...] Date Ankur rded Speak language other than British [place] Islander at home Not on file 06/09/2023 Want [...] 02/26/2021, 02/23/2020 Medical Devices Implanted Type Area Bet Taker Device Identifier Shelf Expiration Date Model / Serial / Lot Cup Clstr-Hole Altn Pcg5 52mm 11-145-11 2 - [id number] Implanted:Qty : 1 on 02/22/2023 by Willie Sheffield MD at [facility] TOTAL JOINT CONSTRUCT Left: Hip EXACTECH [id number] 07/26/203252 / [id number] / Liner Ntrl Grp 5 36mm Id - [id number] Implanted:Qty : 1 on 02/22/2023 by Willie Sheffield MD at [facility] TOTAL JOINT CONSTRU[employer] Left: Hip EXACTECH [id number] 11/24/202736 / [id number] / Stem Fem Pf Sz9 113mm - [id number] Implanted:Qty : 1 on 02/22/2023 by Willie Sheffield MD at [facility] TOTAL JOINT CONSTRUCT Left: Hip EXACTECH [id number] 06/22/2027 / [id number] / Head Fem Delta 36mm +7mm - [id number] Implanted:Qty : 1 on 02/22/2023 by Willie Sheffield MD at [facility] TOTAL JOINT CONSTRU[employer] Left: Hip EXACTECH [id number] 06/06/2027 / [id number] / Insurance [facility] ACCESS O MAP Advance Directives For more information, please contact: [phone] * Full Code (Latest Code Status on File) Date Activated Date Inactivated Comments 02/22/2023 10:35 AM 02/23/2023 2:19 PM * Full Code Date Activated Date Inactivated Comments 02/22/2023 6:12 AM 02/22/2023 10:35 AM Care Teams Health Occupations Teacher Relationship Specialty Start Date End Date Quinten Peralta MD [address] [place] [place] [address] PCP - General Family Medicine 02/22/23
--- OUTSIDE RECORDS SUMMARY | 2025-04-15 12:22 | XMS_ITS | Referral Summary ---
Author Organization [employer] ([place], [place], [place], [place], [place]) Address [address] [place] [address] Care Team Providers Care Contracts Officer Name Role Phone Quinten Peralta MD Primary Care Provider [phone] Allergies No known active allergies Medications AZITHROmycin [...] Date Ankur rded Speak language other than Ivorian at home Not on file 06/09/2023 Want [...] on file Medical Devices Implanted Type Area Senior Mechanical Development Engineer Device Identifier Shelf Expiration Date Model / Serial / Lot Cup Clstr-Hole Altn Pcg5 52mm 86-999-94 2 - [id number] Implanted:Qty : 1 on 02/22/2023 by Willie Sheffield MD at [facility] TOTAL JOINT CONSTRUCT Left: Hip EXACTECH [id number] 07/26/203252 / [id number] / Liner Ntrl Grp 5 36mm Id 6 - [id number] Implanted:Qty : 1 on 02/22/2023 by Willie Sheffield MD at [facility] TOTAL JOINT CONSTRUCT Left: Hip EXACTECH [id number] 11/24/2027 / [id number] / Stem Fem Pf Sz9 113mm [id number] Implanted:Qty : 1 on 02/22/2023 by Willie Sheffield MD at [facility] TOTAL JOINT CONSTRUCT Left: Hip EXACTECH [id number] 06/22/2027 190 / [id number] / Head Fem Delta 36mm +7mm [id number] Implanted:Qty : 1 on 02/22/2023 by Willie Sheffield MD at [facility] TOTAL JOINT CONSTRUCT Left: Hip EXACTECH [id number] 06/06/2027 / [id number] / Insurance [facility] ACCESS O MAP Advance Directives For more information, please contact: [phone] * Full Code (Latest Code Status on File) Date Activated Date Inactivated Comments 02/22/2023 10:35 AM 02/23/2023 2:19 PM * Full Code Date Activated Date Inactivated Comments 02/22/2023 6:12 AM 02/22/2023 10:35 AM Care Teams Contracts Officer Relationship Specialty Start Date End Date Quinten Peralta MD [address] [place] [phone] PCP - General Family Medicine 02/22/23
--- OUTSIDE RECORDS SUMMARY | 2025-04-15 12:23 | XMS_ITS | CCD ---
Author Organization Unknown Care Team Providers Care Knockup Worker Name Role Phone Unavailable Primary Care Provider Unavailabl e Unavailable Chronic Care Management Unavaila ble Summary Purpose DataExchange Insurance Providers Payer name Policy type / Coverage type Covered green party ID Effective Begin Date Effective End Date [facility] [id number] Unknown Unknown Family History Family History data not found Medication Administered No Medication Administered data Reason For Visit No Reason For Visit data Medical Equipment No Medical Equipment data Advance Directives No Advance Directive data
--- OUTSIDE RECORDS SUMMARY | 2025-04-15 12:23 | XMS_ITS | Encounter Summary ---
Author Organization [employer] ([place], [place], [place], [place], [place]) Address [address] [place] [address] Care Team Providers Care Wardrobe Specialist Name Role Phone Quinten Peralta MD Primary Care Provider [phone] Encounter Details Date Type Department Care Team (Late st Contact Info) Description 02/21/2023 Surgery Prep [facility] Surgery Department [address] [place] [address] Willie Sheffield MD [address] [facility] 2nd [place] [address] Social History Tobacco Use Types Packs/Day Years [...] on filedocumented in this encounter Care Teams Wardrobe Specialist Relationship Specialty Start Date End Date Quinten Peralta MD [address] [place] [phone] PCP - General Family Medicine 02/22/23 documented as of this encounter
--- OUTSIDE RECORDS SUMMARY | 2025-04-15 12:23 | XMS_ITS | Clinical Summary ---
Author Organization [facility] Address [address] [place] [address] Care Team Providers Care Textbook Associate Name Role Phone Quinten Peralta MD Primary Care Provider [phone] Allergies No known active allergies Medications esomeprazole [...] (12/29/2022): Added automatically from request for surgery [id number] Family History Medical History Relation Name Comments [...] VACCINE 12/20/2024 03/07/2022, , 02/23/2020 Insurance [facility] Care Teams Textbook Associate Relationship Specialty Start Date End Date Quinten Peralta MD [address] [place] [address] PCP - General Family Medicine 10/28/22
== END 2025-04-15 23:59 | disposition home or self-care (01) ==
LOC: RT 12:20
PROVIDERS: PCP Internal Medicine; Visit Provider Nurse Practitioner Family
DX: I48.0 Paroxysmal atrial fibrillation (principal); I48.92 Unspecified atrial flutter; I49.3 Ventricular premature depolarization
CPT/HCPCS: 93270

== ENCOUNTER 2025-05-04 17:37 | Observation (INO) | payer MEDICARE, SELFPAY ==
[2025-05-04] VITALS (8 sets, daily range): BP systolic 112–135; BP diastolic 67–87; PULSE 90–114; RESP 17–22; TEMP 36.2–37; O2SAT 97–100; BMI 28.1
--- OUTSIDE RECORDS SUMMARY | 2025-05-04 17:50 | XMS_ITS | CCD ---
Author Organization Unknown Care Team Providers Care Mover Name Role Phone Unavailable Primary Care Provider Unavailabl e Unavailable Chronic Care Management Unavaila ble Summary Purpose DataExchange Insurance Providers Payer name Policy type / Coverage type Covered libertarian ID Effective Begin Date Effective End Date [facility] [id number] Unknown Unknown Family History Family History data not found Medication Administered No Medication Administered data Reason For Visit No Reason For Visit data Medical Equipment No Medical Equipment data Advance Directives No Advance Directive data
--- OUTSIDE RECORDS SUMMARY | 2025-05-04 17:50 | XMS_ITS | Clinical Summary ---
Author Organization [employer] ([place], [place], [place], [place], [place]) Address [address] [place] [address] Care Team Providers Care Inflated Pad Buffer Name Role Phone Quinten Peralta MD Primary Care Provider [phone] Allergies No known active allergies Medications AZITHROmycin [...] Date Ankur rded Speak language other than Greek at home Not on file 06/09/2023 Want [...] 02/26/2021, 02/23/2020 Medical Devices Implanted Type Area Realty Specialist Device Identifier Shelf Expiration Date Model / Serial / Lot Cup Clstr-Hole Altn Pcg5 52mm 45-465-85 2 - [id number] Implanted:Qty : 1 on 02/22/2023 by Willie Sheffield MD at [facility] TOTAL JOINT CONSTRUCT Left: Hip EXACTECH [id number] 07/26/203252 / [id number] / Liner Ntrl Grp 5 36mm Id - [id number] Implanted:Qty : 1 on 02/22/2023 by Willie Sheffield MD at [facility] TOTAL JOINT CONSTRUCT Left: Hip EXACTECH [id number] 11/24/202736 / [id number] / Stem Fem Pf Sz9 113mm - [id number] Implanted:Qty : 1 on 02/22/2023 by Willie Sheffield MD at [facility] TOTAL JOINT CONSTRUCT Left: Hip EXACTECH [id number] 06/22/2027 / [id number] / Head Fem Delta 36mm +7mm - [id number] Implanted:Qty : 1 on 02/22/2023 by Willie Sheffield MD at [facility] TOTAL JOINT CONSTRUCT Left: Hip EXACTECH [id number] 06/06/2027 / [id number] / Insurance [facility] ACCESS O MAP Advance Directives For more information, please contact: [phone] * Full Code (Latest Code Status on File) Date Activated Date Inactivated Comments 02/22/2023 10:35 AM 02/23/2023 2:19 PM * Full Code Date Activated Date Inactivated Comments 02/22/2023 6:12 AM 02/22/2023 10:35 AM Care Teams Inflated Pad Buffer Relationship Specialty Start Date End Date Quinten Peralta MD [address] [place] [place] [address] PCP - General Family Medicine 02/22/23
--- OUTSIDE RECORDS SUMMARY | 2025-05-04 17:50 | XMS_ITS | Clinical Summary ---
Author Organization [facility] Address [address] [place] [address] Care Team Providers Care Health Tech Name Role Phone Quinten Peralta MD Primary Care Provider [phone] Allergies No known active allergies Medications esomeprazole [...] (12/29/2022): Added automatically from request for surgery [id number] Family History Medical History Relation Name Comments [...] VACCINE (1 of 2) 1991 TDAP/TD VACCINES (1 - Tdap) 07/26/1996 07/25/1996 RSV Vaccine - Adults (1 - 1- dose 75+ series) 2016 COVID-19 Vaccine (3 - Modern a risk series) 05/19/2021 04/21/2021, 07/22/2020, 06/24/2020 ANNUAL WELLNESS VISIT 12/09/2022 INFLUENZA VACCINE 12/20/2024 03/07/2022, , 02/23/2020 [facility] Care Teams Health Tech Relationship Specialty Start Date End Date Quinten Peralta MD [address] [place] [address] PCP - General Family Medicine 10/28/22
--- OUTSIDE RECORDS SUMMARY | 2025-05-04 17:50 | XMS_ITS | Referral Summary ---
Author Organization [employer] ([place], [place], [place], [place], [place]) Address [address] [place] [address] Care Team Providers Care Dental Treatment Coordinator Name Role Phone Quinten Peralta MD Primary Care Provider [phone] Allergies No known active allergies Medications AZITHROmycin [...] Date Ankur rded Speak language other than Montserratian at home Not on file 06/09/2023 Want [...] on file Medical Devices Implanted Type Area Manager Spring Device Identifier Shelf Expiration Date Model / Serial / Lot Cup Clstr-Hole Altn Pcg5 52mm 83-745-92 2 - [id number] Implanted:Qty : 1 on 02/22/2023 by Willie Sheffield MD at [facility] TOTAL JOINT CONSTRUCT Left: Hip EXACTECH [id number] 07/26/203252 / [id number] / Liner Ntrl Grp 5 36mm Id 6 - [id number] Implanted:Qty : 1 on 02/22/2023 by Willie Sheffield MD at [facility] TOTAL JOINT CONSTRUCT Left: Hip EXACTECH [id number] 11/24/2027 / [id number] / Stem Fem Pf Sz9 113mm [id number] Implanted:Qty : 1 on 02/22/2023 by Willie Sheffield MD at [facility] TOTAL JOINT CONSTRUCT Left: Hip EXACTECH [id number] 06/22/2027 190 / [id number] / Head Fem Delta 36mm +7mm [id number] Implanted:Qty : 1 on 02/22/2023 by Willie Sheffield MD at [facility] TOTAL JOINT CONSTRUCT Left: Hip EXACTECH [id number] 06/06/2027 / [id number] / Insurance [facility] ACCESS O MAP Advance Directives For more information, please contact: [phone] * Full Code (Latest Code Status on File) Date Activated Date Inactivated Comments 02/22/2023 10:35 AM 02/23/2023 2:19 PM * Full Code Date Activated Date Inactivated Comments 02/22/2023 6:12 AM 02/22/2023 10:35 AM Care Teams Dental Treatment Coordinator Relationship Specialty Start Date End Date Quinten Peralta MD [address] [place] [address] PCP - General Family Medicine 02/22/23
--- OUTSIDE RECORDS SUMMARY | 2025-05-04 17:50 | XMS_ITS | Encounter Summary ---
Author Organization [employer] ([place], [place], [place], [place], [place]) Address [address] [place] [address] Care Team Providers Care Assembler Mechanical Ordnance Name Role Phone Quinten Peralta MD Primary Care Provider [phone] Encounter Details Date Type Department Care Team (Late st Contact Info) Description 02/21/2023 Surgery Prep [facility] Surgery Department [address] [place] [address] Willie Sheffield MD [address] [facility] 2nd [place] [address] Social History Tobacco Use Types Packs/Day Years [...] on filedocumented in this encounter Care Teams Assembler Mechanical Ordnance Relationship Specialty Start Date End Date Quinten Peralta MD [address] [place] [phone] PCP - General Family Medicine 02/22/23 documented as of this encounter
--- NOTE | 2025-05-04 18:02 | ECG_ITS ---
APPROVED REPORT Exam: Resting ECG HR:101 bpm ECG Measurements Heart Rate 101 AXES QRSd 102 QRS 84 QT 363 T 26 QTc 421 Conclusion ATRIAL FIBRILLATION WITH RAPID VENTRICULAR RESPONSE MODERATE ST DEPRESSION [0.05+ mV ST DEPRESSION] ABNORMAL ECG UNCONFIRMED REPORT Electronically signed by : CRASON HERNANDEZ, 05/05/2025 00:17:57
--- NOTE | 2025-05-04 18:09 | CT_ITS ---
PROCEDURE INFORMATION: Exam: CT Abdomen And Pelvis With Contrast Exam date and time: 05/04/2025 7:30 PM Age: 85 years old Clinical indication: Abdominal pain; Additional info: Llq tenderness TECHNIQUE: Imaging protocol: Computed tomography of the abdomen and pelvis with contrast. 3D rendering (Not supervised by radiologist): MIP and/or 3D reconstructed images were created by the technologist. Total images: 1263 Radiation optimization: All CT scans at this facility use at least one of these dose optimization techniques: automated exposure control; mA and/or kV adjustment per patient size (includes targeted exams where dose is matched to clinical indication); or iterative reconstruction. Contrast material: ISOVUE; Contrast volume: 70 ml; Contrast route: IV; COMPARISON: CR XR HIP LT 2-3V W/PELVIS 02/28/2025 2:01 PM FINDINGS: Lungs: Lung bases are clear. Heart: Normal heart size. Diaphragm: Small hiatal hernia. Liver: Nonenlarged liver with mild steatosis. Calcified liver granuloma. No mass. Gallbladder and biliary ducts: Status post cholecystectomy. No biliary ductal dilatation. Pancreas: Stable 17 mm low-attenuation/cystic lesion in the pancreatic head/uncinate process. No acute pancreatitis. Spleen: Nonenlarged spleen with calcified granuloma. Adrenal glands: Normal. No mass. Kidneys and ureters: 7 cm right renal cyst. 2.4 cm left renal cyst. No nephrolithiasis or hydronephrosis. Bilateral perinephric fat stranding. Distal ureters are obscured by metallic artifact. Stomach and bowel: Unremarkable stomach and duodenum. No ileus or bowel obstruction. Unremarkable small bowel. Moderate sigmoid diverticulosis. Sigmoid colonic wall thickening with adjacent pericolonic edema. No pericolonic abscess or extraluminal free air. Unremarkable rectum. Appendix: Normal appendix. Intraperitoneal space: Unremarkable. No free air. No significant fluid collection. Vasculature: Moderate atherosclerotic vascular disease. Nonaneurysmal abdominal aorta. Major abdominal vessels enhance appropriately. Pelvic phleboliths. Lymph nodes: Unremarkable. No enlarged lymph nodes. Urinary bladder: The bladder is obscured by metallic artifact. Reproductive: Prostatomegaly, mostly obscured by metallic artifact. Bones/joints: Severe degenerative changes of the thoracolumbar spine. Mild lumbar dextrocurvature. Bilateral total hip arthroplasty. Soft tissues: Diastasis of the rectus fascia. IMPRESSION: 1. Acute sigmoid diverticulitis/colitis. No pericolonic abscess or extraluminal free air. 2. Multiple additional chronic and incidental findings. COMMENTS: Consistent with the [employer]'s Incidental Findings Committee white paper (J Am Dora Radiol 2018): Any incidental renal lesion less than 1 cm or classified as too small to characterize, or any incidental cystic renal lesion characterized as simple-appearing, is likely benign. No follow-up imaging is recommended for these lesions per consensus recommendations based on imaging criteria.
--- NOTE | 2025-05-04 18:09 | CT_ITS ---
PROCEDURE INFORMATION: Exam: CTA Chest With Contrast Exam date and time: 05/04/2025 7:30 PM Age: 85 years old Clinical indication: Shortness of breath; Additional info: Cp/shortness of breath TECHNIQUE: Imaging protocol: Computed tomographic angiography of the chest with contrast. Exam focused on the arteries. 3D rendering (Not supervised by radiologist): MIP and/or 3D reconstructed images were created by the technologist. Total images: 768 Radiation optimization: All CT scans at this facility use at least one of these dose optimization techniques: automated exposure control; mA and/or kV adjustment per patient size (includes targeted exams where dose is matched to clinical indication); or iterative reconstruction. Contrast material: ISOVUE; Contrast volume: 70 ml; Contrast route: INTRAVENOUS (IV); COMPARISON: CT CHEST WO CON 02/02/2023 4:51 PM FINDINGS: Pulmonary arteries: Adequate contrast opacification of the pulmonary arteries. The main pulmonary artery is normal in caliber. No acute pulmonary emboli. Aorta: Atherosclerotic thoracic aorta left without aneurysm or dissection. Lungs: The trachea and main bronchi are patent. Dependent atelectasis along the bilateral major fissures and lung bases. No concerning infiltrate or airspace consolidation. No pulmonary mass. Minor upper lobe centrilobular emphysema. There are few scattered pulmonary micro nodules, not exceeding 3 mm. Calcified pulmonary granuloma. Pleural spaces: Unremarkable. No pneumothorax. No pleural effusion. Heart: Normal heart size. Trace pericardial fluid. Mediastinal space: No mediastinal mass or hematoma. Lymph nodes: Partially calcified hilar lymph nodes compatible with remote granulomatous disease. Diaphragm: Small hiatal hernia. Intraperitoneal space: Upper abdominal findings described separately. Bones/joints: Moderate degenerative changes throughout the thoracic spine. Mild thoracic levocurvature. Soft tissues: Unremarkable. IMPRESSION: 1. No acute pulmonary emboli. 2. No acute intrathoracic process. 3. Remote calcified granulomatous disease. 4. There are few scattered noncalcified pulmonary micro nodules, most likely granulomatous, not exceeding 3 mm.For patients at low risk (minimal or absent history of smoking and of other known risk factors), no routine follow-up is indicated. For patients at high risk (history of smoking or of other known risk factors), consider optional CT Chest at 12 months. (Reference: Domingo) REFERENCES: Domingo Freeman et al. Guidelines for Management of Incidental Pulmonary Nodules Detected on CT Images: From the Fleischner Society 2017. Radiology. 2017;284(1):228-243.
--- NOTE | 2025-05-04 18:13 | [facility].EDGENADL ---
Discharge Plan Disposition Patient Disposition: Admitted Clinical Impressions Clinical Impression: Diverticulitis, Sinus pause Discharge ED Provider: Rosi Partida General Adult HPI General Chief complaint: Weakness Stated complaint: dehydration,nausea,weak,pain Time Seen by Provider: 05/04/25 17:44 Mode of Arrival: Ambulatory Source of Information: Patient, Spouse and Relative Description of Symptoms (Recalled from ER Triage Doc. by RN): patient presents for chief complaint of overall weakness and malaise. patient is more weaker that normal. carl stated he staretd feeling bad around thanksgiving and it has progressed ever since. patient states he is a little short of breath, has been chilled at home but hasnt actually taken his temp. History of Present Illness HPI narrative: Patient is an 85-year-old gentleman who presents to the emergency department with generally feeling weak tired with abdominal pain. He is at bedside helping provide history. She states that patient has been having abdominal pain since after Thanksgiving. Patient has having lack of appetite worsening pain with eating. Patient initially had some vomiting a couple weeks ago which resolved then patient had diarrhea which has now resolved. Patient is reporting lower abdominal pains specifically on the left lower quadrant. Denies any fevers. Patient denies any chest pain but does report shortness of breath with exertion. Patient states that he does have A-fib but has not been taking anticoagulation. Patient is on metoprolol. Related Data Home Medications ?Medication ?Instructions ?Recorded ?Confirmed meloxicam 15 mg tablet 15 mg PO DAILY 04/29/25 05/04/25 [id number] 1 cap PO TID 05/04/25 05/04/25 (pork)36,000-114,000-180k unit capsule,del rel (Creon) rifaximin 550 mg tablet (Xifaxan) 550 mg PO DAILY 05/04/25 05/04/25 Previous Rx's ?Medication ?Instructions ?Recorded furosemide 20 mg tablet (Lasix) 20 mg PO DAILY PRN edema #60 tabs 04/02/25 allopurinol 300 mg tablet 300 mg PO DAILY #30 tabs 04/03/25 metoprolol succinate 25 mg 25 mg PO DAILY #30 tabs 04/15/25 tablet,extended release 24 hr (Toprol XL) Allergies Allergy/AdvReac Type Severity Reaction Status Date / Time No Known Allergies Allergy Verified 04/29/25 15:04 [facility] Disclaimer: The information contained in this section may have been updated after the patient was seen, as this information can be updated by other users. Medical History Sinus tachycardia SOB (shortness of breath) on exertion Hypertension Paroxysmal A-fib Osteoarthritis of left hip GERD (gastroesophageal reflux disease) Surgical History History of total left hip arthroplasty History of cholecystectomy History of esophagogastroduodenoscopy (EGD) History of colonoscopy S/P total right hip arthroplasty Family History Father , at age 83 from dementia complications Dementia Mother , at age 83 from pneumonia Pneumonia Social History (Updated 05/04/25 @ 22:09 by Renee Del Rosario RN) Smoking Status: Never smoker smoking status start date: Age 21 through age 66 years smoked: 46 smoking status stop date: 2007 second hand exposure: No alcohol intake: never substance use type: denies use current occupational status: retired Travel in the last 8 weeks?: None household members: spouse housing: house lives independently: No marital status: education level: high school service: Yes senior living: No current occupational exposures/hazards: No caffeine: Yes 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 special paris needs: No agree to transfusion: No do you feel safe at home: Yes victim of physical abuse: No victim of emotional abuse: No victim of sexual abuse: No would you like helpful sources: No Have you lived/traveled outside [place] in past 30 days?: No Contact w/someone who lives/traveled outside [place] past 30 days?: No Exposure to someone with infectious disease in past 14 days?: No Do you have a fever (greater than 100.4 F or 38 C)?: No Have you tested positive for COVID-19?: No Exposed to someone with COVID-19 in past 14 days?: No Do you have a sore throat?: No Do you have a cough?: No Do you have any weakness?: No Are you experiencing any nausea/vomitting?: No Do you have any diarrhea?: No Are you experiencing any unusual bleeding?: No Do you have any muscle aches/pain?: No Do you have any abdominal pain?: No Are you experiencing loss of taste or smell?: No Other Medical History Have you received the Flu Vaccine for this season: No Have you received the Pneumonia Vaccine: No ROS Obtained: Yes All systems reviewed & no additional complaints except as documented and Yes Systems reviewed as appropriate & no additional complaints except as documented Physical Exam General General appearance: alert and in no apparent distress Head Head exam: atraumatic, normocephalic and normal inspection Eye Eye exam: Present normal appearance, PERRL and EOMI; Absent scleral icterus ENT ENT exam: Present normal exam and normal external ear exam Neck Neck exam: Present normal inspection and full ROM Chest Chest inspection: Present normal inspection and symmetric chest wall rise Respiratory Respiratory exam: Present normal lung sounds bilaterally; Absent respiratory distress or wheezes Cardiovascular Cardiovascular exam: Present regular rate, normal rhythm and normal heart sounds Abdominal Exam Abdominal exam: Present soft, distention and tenderness (suprapubic and LLQ tenderness); Absent guarding or rebound Extremities Exam Extremities exam: Present normal inspection and full ROM Back Exam Back exam: Present normal inspection and full ROM Neurological Exam Neurological exam: Present alert and oriented X3 Psychiatric Psychiatric exam: Present normal affect and normal mood Skin Skin exam: Present warm and dry Medical Decision Making Medical Records Medical records reviewed: Yes I reviewed the patient's medical records. Screening: Per USPSTF and CDC recommendations, given the prevalence of disease in our region, it is our hospital?s policy to screen for HIV and viral Hepatitis for all patients aged 18 and over and those with ongoing risk factors. Georges Inquiry Pt receiving controlled substance: No Vital Signs: 05/04/25 17:51 05/04/25 17:57 05/04/25 18:00 Temperature 98.6 F Temperature Source Oral Pulse Rate 114 H 99 H Pulse Rate [Right Radial] 97 H Respiratory Rate 21 18 17 Blood Pressure 121/76 132/79 Blood Pressure [Right Arm] 121/76 Blood Pressure Mean [Right Arm] 91 Blood Pressure Source [Right Arm] Automatic Cuff 02 Sat by Pulse Oximetry 97 99 97 Oxygen Delivery Method Room Air 05/04/25 18:30 05/04/25 21:22 Temperature Temperature Source Pulse Rate Pulse Rate [Right Radial] Respiratory Rate 22 Blood Pressure 117/67 Blood Pressure [Right Arm] Blood Pressure Mean [Right Arm] Blood Pressure Source [Right Arm] 02 Sat by Pulse Oximetry Oxygen Delivery Method Room Air Lab Data Lab results reviewed: Yes I reviewed the patient's lab results. Lab Results 05/04/25 18:14: WBC 9.7, RBC 4.10 L, Hgb 11.5 L, Hct 35.2 L, MCV 85.9, MCH 28.0, MCHC 32.7, RDW 13.9, Plt Count 291, MPV 8.7, Neut % (Auto) 77.5, Lymph % (Auto) 11.3, Alexander % (Auto) 8.9, Eos % (Auto) 1.6, Baso % (Auto) 0.3, Neut # (Auto) 7.5, Lymph # (Auto) 1.1, Alexander # (Auto) 0.9, Eos # (Auto) 0.2, Baso # (Auto) 0.0, Sodium 133 L, Potassium 3.7, Chloride 95 L, Carbon Dioxide 25, Anion Gap 16.7 H, BUN 24 H, Creatinine 1.50 H, Estimated Creat Clear 46, Estimated GFR 45 L, Est GFR ( Amer) 54 L, Glucose 100, Calcium 9.4, Total Bilirubin 0.9, AST 35, ALT 21, Alkaline Phosphatase 96, Troponin I 0.02, C-Reactive Protein 125.5 H, NT-Pro-B Natriuret Pep 1910 H, Total Protein 7.5, Albumin 3.9, Globulin 3.6 H, Albumin/Globulin Ratio 1.1, Lipase 573 H, TSH 2.65, Free T4 1.49, SARS-CoV-2 (PCR) Not detected, Influenza Type A (PCR) Not detected, Influenza Type B (PCR) Not detected, RSV (PCR) Not detected, Rhinovirus (PCR) Not detected 05/04/25 21:05: Troponin I 0.02 05/04/25 18:14 05/04/25 18:14 Orders (Tests/Meds): ED MEDICATIONS Generic Name Dose Route Start Last Admin Trade Name Freq PRN Reason Stop Dose Admin Enoxaparin Sodium 90 mg 05/04/25 21:30 05/04/25 23:36 Enoxaparin 100mg/Ml Syringe 1 mg/kg (90 mg) 06/03/25 21:29 90 mg SUBCUT Administration Q12H CABRERA Piperacillin Sod/Tazobactam 50 mls @ 100 mls/hr 05/05/25 04:00 Sod 3.375 gm/ Sodium Chloride IV 05/15/25 03:59 Q6H CABRERA Sodium Chloride 10 ml 05/04/25 19:32 05/04/25 19:32 Sodium Chloride 0.9% 10ml Syr (Rad Only) IV 06/03/25 19:31 10 ml NEEDED PRN Administration Maintain IV Site Discontinued Medications Generic Name Dose Route Start Last Admin Trade Name Freq PRN Reason Stop Dose Admin Piperacillin Sod/Tazobactam 100 mls @ 200 mls/hr 05/04/25 20:23 05/04/25 22:14 Sod 4.5 gm/ Sodium Chloride IV 05/04/25 20:52 Infused ONCE ONE Infusion Iopamidol 70 ml 05/04/25 19:32 05/04/25 19:33 Iopamidol-370 (76%);100ml Bottle IV 05/04/25 19:33 70 ml ONCE ONE Administration Metoprolol Tartrate 25 mg 05/04/25 20:21 05/04/25 21:08 Metoprolol Tartrate 50mg Tablet PO 05/04/25 20:22 25 mg ONCE ONE Administration Sodium Chloride 50 ml 05/04/25 19:32 05/04/25 19:33 0.9 % Sodium Chloride 50 Ml Vial IV 05/04/25 19:33 50 ml ONCE ONE Administration ORDERS Category Date Time Status CT abdomen pelvis w con Stat Cat Scan 05/04/25 18:[address] angio chest PE protocol Stat Cat Scan 05/04/25 18:09 Completed POCUS Point of Care (ER Only) Stat Exams 05/04/25 20:14 Completed BNP [NT Pro Brain Natriuretic Pep.] Stat Lab 05/04/25 18:14 Completed CBC w/Auto Diff [Complete Blood Count Auto Diff] Stat Lab 05/04/25 18:14 Completed CMP [Comprehensive Metabolic Panel] Stat Lab 05/04/25 18:14 Completed CRP [C-Reactive Protein] Stat Lab 05/04/25 18:14 Completed Complete Blood Count Auto Diff AMLAB Lab 05/05/25 06:00 Ordered Comprehensive Metabolic Panel AMLAB Lab 05/05/25 06:00 Ordered Free T4 (Free Thyroxine) Stat Lab 05/04/25 18:14 Completed Lipase Stat Lab 05/04/25 18:14 Completed Mini Respiratory Panel Stat Lab 05/04/25 18:14 Completed TSH [Thyroid Stimulating Hormone] Stat Lab 05/04/25 18:14 Completed Trop I [Troponin I] Stat Lab 05/04/25 18:14 Completed Troponin I Q3H Lab 05/04/25 21:05 Completed UA [Urinalysis and Microscopic] Stat Lab 05/04/25 18:11 Ordered Blood Culture Stat Micro 05/04/25 18:38 Received Urine Culture Stat Micro 05/04/25 18:11 Ordered Medical Decision Narrative: Patient is a 85-year-old male with a past medical history of A-fib who presented to the emergency department with concern for weakness, feeling tired, shortness of breath and abdominal pain. On arrival, patient was tachycardic, normotensive afebrile. Vital signs were otherwise unremarkable. Differential includes but not limited to: Diverticulitis, colitis, pancreatitis, ACS/NC, arrhythmia, dehydration, electrolyte abnormalities, amongst others. Patient's labs were reviewed and interpreted by myself: CBC showed no leukocytosis, hemoglobin was stable. CMP was unremarkable. Initial troponin 0.02, second troponin 0.02. CRP elevated at 125. BNP elevated at 1910. Lipase 573. Thyroid studies unremarkable. Patient's initial EKG showed A-fib. While in the emergency department, patient appeared to be flipping in and out of A-fib and normal sinus rhythm however when patient was in normal sinus rhythm he appeared to be having multiple sinus pauses. Sinus pauses were significant in length. I did send the EKG to Dr. Ponce fence maker and he felt that patient warranted admission for further management of these. Patient was given 25 of tartrate per cardiology. Patient CT scan showed diverticulitis. Given concern for patient's pancreatitis, diverticulitis and sinus pauses on EKG I felt that patient warranted admission. Patient does not have a gallbladder for unlikely to be secondary to gallbladder disease. Patient was given Zosyn for diverticulitis and patient was ultimately admitted to the hospital for further workup and evaluation. Critical Care Critical Care Time Critical Care Time: No
[2025-05-04 18:23] LABS: Coronavirus 19, PCR Not Detected (NotDetected); Influenza A, PCR Not Detected (NotDetected); Influenza B, PCR Not Detected (NotDetected)
[2025-05-04 18:26] LABS: Hematocrit 35.2 % (42.0-52.0); Hemoglobin 11.5 g/dL (14.1-18.0); Immature Granulocytes % 0.4 %; Mean Corpuscular HGB Conc 32.7 g/dL (31.8-35.4); Mean Corpuscular Hemoglobin 28.0 pg (27.0-31.2); Mean Corpuscular Volume 85.9 fl (80-94); Nucleated Red Blood Cells % 0 %; Platelet Count 291 K/mm3 (142-424); Red Blood Count 4.10 M/mm3 (4.60-6.20); Red Cell Distribution Width-SD 43.6 fL; White Blood Count 9.7 K/mm3 (4.8-10.8)
--- NOTE | 2025-05-04 18:34 | PC.NURSE ---
Jaquan bernard with obtaining first set of cultures through PIV insertion. First set obtained during IV insertion.
[2025-05-04 18:38] LABS: Alanine Aminotransferase 21 U/L (12-78); Albumin Level 3.9 g/dl (3.5-5.0); Albumin/Globulin Ratio 1.1 (1.1-1.8); Alkaline Phosphatase 96 U/L (38-126); Anion Gap 16.7 mEq/L (5-15); Aspartate Amino Transferase 35 U/L (17-59); Bilirubin,Total 0.9 mg/dl (0.2-1.3); Blood Urea Nitrogen 24 mg/dl (9-20); Calcium 9.4 mg/dl (8.4-10.2); Carbon Dioxide 25 mmol/L (22.0-30.0); Chloride 95 mmol/L (98-107); Creatinine Clearance Estimated 46 mL/min (50-200); Creatinine,Serum 1.50 mg/dl (0.66-1.25); Estimated Glomerular Filt Rate 45 ml/min (>60); GFR (African American) 54 ML/MIN (>60); Globulin 3.6 g/dL (1.3-3.2); Glucose 100 mg/dl (74-100); Lipase 573 U/L (23-300); Potassium 3.7 mmoL/L (3.5-5.1); Sodium 133 mmol/L (136-145); Total Protein,Serum 7.5 g/dl (6.3-8.2)
[2025-05-04 18:43] LABS: C-Reactive Protein 125.5 mg/L (0-4)
[2025-05-04 18:46] LABS: NT Pro Brain Natriuretic Pep. 1910 pg/mL (0-450)
[2025-05-04 18:50] LABS: Troponin I 0.02 ng/ml (0.00-0.034)
[2025-05-04] MEDS: SODIUM CHLORIDE 0.9% 10ML SYR (RAD ONLY) 10 ML IV (19:32)
[2025-05-04] MEDS: 0.9 % SODIUM CHLORIDE 50 ML VIAL IV (19:33)
[2025-05-04] MEDS: IOPAMIDOL-370 (76%);100ML BOTTLE 70 ML IV (19:33)
--- NOTE | 2025-05-04 20:04 | ECG_ITS ---
APPROVED REPORT Exam: Resting ECG HR:74 bpm ECG Measurements Heart Rate 74 AXES LA 156 P 83 QRSd 105 QRS 85 QT 391 T 53 QTc 418 Conclusion SINUS RHYTHM WITH FREQUENT SUPRAVENTRICULAR PREMATURE COMPLEXES ABNORMAL RHYTHM ECG UNCONFIRMED REPORT Electronically signed by : CARSON HERNANDEZ, 05/05/2025 00:17:36
[2025-05-04 20:55] LABS: Free T4 (Free Thyroxine) 1.49 ng/dl (0.78-2.19)
[2025-05-04] MEDS: PIPERACILLIN/TAZO 4.5 GM in 0.9 % SODIUM CHLORIDE 100 ML IV (21:07)
[2025-05-04] MEDS: METOPROLOL TARTRATE 50MG TABLET 25 MG PO (21:08)
[2025-05-04 21:10] LABS: Thyroid Stimulating Hormone 2.65 uIU/mL (0.465-4.68)
--- NOTE | 2025-05-04 21:32 | PC.NURSE ---
report called to Sarah DUDLEY
[2025-05-04 21:52] LABS: Troponin I 0.02 ng/ml (0.00-0.034)
--- NOTE | 2025-05-04 22:09 | PC.NURSE ---
Pt arrived on the floor at 2145 via w/c. pt walked to the bed . Daughter and are at the Pt bedside. SANTIAGO JAUREGUI RN
[2025-05-05] VITALS: BP 111/66; PULSE 107; PULSE 80; RESP 16; TEMP 36.7; O2SAT 93
--- NOTE | 2025-05-05 01:30 | P.HP_ITS ---
<Statement entered by Alexis Cordero MD - 05/05/25 12:47> Rounded on patient after nurse practitioner. Personally examined and interviewed patient. Agree with exam findings and care plan as documented. History of Present Illness *Admission Date: 05/04/25 *Reason for visit:: abd pain, weakness *History of present illness: 85-year-old male patient presents to ER with reports of weakness and GI symptoms since shortly after Thanksgiving. After Thanksgiving he developed some abdominal pain and vomiting. Once the vomiting subsided he began having diarrhea. He states he had that for a couple of days then it stopped and then it returned again for a couple more days. He is somewhat of a poor historian so obtaining history is difficult. is no longer with him at the bedside. He has not had any diarrhea or vomiting in the last week. Still has abdominal pain. reported to the ER lack of appetite however he states he has been eating some just not very much. He is unable to tell me if food makes the pain worse or if he just does not have an appetite. He denies fever chills or bodyaches. He has had some shortness of breath with activity. Denies chest pain. Workup in the ER showed unremarkable CBC. BUN/creatinine 24/1.5 however this appears to be his baseline. CRP 125, proBNP 1910 and a lipase of 573. Urinalysis is unremarkable CT abdomen pelvis showed some acute diverticulitis. He was also found to be in an irregular rhythm. EKGs done in the ER show he goes between sinus rhythm and atrial fibs. Atrial fibrillation is 101 per EKG. While in sinus rhythm he is having pauses lasting approximately 2 seconds. His sinus rhythm rate is around 74. ER physician did discuss with cardiology. Plan to monitor on telemetry tonight and he will see in the morning for possible pacemaker placement. Patient is supposed to be on Eliquis for his atrial fibs however he stopped taking that about 6 to 8 months ago because it caused his legs to break out . Unsure if this is bruising he is referring to or actually a rash. [facility] Disclaimer: The information contained in this section may have been updated after the patient was seen, as this information can be updated by other users. Medical History Sinus tachycardia SOB (shortness of breath) on exertion Hypertension Paroxysmal A-fib Osteoarthritis of left hip GERD (gastroesophageal reflux disease) Surgical History History of total left hip arthroplasty History of cholecystectomy History of esophagogastroduodenoscopy (EGD) History of colonoscopy S/P total right hip arthroplasty Family History Father Dementia Mother Pneumonia Social History Smoking Status: Never smoker smoking status start date: Age 21 through age 66 years smoked: 46 smoking status stop date: 2007 second hand exposure: No alcohol intake: never substance use type: denies use current occupational status: retired Travel in the last 8 weeks?: None household members: spouse housing: house lives independently: No marital status: education level: high school service: Yes group home: No current occupational exposures/hazards: No caffeine: Yes paris/pentecostal: [employer] special paris needs: No agree to transfusion: No do you feel safe at home: Yes victim of physical abuse: No victim of emotional abuse: No victim of sexual abuse: No would you like helpful sources: No Have you lived/traveled outside [place] in past 30 days?: No Contact w/someone who lives/traveled outside [place] past 30 days?: No Exposure to someone with infectious disease in past 14 days?: No Do you have a fever (greater than 100.4 F or 38 C)?: No Have you tested positive for COVID-19?: No Exposed to someone with COVID-19 in past 14 days?: No Do you have a sore throat?: No Do you have a cough?: No Do you have any weakness?: No Are you experiencing any nausea/vomitting?: No Do you have any diarrhea?: No Are you experiencing any unusual bleeding?: No Do you have any muscle aches/pain?: No Do you have any abdominal pain?: No Are you experiencing loss of taste or smell?: No Other Medical History Have you received the Flu Vaccine for this season: Yes Have you received the Pneumonia Vaccine: Yes Review of Systems Constitutional Constitutional: Denies body ache(s), Denies chills and Denies fever(s) Eyes Eyes: Denies blurry vision and Denies eye pain ENT Ears, Nose, Mouth, and Throat: Denies dizziness and Reports hearing loss *Cardiovascular Cardiovascular: Denies chest pain and Reports dyspnea on exertion *Respiratory Respiratory: Denies chest congestion, Denies cough and Reports dyspnea on exertion *Gastrointestinal Gastrointestinal: Reports abdominal pain, Reports diarrhea, Reports nausea and Reports vomiting *Genitourinary Genitourinary: Denies dysuria and Denies oliguria *Musculoskeletal Musculoskeletal: Denies muscle weakness *Neurologic Neurologic: Denies confusion and Denies dizziness Psychiatric Psychiatric: Denies confusion Meds Home Medications and Allergies Home Medications ?Medication ?Instructions ?Recorded ?Confirmed ?Type furosemide 20 mg tablet (Lasix) 20 mg PO DAILY PRN lopez ma #60 tabs 04/02/25 05/04/25 Rx allopurinol 300 mg tablet 300 mg PO DAILY #30 tabs 05/04/25 Rx metoprolol succinate 25 mg 25 mg PO DAILY #30 tabs 05/04/25 Rx tablet,extended release 24 hr (Toprol XL) meloxicam 15 mg tablet 15 mg PO DAILY 04/29/2504/21 History [id number] 1 cap PO TID 05/04/25 History (pork)36,000-114,000-180k unit capsule,del rel (Creon) rifaximin 550 mg tablet (Xifaxan) 550 mg PO DAILY 04/2105/04/25 History New Prescriptions to Start Prescriptions: Allergies Allergy/AdvReac Type Severity Reaction Status Date / Time No Known Allergies Allergy Verified 04/29/25 15:04 Exam Data for Last 24 hours Vital signs and Labs for Last 24 Hours: Temp Pulse Resp BP Pulse Ox O2 Del Method 98.1 F 107 H 16 111/66 93 L Room Air 05/05/25 00:00 05/05/25 00:00 05/05/25 00:00 05/05/25 00:00 05/05/25 00:00 05/05/25 00:00 Laboratory Results - last 24 hr 05/04/25 18:14: WBC 9.7, RBC 4.10 L, Hgb 11.5 L, Hct 35.2 L, MCV 85.9, MCH 28.0, MCHC 32.7, RDW 13.9, Plt Count 291, MPV 8.7, Neut % (Auto) 77.5, Lymph % (Auto) 11.3, [place] % (Auto) 8.9, Eos % (Auto) 1.6, Baso % (Auto) 0.3, Neut # (Auto) 7.5, Lymph # (Auto) 1.1, [place] # (Auto) 0.9, Eos # (Auto) 0.2, Baso # (Auto) 0.0, Sodium 133 L, Potassium 3.7, Chloride 95 L, Carbon Dioxide 25, Anion Gap 16.7 H, BUN 24 H, Creatinine 1.50 H, Estimated Creat Clear 46, Estimated GFR 45 L, Est GFR ( Amer) 54 L, Glucose 100, Calcium 9.4, Total Bilirubin 0.9, AST 35, ALT 21, Alkaline Phosphatase 96, Troponin I 0.02, C-Reactive Protein 125.5 H, NT-Pro-B Natriuret Pep 1910 H, Total Protein 7.5, Albumin 3.9, Globulin 3.6 H, Albumin/Globulin Ratio 1.1, Lipase 573 H, TSH 2.65, Free T4 1.49, SARS-CoV-2 (PCR) Not detected, Influenza Type A (PCR) Not detected, Influenza Type B (PCR) Not detected, RSV (PCR) Not detected, Rhinovirus (PCR) Not detected 05/04/25 21:05: Troponin I 0.02 I & O for Last 24 hours: Intake & Output 05/02/25 05/03/25 05/04/25 05/05/25 23:59 23:59 23:59 23:59 Intake Total 100 / 160 60 / 60 Balance 100 / 160 60 / 60 Weight 88.904 kg Constitutional Constitutional: no acute distress *Routine HEENT Exam Head: Present normocephalic and atraumatic Eye: Present PERRL ENT: Present mucous membranes moist *Routine Neck Exam Neck: Present supple *Routine Respiratory Exam Respiratory: Present CTA bilaterally *Routine Cardiovascular Exam Cardiovascular: Present RRR, Normal S1 and Normal S2 *Routine Abdominal Exam Abdominal: Present soft, normoactive bowel sounds and tenderness (Tenderness left lower quadrant) *Routine Rectal Exam Rectal:: deferred *Routine Genitalia Exam Genitalia:: deferred *Routine Extremities Exam Extremities: Present edema and pulses intact *Routine Skin Exam Skin: Present dry and warm *Routine Neurological Exam Neurological: Present alert, oriented X3 and moving all extremities H&P: Result Imaging and Cardiology CT scan - abdomen: Status: final report Additional comments: Acute sigmoid diverticulitis/colitis. No pericolonic abscess or extraluminal free air. CT scan - chest: Status: final report Additional comments: No acute pulmonary emboli. No acute intrathoracic process. Few scattered no ncalcified pulmonary micronodules Assessment and Plan *Assessment and plan (1) Acute diverticulitis: Status: Acute Category: Medical Code(s): K57.92 - Diverticulitis of intestine, part unspecified, without perforation or abscess without bleeding (2) Paroxysmal A-fib: Status: Acute Category: Medical Code(s): I48.0 - Paroxysmal atrial fibrillation (3) Sinus pause: Status: Acute Category: Medical Code(s): I45.5 - Other specified heart block (4) SOB (shortness of breath) on exertion: Status: Acute Category: Medical Code(s): R06.02 - Shortness of breath (5) Hypertension: Status: Acute Qualifiers: Hypertension type: unspecified Qualified Code(s): I10 - Essential (primary) hypertension Category: Medical Code(s): I10 - Essential (primary) hypertension Plan Patient presented to the ER with multiple complaints. He is a poor historian so gather information is difficult. He reports some episodes of nausea vomiting and diarrhea since . Sounds like they last a couple days then resolved and then returned. He has some left lower quadrant abdominal pain states he has not been eating very much. After discussion with the ER physician in light of his CT findings of acute diverticulitis/colitis I have agreed to admit the patient for further workup and treatment. Acute diverticulitis?patient received it appears he has been to see GI recently for similar complaints but is also noticed that he reported some bloating, belching, weight loss of about 10 pounds and rectal bleeding. He was placed on Creon and Xifaxan and they planned for endoscopy. That has not been done yet. Zosyn in the ER and we will continue that on the floor. Will also start him on Protonix. I will hold off on IV fluids at this time, I suspect there is some degree of heart failure as his BNP is elevated and he had does have slight edema in the ankles and some shortness of breath with activity. His vital signs are stable and BUN and creatinine are at about his baseline so he does not appear to be dehydrated. He does have a slightly elevated lipase but no CT evidence of pancreatitis. This may be simply from vomiting. Paroxysmal A-fib/sinus pause?patient is found to be in and out of atrial Fib and sinus rhythm. He had been prescribed Eliquis for his atrial fibs however stopped taking that about 6 to 8 months ago because it caused his legs to break out . He had a loop recorder done May 02 which showed predominantly atrial fibs with a rate up to 148. Will start him on anticoagulation and monitor on telemetry. While in sinus rhythm he was noted to have pauses lasting about 2 seconds. This finding was discussed with cardiology in the emergency department. He was given metoprolol and plan for consultation in the morning with possible pacemaker placement. So we will anticoagulate with Lovenox versus Eliquis in preparation for procedure. He will be n.p.o. after midnight. Shortness of breath on exertion-I do not see heart failure listed in his office records however he does have some ankle edema, elevated BNP and shortness of breath on exertion. Medicine record shows he is on Lasix 20 mg daily. Last echocardiogram in March 2025 showed normal biventricular systolic function. LVEF of 55%. No valve pathology. Right ventricle is mildly dilated right ventricular systolic function is normal. There is a small anterior pericardial effusion present which appears to have also been present in 2022. I have not started fluids for his diverticulitis due to concerns for heart failure and he does not appear to be dry. Will also hold off on starting Lasix until his home dose is verified. Hypertension?Currently this is stable. Will resume his metoprolol in light of his atrial fib.
[2025-05-05 02:22] LABS: Microscopic, Urine URINE MICROSCOPIC (MICROSCOPIC)
[2025-05-05 02:31] LABS: Bilirubin,Urine Negative (Negative); Color,Urine YELLOW (Yellow); Glucose,Urine (UA) Negative (Negative); Ketones,Urine Negative (Negative); Leukocyte Esterase,Urine Negative (Negative); PH,Urine 6.0 (5.0-8.5); Protein,Urine Negative (Negative); Specific Gravity, Urine 1.020 (1.005-1.030); Urobilinogen,Urine 0.2 EU/dl (0.2)
[2025-05-05] MEDS: PIPERCILLIN/TAZO 3.375 GM in 0.9 % SODIUM CHLORIDE 50 ML IV ×2 (03:45→10:42)
[2025-05-05 04:00] VITALS: BP 129/75; PULSE 100; PULSE 85; RESP 18; TEMP 36.6; O2SAT 96; BMI 28.0
--- NOTE | 2025-05-05 06:01 | PC.NURSE ---
PT was a new admit on the floor tonight. Pt is on Room air, do notice Accessory muscles being used form time to time while he is breathing. Pt has Afib RVR. Pt was given Lovenox last evening. has a 20 G in his Left A/C. received Piperacillin Iv medication over night. Call light within reach and Wheels on the bed are locked for his safety. SANTIAGO JAUREGUI RN
[2025-05-05 06:49] LABS: Hematocrit 34.1 % (42.0-52.0); Hemoglobin 11.1 g/dL (14.1-18.0); Immature Granulocytes % 0.4 %; Mean Corpuscular HGB Conc 32.6 g/dL (31.8-35.4); Mean Corpuscular Hemoglobin 28.2 pg (27.0-31.2); Mean Corpuscular Volume 86.5 fl (80-94); Nucleated Red Blood Cells % 0 %; Platelet Count 280 K/mm3 (142-424); Red Blood Count 3.94 M/mm3 (4.60-6.20); Red Cell Distribution Width-SD 43.8 fL; White Blood Count 9.5 K/mm3 (4.8-10.8)
[2025-05-05 06:56] LABS: Chloride 98 mmol/L (98-107)
[2025-05-05 06:57] LABS: Albumin Level 3.6 g/dl (3.5-5.0); Potassium 3.7 mmoL/L (3.5-5.1); Sodium 131 mmol/L (136-145)
[2025-05-05 06:59] LABS: Alanine Aminotransferase 21 U/L (12-78); Anion Gap 8.7 mEq/L (5-15); Aspartate Amino Transferase 25 U/L (17-59); Blood Urea Nitrogen 21 mg/dl (9-20); Carbon Dioxide 28 mmol/L (22.0-30.0); Creatinine Clearance Estimated 43 mL/min (50-200); Creatinine,Serum 1.60 mg/dl (0.66-1.25); Estimated Glomerular Filt Rate 41 ml/min (>60); GFR (African American) 50 ML/MIN (>60)
[2025-05-05 07:00] LABS: Albumin/Globulin Ratio 1.0 (1.1-1.8); Alkaline Phosphatase 87 U/L (38-126); Bilirubin,Total 0.9 mg/dl (0.2-1.3); Calcium 9.3 mg/dl (8.4-10.2); Globulin 3.6 g/dL (1.3-3.2); Glucose 92 mg/dl (74-100); Total Protein,Serum 7.2 g/dl (6.3-8.2)
[2025-05-05 08:00] VITALS: BP 110/59; PULSE 110; RESP 18; TEMP 37.1; O2SAT 96
[2025-05-05 09:00] VITALS: PULSE 80
--- NOTE | 2025-05-05 09:04 | HMH.PHAINT1 ---
Pharmacy Intervention Comments: Home medication list verified using list from outpatient pharmacy, office notes and pt interview
[2025-05-05] MEDS: METOPROLOL SUCCINATE XL 25MG TABLET 25 MG PO (09:28)
[2025-05-05] MEDS: PANTOPRAZOLE 40MG TABLET 40 MG PO (09:28)
--- NOTE | 2025-05-05 10:01 | EXP.DC.SUM ---
General Admission date:: 05/04/25 Discharge date: 05/05/25 HPI HPI HPI: 85-year-old male patient presents to ER with reports of weakness and GI symptoms since shortly after . After he developed some abdominal pain and vomiting. Once the vomiting subsided he began having diarrhea. He states he had that for a couple of days then it stopped and then it returned again for a couple more days. He is somewhat of a poor historian so obtaining history is difficult. is no longer with him at the bedside. He has not had any diarrhea or vomiting in the last week. Still has abdominal pain. reported to the ER lack of appetite however he states he has been eating some just not very much. He is unable to tell me if food makes the pain worse or if he just does not have an appetite. He denies fever chills or bodyaches. He has had some shortness of breath with activity. Denies chest pain. Workup in the ER showed unremarkable CBC. BUN/creatinine 24/1.5 however this appears to be his baseline. CRP 125, proBNP 1910 and a lipase of 573. Urinalysis is unremarkable CT abdomen pelvis showed some acute diverticulitis. He was also found to be in an irregular rhythm. EKGs done in the ER show he goes between sinus rhythm and atrial fibs. Atrial fibrillation is 101 per EKG. While in sinus rhythm he is having pauses lasting approximately 2 seconds. His sinus rhythm rate is around 74. ER physician did discuss with cardiology. Plan to monitor on telemetry tonight and he will see in the morning for possible pacemaker placement. Patient is supposed to be on Eliquis for his atrial fibs however he stopped taking that about 6 to 8 months ago because it caused his legs to break out . Unsure if this is bruising he is referring to or actually a rash. Hospital Course Hospital Course Hospital Course: Mr. Lantigua an 85-year-old male with history of PAC, diverticulosis, gout, exocrine pancreatic insufficiency. He presented with abdominal pain along with other complaints. He is a poor historian so gather information is difficult. He reports some episodes of nausea vomiting and diarrhea since . Sounds like they last a couple days then resolved and then returned. He has some left lower quadrant abdominal pain states he has not been eating very much. After discussion with the ER physician in light of his CT findings of acute diverticulitis/colitis I have agreed to admit the patient for further workup and treatment. Feeling better by morning. Did not want to stay in the hospital. Was tolerating p.o. intake and having bowel movements. Afebrile with Normal white count. Kidney function at baseline with creatinine 1.6. Cardiology evaluated for his paroxysmal A-fib. Stable discharge home on oral antibiotics for diverticulitis. Problems addressed as follows: Acute diverticulitis: - patient received it appears he has been to see GI recently for similar complaints but is also noticed that he reported some bloating, belching, weight loss of about 10 pounds and rectal bleeding. He was placed on Creon and Xifaxan and they planned for endoscopy. That has not been done yet. He was started on Zosyn for diverticulitis. States he is feeling better by the morning. Ambulating with a walker. Tolerating p.o. intake with nutritional challenge. Will transition to Augmentin to complete 7-day course for diverticulitis. On imaging he has no free air or abscess. Recommend close follow-up with PCP for further management and reconsideration of scope when diverticulitis resolves. Lipase marginally elevated at 3-500 but has no upper abdominal pain. No concern for clinically significant pancreatitis. And no findings on CT of pancreatitis. Paroxysmal A-fib/sinus pause Hypertension - Patient is found to be in and out of atrial Fib and sinus rhythm. He had been prescribed Eliquis for his atrial fibs however stopped taking that about 6 to 8 months ago because it caused his legs to break out . He had a loop recorder done May 02 which showed predominantly atrial fibs with a rate up to 148. Started on Lovenox. Cardiology was consulted. Patient had some pauses lasting about 2 seconds while in sinus rhythm in the ER. Monitored over night on telemetry. No significant pauses longer than what was seen on EKG. Cardiology recommends reducing metoprolol succinate to 12.5 mg daily. 2-week event monitor placed at discharge. Transition to Xarelto 15 mg daily. Follow-up with cardiology as an outpatient. Patient high risk for falls, evaluated by therapy, recommend home health. Patient not interested in therapy. Will discharge home without therapy. Increased risk for readmission. Total time spent on discharge 32 minutes in counseling, documentation, chart review, and direct care with patient. Exam Data for Last 24 hours Vital signs and Labs for Last 24 Hours: Temp Pulse Resp BP Pulse Ox O2 Del Method 98.7 F 110 H 18 110/59 L 96 Room Air 05/05/25 08:00 05/05/25 08:00 05/05/25 08:00 05/05/25 08:00 05/05/25 08:00 05/05/25 08:00 Laboratory Results - last 24 hr 05/04/25 18:14: WBC 9.7, RBC 4.10 L, Hgb 11.5 L, Hct 35.2 L, MCV 85.9, MCH 28.0, MCHC 32.7, RDW 13.9, Plt Count 291, MPV 8.7, Neut % (Auto) 77.5, Lymph % (Auto) 11.3, [place] % (Auto) 8.9, Eos % (Auto) 1.6, Baso % (Auto) 0.3, Neut # (Auto) 7.5, Lymph # (Auto) 1.1, [place] # (Auto) 0.9, Eos # (Auto) 0.2, Baso # (Auto) 0.0, Sodium 133 L, Potassium 3.7, Chloride 95 L, Carbon Dioxide 25, Anion Gap 16.7 H, BUN 24 H, Creatinine 1.50 H, Estimated Creat Clear 46, Estimated GFR 45 L, Est GFR ( Amer) 54 L, Glucose 100, Calcium 9.4, Total Bilirubin 0.9, AST 35, ALT 21, Alkaline Phosphatase 96, Troponin I 0.02, C-Reactive Protein 125.5 H, NT-Pro-B Natriuret Pep 1910 H, Total Protein 7.5, Albumin 3.9, Globulin 3.6 H, Albumin/Globulin Ratio 1.1, Lipase 573 H, TSH 2.65, Free T4 1.49, SARS-CoV-2 (PCR) Not detected, Influenza Type A (PCR) Not detected, Influenza Type B (PCR) Not detected, RSV (PCR) Not detected, Rhinovirus (PCR) Not detected 05/04/25 21:05: Troponin I 0.02 05/05/25 00:09: Urine Color Yellow, Urine Appearance Clear, Urine pH 6.0, Ur Specific [place] 1.020, Urine Protein Negative, Urine Glucose (UA) Negative, Urine Ketones Negative, Urine Blood 1+ A, Urine Nitrate Negative, Urine Bilirubin Negative, Urine Urobilinogen 0.2, Ur Leukocyte Esterase Negative, Urine RBC 5-10 05/05/25 06:36: WBC 9.5, RBC 3.94 L, Hgb 11.1 L, Hct 34.1 L, MCV 86.5, MCH 28.2, MCHC 32.6, RDW 13.8, Plt Count 280, MPV 8.7, Neut % (Auto) 77.3, Lymph % (Auto) 11.6, [place] % (Auto) 8.8, Eos % (Auto) 1.6, Baso % (Auto) 0.3, Neut # (Auto) 7.4, Lymph # (Auto) 1.1, [place] # (Auto) 0.8, Eos # (Auto) 0.2, Baso # (Auto) 0.0, Sodium 131 L, Potassium 3.7, Chloride 98, Carbon Dioxide 28, Anion Gap 8.7, BUN 21 H, Creatinine 1.60 H, Estimated Creat Clear 43, Estimated GFR 41 L, Est GFR ( Amer) 50 L, Glucose 92, Calcium 9.3, Total Bilirubin 0.9, AST 25 D, ALT 21, Alkaline Phosphatase 87, Total Protein 7.2, Albumin 3.6, Globulin 3.6 H, Albumin/Globulin Ratio 1.0 L I & O for Last 24 hours: Intake & Output 05/02/25 05/03/25 05/04/25 05/05/25 23:59 23:59 23:59 23:59 Intake Total 100 / 160 110 / 110 Output Total 240 / 240 Balance 100 / 160 -130 / -130 Weight 88.904 kg 88.904 kg Constitutional Constitutional: no acute distress, chronically ill appearing and cooperative *Routine HEENT Exam Head: Present normocephalic *Routine Respiratory Exam Respiratory: Present rhonchi, normal respiratory effort and symmetric chest movement *Routine Cardiovascular Exam Cardiovascular: Present RRR *Routine Abdominal Exam Abdominal: Present soft, normoactive bowel sounds and tenderness (mild in lower abdoman) *Routine Rectal Exam Patient deferred: visual exam *Routine Exam Patient deferred: penile exam *Routine Extremities Exam Extremities: Present full ROM, pulses intact and normal capillary refill *Routine Skin Exam Skin: Present warm *Routine Neurological Exam Neurological: Present alert, oriented X3 and moving all extremities; Absent sensory deficit or motor deficit Routine Psychiatric Exam Psychiatric: Present normal affect, normal thought process, cooperative, good insight and good judgment Results Data Completed and Pending Labs on day of discharge: Labs from last 24 hours 05/05/25 05/05/25 05/04/25 06:36 00:09 21:05 WBC 9.5 RBC 3.94 L Hgb 11.1 L Hct 34.1 L MCV 86.5 MCH 28.2 MCHC 32.6 RDW 13.8 Plt Count 280 MPV 8.7 Neut % (Auto) 77.3 Lymph % (Auto) 11.6 [place] % (Auto) 8.8 Eos % (Auto) 1.6 Baso % (Auto) 0.3 Neut # (Auto) 7.4 Lymph # (Auto) 1.1 [place] # (Auto) 0.8 Eos # (Auto) 0.2 Baso # (Auto) 0.0 Sodium 131 L Potassium 3.7 Chloride 98 Carbon Dioxide 28 Anion Gap 8.7 BUN 21 H Creatinine 1.60 H Estimated Creat Clear 43 Estimated GFR 41 L Est GFR ( Amer) 50 L Glucose 92 Calcium 9.3 Total Bilirubin 0.9 AST 25 D ALT 21 Alkaline Phosphatase 87 Troponin I 0.02 C-Reactive Protein NT-Pro-B Natriuret Pep Total Protein 7.2 Albumin 3.6 Globulin 3.6 H Albumin/Globulin Ratio 1.0 L Lipase TSH Free T4 Urine Color Yellow Urine Appearance Clear Urine pH 6.0 Ur Specific [place] 1.020 Urine Protein Negative Urine Glucose (UA) Negative Urine Ketones Negative Urine Blood 1+ A Urine Nitrate Negative Urine Bilirubin Negative Urine Urobilinogen 0.2 Ur Leukocyte Esterase Negative Urine RBC 5-10 SARS-CoV-2 (PCR) Influenza Type A (PCR) Influenza Type B (PCR) RSV (PCR) Rhinovirus (PCR) 05/04/25 18:14 WBC 9.7 RBC 4.10 L Hgb 11.5 L Hct 35.2 L MCV 85.9 MCH 28.0 MCHC 32.7 RDW 13.9 Plt Count 291 MPV 8.7 Neut % (Auto) 77.5 Lymph % (Auto) 11.3 [place] % (Auto) 8.9 Eos % (Auto) 1.6 Baso % (Auto) 0.3 Neut # (Auto) 7.5 Lymph # (Auto) 1.1 [place] # (Auto) 0.9 Eos # (Auto) 0.2 Baso # (Auto) 0.0 Sodium 133 L Potassium 3.7 Chloride 95 L Carbon Dioxide 25 Anion Gap 16.7 H BUN 24 H Creatinine 1.50 H Estimated Creat Clear 46 Estimated GFR 45 L Est GFR ( Amer) 54 L Glucose 100 Calcium 9.4 Total Bilirubin 0.9 AST 35 ALT 21 Alkaline Phosphatase 96 Troponin I 0.02 C-Reactive Protein 125.5 H NT-Pro-B Natriuret Pep 1910 H Total Protein 7.5 Albumin 3.9 Globulin 3.6 H Albumin/Globulin Ratio 1.1 Lipase 573 H TSH 2.65 Free T4 1.49 Urine Color Urine Appearance Urine pH Ur Specific [place] Urine Protein Urine Glucose (UA) Urine Ketones Urine Blood Urine Nitrate Urine Bilirubin Urine Urobilinogen Ur Leukocyte Esterase Urine RBC SARS-CoV-2 (PCR) Not detected Influenza Type A (PCR) Not detected Influenza Type B (PCR) Not detected RSV (PCR) Not detected Rhinovirus (PCR) Not detected DS: Diagnosis Discharge Diagnosis (1) Acute diverticulitis: Status: Acute Code(s): K57.92 - Diverticulitis of intestine, part unspecified, without perforation or abscess without bleeding (2) Paroxysmal A-fib: Status: Acute Code(s): I48.0 - Paroxysmal atrial fibrillation (3) Sinus pause: Status: Acute Code(s): I45.5 - Other specified heart block (4) SOB (shortness of breath) on exertion: Status: Acute Code(s): R06.02 - Shortness of breath (5) Hypertension: Status: Acute Code(s): I10 - Essential (primary) hypertension Qualifiers: Hypertension type: unspecified Qualified Code(s): I10 - Essential (primary) hypertension Meds Home Medications and Allergies Home Medications ?Medication ?Instructions ?Recorded ?Confirmed ?Type allopurinol 300 mg tablet 300 mg PO DAILY #30 tabs 04/03/25 05/06/25 Rx [id number] 1 cap PO TID 05/04/25 05/06/25 History (pork)36,000-114,000-180k unit capsule,del rel (Creon) rifaximin 550 mg tablet (Xifaxan) 550 mg PO DAILY 05/04/25 05/06/25 History amoxicillin 875 mg-potassium 1 tab PO BID 7 days #14 tabs 05/05/25 05/06/25 Rx clavulanate 125 mg tablet metoprolol succinate 25 mg 12.5 mg (1/2 x 25 mg) PO DAILY #30 05/05/25 05/06/25 Rx tablet,extended release 24 hr tabs (Toprol XL) rivaroxaban 15 mg tablet (Xarelto) 15 mg PO QPMWITHMEAL 30 days #30 05/05/25 05/06/25 Rx tabs New Prescriptions to Start Prescriptions: amoxicillin-pot clavulanate Alexis Cordero rivaroxaban [Xarelto] Alexis Cordero Allergies Allergy/AdvReac Type Severity Reaction Status Date / Time No Known Allergies Allergy Verified 05/06/25 14:01 Discharge Plan Disposition Patient Disposition: Home, Self-Care Condition: Fair Follow up Plan Follow up with: Birdie Raphael APRN [Nurse Practitioner, Cardiology] - 05/27/25 10:15 am Gamal Fournier DO [Primary Care Provider, Family Practice] - 05/13/25 2:45 pm Prescriptions/Medication Reconciliation: New amoxicillin-pot clavulanate 875-125 mg tablet 1 tab PO BID 7 Days Qty: 14 0RF Xarelto 15 mg Tablet 15 mg PO QPMWITHMEAL 30 Days Qty: 30 0RF Continued allopurinol 300 mg tablet 300 mg PO DAILY Qty: 30 2RF Creon 36,000-114,000- 180,000 unit Capsule,Delayed Release(Dr/Ec) 1 cap PO TID Rx Instructions: administer with meals and/or snacks Xifaxan 550 mg Tablet 550 mg PO DAILY Rx Instructions: take 1 tablet daily for 9 days Changed metoprolol succinate [Toprol XL] 25 mg tablet extended release 24 hr 12.5 mg PO DAILY Qty: 30 5RF Discontinued meloxicam 15 mg tablet 15 mg PO DAILY Problem Reconciliation Problems Reviewed?: Yes Patient Discharge Instructions ACTIVITY: Continue current activity DIET: continue same diet Patient Instructions: DI for Heart Block, DI for Diverticulitis Print Language: Frisian Providers Primary Care Provider: Gamal Fournier Admit Provider: Alexis Cordero Attending Provider: Alexis Cordero
--- NOTE | 2025-05-05 10:04 | HMH.PHAAMS2 ---
- Antimicrobial Stewardship Review culture & sensitivity review Stewardship interventions: culture & sensitivity review (CURRENTLY ON ZOSYN FOR ACUTE ABDOMEN, AFEBRILE AND WBC WNL, CX PENDING.)
--- NOTE | 2025-05-05 10:06 | EXP.CARD.CON ---
History of Present Illness History of Present Illness Consult date: 05/05/25 Requesting physician: Alexis Cordero Chief complaint: abdomianl pain History of present illness: Sidney Lantigua is an 82-year-old white male with a past medical history of a normal coronary angiogram January 2023, hypertension, hyperlipidemia, paroxysmal atrial fibrillation previously noncompliant with OAC who presented to emergency department with complaints of generalized weakness and GI symptoms starting after Thanksgiving. Specifically patient was having intermittent episodes of nausea, vomiting and diarrhea which have resolved. He also endorsed left-sided abdominal pain. Patient underwent a CT abdomen pelvis which was positive for acute diverticulitis. Morning labs: Sodium 131, BUN 21, creatinine 1.6 (baseline 1.3-1.9) urinalysis was unremarkable. Troponin on admission was negative. Patient was also noted to be in A-fib upon presentation to ER with rates in the low 100s. Cardiology was asked to evaluate for pauses noted on rhythm strips. EKGs and rhythm strips were reviewed which revealed intermittent 1.2 to 1.4 seconds pauses in the setting of sinus rhythm with frequent PACs. Patient denies episodes of syncope. Patient recently wore a 2-week event monitor 04/2025 which revealed A-fib/flutter with rates ranging from 62 to 148 bpm with an average of 107 and 100% burden. There were also frequent PVCs at a 0.33% burden. Patient was recently started on metoprolol succinate 25 mg for sinus tachycardia. Patient reports he is not interested in discussing a pacemaker at this time. [facility] Disclaimer: The information contained in this section may have been updated after the patient was seen, as this information can be updated by other users. Medical History Sinus tachycardia SOB (shortness of breath) on exertion Hypertension Paroxysmal A-fib Osteoarthritis of left hip GERD (gastroesophageal reflux disease) Surgical History History of total left hip arthroplasty History of cholecystectomy History of esophagogastroduodenoscopy (EGD) History of colonoscopy S/P total right hip arthroplasty Family History Father Dementia Mother Pneumonia Social History (Reviewed 05/05/25 @ 01:41 by MING Fox Smoking Status: Never smoker smoking status start date: Age 21 through age 66 years smoked: 46 smoking status stop date: 2007 second hand exposure: No alcohol intake: never substance use type: denies use current occupational status: retired Travel in the last 8 weeks?: None household members: spouse housing: house lives independently: No marital status: education level: high school service: Yes skilled nursing: No current occupational exposures/hazards: No caffeine: Yes paris/anabaptist: Cheondoism special paris needs: No agree to transfusion: No do you feel safe at home: Yes victim of physical abuse: No victim of emotional abuse: No victim of sexual abuse: No would you like helpful sources: No Have you lived/traveled outside [place] in past 30 days?: No Contact w/someone who lives/traveled outside [place] past 30 days?: No Exposure to someone with infectious disease in past 14 days?: No Do you have a fever (greater than 100.4 F or 38 C)?: No Have you tested positive for COVID-19?: No Exposed to someone with COVID-19 in past 14 days?: No Do you have a sore throat?: No Do you have a cough?: No Do you have any weakness?: No Are you experiencing any nausea/vomitting?: No Do you have any diarrhea?: No Are you experiencing any unusual bleeding?: No Do you have any muscle aches/pain?: No Do you have any abdominal pain?: No Are you experiencing loss of taste or smell?: No Review of Systems Review of Systems Review of systems:: pertinent systems reviewed and negative unless documented below Constitutional Comments: Generalized weakness ENT Ears, Nose, Mouth, and Throat: Denies dizziness *Neurologic Neurologic: Denies confusion and Denies dizziness Psychiatric Psychiatric: Denies confusion Exam Data for Last 24 hours Vital signs and Labs for Last 24 Hours: Temp Pulse Resp BP Pulse Ox O2 Del Method 98.7 F 110 H 18 110/59 L 96 Room Air 05/05/25 08:00 05/05/25 08:00 05/05/25 08:00 05/05/25 08:00 05/05/25 08:00 05/05/25 08:00 Laboratory Results - last 24 hr 05/04/25 18:14: WBC 9.7, RBC 4.10 L, Hgb 11.5 L, Hct 35.2 L, MCV 85.9, MCH 28.0, MCHC 32.7, RDW 13.9, Plt Count 291, MPV 8.7, Neut % (Auto) 77.5, Lymph % (Auto) 11.3, [place] % (Auto) 8.9, Eos % (Auto) 1.6, Baso % (Auto) 0.3, Neut # (Auto) 7.5, Lymph # (Auto) 1.1, [place] # (Auto) 0.9, Eos # (Auto) 0.2, Baso # (Auto) 0.0, Sodium 133 L, Potassium 3.7, Chloride 95 L, Carbon Dioxide 25, Anion Gap 16.7 H, BUN 24 H, Creatinine 1.50 H, Estimated Creat Clear 46, Estimated GFR 45 L, Est GFR ( Amer) 54 L, Glucose 100, Calcium 9.4, Total Bilirubin 0.9, AST 35, ALT 21, Alkaline Phosphatase 96, Troponin I 0.02, C-Reactive Protein 125.5 H, NT-Pro-B Natriuret Pep 1910 H, Total Protein 7.5, Albumin 3.9, Globulin 3.6 H, Albumin/Globulin Ratio 1.1, Lipase 573 H, TSH 2.65, Free T4 1.49, SARS-CoV-2 (PCR) Not detected, Influenza Type A (PCR) Not detected, Influenza Type B (PCR) Not detected, RSV (PCR) Not detected, Rhinovirus (PCR) Not detected 05/04/25 21:05: Troponin I 0.02 05/05/25 00:09: Urine Color Yellow, Urine Appearance Clear, Urine pH 6.0, Ur Specific [place] 1.020, Urine Protein Negative, Urine Glucose (UA) Negative, Urine Ketones Negative, Urine Blood 1+ A, Urine Nitrate Negative, Urine Bilirubin Negative, Urine Urobilinogen 0.2, Ur Leukocyte Esterase Negative, Urine RBC 5-10 05/05/25 06:36: WBC 9.5, RBC 3.94 L, Hgb 11.1 L, Hct 34.1 L, MCV 86.5, MCH 28.2, MCHC 32.6, RDW 13.8, Plt Count 280, MPV 8.7, Neut % (Auto) 77.3, Lymph % (Auto) 11.6, [place] % (Auto) 8.8, Eos % (Auto) 1.6, Baso % (Auto) 0.3, Neut # (Auto) 7.4, Lymph # (Auto) 1.1, [place] # (Auto) 0.8, Eos # (Auto) 0.2, Baso # (Auto) 0.0, Sodium 131 L, Potassium 3.7, Chloride 98, Carbon Dioxide 28, Anion Gap 8.7, BUN 21 H, Creatinine 1.60 H, Estimated Creat Clear 43, Estimated GFR 41 L, Est GFR ( Amer) 50 L, Glucose 92, Calcium 9.3, Total Bilirubin 0.9, AST 25 D, ALT 21, Alkaline Phosphatase 87, Total Protein 7.2, Albumin 3.6, Globulin 3.6 H, Albumin/Globulin Ratio 1.0 L I & O for Last 24 hours: Intake & Output 05/02/25 05/03/25 05/04/25 05/05/25 23:59 23:59 23:59 23:59 Intake Total 100 / 160 110 / 110 Output Total 240 / 240 Balance 100 / 160 -130 / -130 Weight 196 lb 195 lb 15.996 oz Constitutional Constitutional: no acute distress *Routine Respiratory Exam Respiratory: Present CTA bilaterally and symmetric chest movement *Routine Cardiovascular Exam Cardiovascular: Present Normal S1, Normal S2 and irregularly irregular *Routine Abdominal Exam Abdominal: Present soft and normoactive bowel sounds; Absent tenderness *Routine Extremities Exam Extremities: Present full ROM and normal capillary refill; Absent edema *Routine Skin Exam Skin: Present intact, dry and warm Detailed Neck Exam: Thyroids Thyroid: Absent bruit Meds Home Medications and Allergies Home Medications ?Medication ?Instructions ?Recorded ?Confirmed ?Type allopurinol 300 mg tablet 300 mg PO DAILY #30 tabs 04/03/25 05/04/25 Rx meloxicam 15 mg tablet 15 mg PO DAILY 04/29/25 05/04/25 History vsginf-[id number] 1 cap PO TID 05/04/25 05/04/25 History (pork)36,000-114,000-180k unit capsule,del rel (Creon) rifaximin 550 mg tablet (Xifaxan) 550 mg PO DAILY 05/04/25 05/04/25 History amoxicillin 875 mg-potassium 1 tab PO BID 7 days #14 tabs 05/05/25 Rx clavulanate 125 mg tablet furosemide 20 mg tablet (Lasix) 20 mg PO BID 05/05/25 05/05/25 History metoprolol succinate 25 mg 12.5 mg (1/2 x 25 mg) PO DAILY #30 05/05/25 05/04/25 Rx tablet,extended release 24 hr tabs (Toprol XL) New Prescriptions to Start Prescriptions: amoxicillin-pot clavulanate Alexis Cordero Allergies Allergy/AdvReac Type Severity Reaction Status Date / Time No Known Allergies Allergy Verified 04/29/25 15:04 Assessment and Plan *Assessment and plan (1) Acute diverticulitis: Status: Acute Category: Medical Code(s): K57.92 - Diverticulitis of intestine, part unspecified, without perforation or abscess without bleeding (2) Paroxysmal A-fib: Status: Acute Category: Medical Code(s): I48.0 - Paroxysmal atrial fibrillation (3) Sinus pause: Status: Acute Category: Medical Code(s): I45.5 - Other specified heart block (4) PAC (premature atrial contraction): Status: Acute Category: Medical Code(s): I49.1 - Atrial premature depolarization Plan Acute diverticulitis Episodes of vomiting and diarrhea-resolved Generalized weakness Will defer to primary service History of paroxysmal atrial fibrillation Noncompliance with OAC 1.2 to 1.4 seconds pauses Frequent PACs 2 EKGs for review-the first one shows A-fib with with RVR at a rate of 101. The second one shows sinus rhythm with frequent PACs with 1.2 to 1.4-second pauses. Patient denies any episodes of syncope Recent 2-week event monitor showed A-fib/flutter with with rates ranging from 60 to 148 bpm with average of 107. 100% burden. 0.33% burden of PVCs noted Patient was recently started on metoprolol succinate 25 mg p.o. daily for tachycardia and PACs. Will decrease to 12.5mg po daily Patient states he is not interested in discussing a pacemaker until after the first of the year Please discharge patient home in a 2-week event monitor Start Xarelto 15 mg p.o. daily Echo 03/28/2025 showed a normal biventricular systolic function, mild RV dilation, biatrial dilation, no significant valvular stenosis or regurg and a small size anterior pericardial effusion without indication of tamponade. 05/05/2025: Patient is CV stable for discharge home. Please have patient decrease metoprolol succinate to 12.5 mg p.o. daily and discharge patient home on 2-week event monitor. Patient also needs to start Xarelto 15 mg p.o. daily for A-fib. Follow-up in cardiology clinic in 1 week. Cardiac meds for discharge: Metoprolol succinate 12.5 mg p.o. daily Xarelto 15 mg p.o. daily
--- NOTE | 2025-05-05 10:23 | HMH.PTEV ---
Physical Therapy Evaluation Rehab PT IP Evaluation Start: 05/05/25 00:05 Freq: ONCE Status: Active Protocol: Document 05/05/25 10:06 EDGAR (Rec: 05/05/25 10:11 EDGAR [id number]) Subjective/History History History Per H&P: 85-year-old male patient presents to ER with reports of weakness and GI symptoms since shortly after Thanksgiving. After Thanksgiving he developed some abdominal pain and vomiting. Once the vomiting subsided he began having diarrhea. He states he had that for a couple of days then it stopped and then it returned again for a couple more days. He is somewhat of a poor historian so obtaining history is difficult. is no longer with him at the bedside. He has not had any diarrhea or vomiting in the last week. Still has abdominal pain. reported to the ER lack of appetite however he states he has been eating some just not very much. He is unable to tell me if food makes the pain worse or if he just does not have an appetite. He denies fever chills or bodyaches. He has had some shortness of breath with activity. Denies chest pain. Workup in the ER showed unremarkable CBC. BUN/ creatinine 24/1.5 however this appears to be his baseline. CRP 125, proBNP 1910 and a lipase of 573. Urinalysis is unremarkable CT abdomen pelvis showed some acute diverticulitis. He was also found to be in an irregular rhythm. EKGs done in the ER show he goes between sinus rhythm and atrial fibs. Atrial fibrillation is 101 per EKG. While in sinus rhythm he is having pauses lasting approximately 2 seconds. His sinus rhythm rate is around 74. ER physician did discuss with cardiology. Plan to monitor on telemetry tonight and he will see in the morning for possible pacemaker placement. Patient is supposed to be on Eliquis for his atrial fibs however he stopped taking that about 6 to 8 months ago because it caused his legs to break out . Unsure if this is bruising he is referring to or actually a rash. Subjective Subjective PLOF: IND with mobility using a rollator. Still drives. HOME: Lives with his in a home with 1 ANJEL. ASSIST: able to provide 24/7 assist if needed. [facility] How much help from another person do you currently need... Turning from your None back to your side while in a flat bed without using bedrails? Moving from lying on None back to sitting on the side of a flat bed without using bedrails? Moving to and from a None bed to a chair ( including a wheelchair)? Standing up from a None chair using your arms? (e.g., wheelchair, bedside chair) Walking in hospital None room? Climbing 3-5 steps A little with a railing? Mobility Score 23 Mobility Level [facility] Mobility 7 Walk 25 feet or more Mobility Calculator Rehab PT IP Eval Objective Appearance Patient Behavior Appropriate,Cooperative Patient Orientation Person Difficulty following none instructions Speech Pattern Clear Ambulation Patient Able to Yes Ambulate Ambulation Observation IP General Gait Wide Based Gait Pattern Observation Ambulation Distance 30 (feet) Ambulation Assistive Rolling Walker Device Ambulation Ability Supervision/Stand by Balance Ability to Arise Able, uses arms to help Sitting Balance Steady, safe Standing Balance Steady, wide stance Dynamic Sitting Good Balance Ability Dynamic Standing Good Balance Ability Transfers Bed Transfer Ability Supervision/Stand by Sit to Stand Bed Supervision/Stand by Transfer Ability Rehab PT IP prob,goals,plan Problems Date of Evaluation: 05/05/25 Rehab Potential Rehab Potential Innapropriate for Skilled Therapy Discharge Plan PT Discharge Plan Pt appears to be at his baseline in mobility and is not appropriate for skilled acute-level PT at this time. PT recommending OP PT to address baseline strength and endurance deficits. Eval Complexity Eval Charge Codes 44931 - Moderate Complexity PHYSICIAN CERTIFICATION: I certify the specified therapy services for Sidney Lantigua are required, authorized, and reviewed every 30 days.
[2025-05-05 12:00] VITALS: BP 121/53; PULSE 110; RESP 14; TEMP 36.5; O2SAT 97
[2025-05-05 12:40] VITALS: PULSE 100
--- NOTE | 2025-05-05 12:44 | DIET.NUTRFU ---
RD saw patient secondary to unintentional weight loss. Patient reported he lost 10# over last couple weeks d/t GI distress. He was having diarrhea, is seeing Dr Goodman. Patient is happy with weight loss based on elevated BMI. Discouraged against rapid weight loss which may cause weakness and risk for malnutrition. was present and understood, but reported that he has not been eating well since . Suggested a protein shake or high protein foods to add back in
--- NOTE | 2025-05-05 13:03 | SW/DCPLANNER ---
PT evaluated patient and recommended outpatient PT services. Patient and his have refused outpatient services at this time. Patient is also not interested in home health services. Patient stated that he has a rollator and rolling walker at home. No further needs at this time. Patient will discharge home today.
--- NOTE | 2025-05-06 10:47 | SW/DCPLANNER ---
Spoke with patient on the phone. Patient stated that he has been sleeping alot and that his legs and feet are swollen. I suggested propping his feet up and was going to call cardiology to see if he cant be seen quicker or call his primary care provider to see if he can get in quicker and he stated no that he is fine. Patient stated that he was able to get his new medicine picked up. Patient stated that he has no concerns or questions at this time. Grady Maravilla
== END 2025-05-05 14:30 | disposition home or self-care (01) ==
LOC: ER 17:48 → 2ND 21:20
PROVIDERS: Nurse Practitioner Acute Care; Admitting Provider Internal Medicine Adolescent Medicine; Emergency Provider Student in an Organized Health Care Education/Training Program; PCP Internal Medicine; Visit Provider Internal Medicine Adolescent Medicine
DX: I48.0 Paroxysmal atrial fibrillation (principal); K57.32 Diverticulitis of large intestine without perforation or abscess without bleeding; I45.5 Other specified heart block; R06.02 Shortness of breath; I10 Essential (primary) hypertension; I49.1 Atrial premature depolarization; K21.9 Gastro-esophageal reflux disease without esophagitis; Z90.49 Acquired absence of other specified parts of digestive tract; Z96.643 Presence of artificial hip joint, bilateral; Z87.891 Personal history of nicotine dependence; Z79.899 Other long term (current) drug therapy; R91.8 Other nonspecific abnormal finding of lung field
CPT/HCPCS: 36415; 71275; 74177; 80053; 81001; 83690; 83880; 84439; 84443; 84484; 85025; 86140; 87040; 87086; 87631; 93005; 93270; 97162; 99285; G0378; J1650; J2543; Q9967

== ENCOUNTER 2025-05-06 14:55 | Outpatient (CLI) | payer MEDICARE, SELFPAY ==
[2025-05-06 17:52] LABS: Uric Acid 4.7 mg/dl (3.5-8.5)
--- OUTSIDE RECORDS SUMMARY | 2025-05-07 18:58 | XMS_ITS | CCD ---
Author Organization Unknown Care Team Providers Care Crabbing Machine Operator Name Role Phone Unavailable Primary Care Provider Unavailabl e Unavailable Chronic Care Management Unavaila ble Summary Purpose DataExchange Insurance Providers Payer name Policy type / Coverage type Covered green party ID Effective Begin Date Effective End Date [facility] [id number] Unknown Unknown Family History Family History data not found Medication Administered No Medication Administered data Reason For Visit No Reason For Visit data Medical Equipment No Medical Equipment data Advance Directives No Advance Directive data
--- OUTSIDE RECORDS SUMMARY | 2025-05-07 18:58 | XMS_ITS | Clinical Summary ---
Author Organization [email or web address] ([place], [place], [place], [place], [place]) Address [address] [place] [address] Care Team Providers Care Coating Operator Name Role Phone Quinten Peralta MD Primary Care Provider [phone] Allergies No known active allergies Medications AZITHROmycin [...] Date Ankur rded Speak language other than Jamaican at home Not on file 06/09/2023 Want [...] 02/26/2021, 02/23/2020 Medical Devices Implanted Type Area Raw Silk Grader Device Identifier Shelf Expiration Date Model / Serial / Lot Cup Clstr-Hole Altn Pcg5 52mm [id number] 2 - [id number] Implanted:Qty : 1 on 02/22/2023 by Willie Sheffield MD at [facility] [employer] Left: Hip EXACTECH [id number] 07/26/203252 / [id number] / Liner Ntrl Grp 5 36mm Id - [id number] Implanted:Qty : 1 on 02/22/2023 by Willie Sheffield MD at [facility] [employer] Left: Hip EXACTECH [id number] 11/24/202736 / [id number] / Stem Fem Pf Sz9 113mm - [id number] Implanted:Qty : 1 on 02/22/2023 by Willie Sheffield MD at [facility] [employer] Left: Hip EXACTECH [id number] 06/22/2027 / [id number] / Head Fem Delta 36mm +7mm - [id number] Implanted:Qty : 1 on 02/22/2023 by Willie Sheffield MD at [facility] [employer] Left: Hip EXACTECH [id number] 06/06/2027 / [id number] / Insurance [facility] ACCESS O MAP Advance Directives For more information, please contact: [phone] * Full Code (Latest Code Status on File) Date Activated Date Inactivated Comments 02/22/2023 10:35 AM 02/23/2023 2:19 PM * Full Code Date Activated Date Inactivated Comments 02/22/2023 6:12 AM 02/22/2023 10:35 AM Care Teams Coating Operator Relationship Specialty Start Date End Date Quinten Peralta MD [address] [place] [id number] PCP - General Family Medicine 02/22/23
--- OUTSIDE RECORDS SUMMARY | 2025-05-07 18:58 | XMS_ITS | CCD ---
Author Organization Unknown Care Team Providers Care Blood Collector Name Role Phone Unavailable Primary Care Provider Unavailabl e Unavailable Chronic Care Management Unavaila ble Summary Purpose DataExchange Insurance Providers Payer name Policy type / Coverage type Covered constitution party ID Effective Begin Date Effective End Date [facility] [id number] Unknown Unknown Family History Family History data not found Medication Administered No Medication Administered data Reason For Visit No Reason For Visit data Medical Equipment No Medical Equipment data Advance Directives No Advance Directive data
--- OUTSIDE RECORDS SUMMARY | 2025-05-07 18:58 | XMS_ITS | Referral Summary ---
Author Organization [employer] ([place], [place], [place], [place], [place]) Address [address] [place] [address] Care Team Providers Care Cafe Lead Name Role Phone Quinten Peralta MD Primary Care Provider [phone] Allergies No known active allergies Medications AZITHROmycin [...] Date Ankur rded Speak language other than Singaporean at home Not on file 06/09/2023 Want [...] on file Medical Devices Implanted Type Area Cleaning Attendant Device Identifier Shelf Expiration Date Model / Serial / Lot Cup Clstr-Hole Altn Pcg5 52mm [id number] 2 - [id number] Implanted:Qty : 1 on 02/22/2023 by Willie Sheffield MD at [facility] [employer] Left: Hip EXACTECH [id number] 07/26/203252 / [id number] / Liner Ntrl Grp 5 36mm Id 6 - [id number] Implanted:Qty : 1 on 02/22/2023 by Willie Sheffield MD at [facility] [employer] Left: Hip EXACTECH [id number] 11/24/2027 / [id number] / Stem Fem Pf Sz9 113mm [id number] Implanted:Qty : 1 on 02/22/2023 by Willie Sheffield MD at [facility] [employer] Left: Hip EXACTECH [id number] 06/22/2027 190 / [id number] / Head Fem Delta 36mm +7mm [id number] Implanted:Qty : 1 on 02/22/2023 by Willie Sheffield MD at [facility] [employer] Left: Hip EXACTECH [id number] 06/06/2027 / [id number] / Insurance [facility] ACCESS O MAP Advance Directives For more information, please contact: [phone] * Full Code (Latest Code Status on File) Date Activated Date Inactivated Comments 02/22/2023 10:35 AM 02/23/2023 2:19 PM * Full Code Date Activated Date Inactivated Comments 02/22/2023 6:12 AM 02/22/2023 10:35 AM Care Teams Cafe Lead Relationship Specialty Start Date End Date Quinten Peralta MD [address] [place] [id number] PCP - General Family Medicine 02/22/23
--- OUTSIDE RECORDS SUMMARY | 2025-05-07 18:58 | XMS_ITS | Encounter Summary ---
Author Organization [employer] ([place], [place], [place], [place], [place]) Address [address] [place] [address] Care Team Providers Care Noc Analyst Name Role Phone Quinten Peralta MD Primary Care Provider [phone] Encounter Details Date Type Department Care Team (Late st Contact Info) Description 02/21/2023 Surgery Prep [facility] Surgery Department [address] [place] [address] Willie Sheffield MD [address] [facility] 2nd [place] [address] Social History Tobacco Use Types Packs/Day Years [...] on filedocumented in this encounter Care Teams Noc Analyst Relationship Specialty Start Date End Date Quinten Peralta MD [address] [place] [id number] PCP - General Family Medicine 02/22/23 documented as of this encounter
--- OUTSIDE RECORDS SUMMARY | 2025-05-07 18:59 | XMS_ITS | Clinical Summary ---
Author Organization [facility] Address [address] [place] [address] Care Team Providers Care Family Services Specialist Name Role Phone Quinten Peralta MD Primary Care Provider [phone] Allergies No known active allergies Medications esomeprazole [...] (12/29/2022): Added automatically from request for surgery [id number] Family History Medical History Relation Name Comments [...] 12/20/2024 03/07/2022, , 02/23/2020 Insurance [facility] Care Teams Family Services Specialist Relationship Specialty Start Date End Date Quinten Peralta MD [address] [place] [address] PCP - General Family Medicine 10/28/22
== END 2025-05-06 23:59 | disposition home or self-care (01) ==
LOC: LAB.DROPOF 05-07 18:56
PROVIDERS: PCP Internal Medicine; Visit Provider Nurse Practitioner Family
DX: M25.50 Pain in unspecified joint (principal)
CPT/HCPCS: 84550